=== PATIENT | female | born 1945 | race Caucasian/White ===

== ENCOUNTER 2020-02-04 02:29 | Inpatient (IN) ==
[2020-02-04] MEDS ORDERED: dilTIAZem HCl 5 MG/ML 5 ML VIAL IV ONE (02:51)
[2020-02-04 03:14] LABS: Basophils # (auto) 0.03 K/uL (0-0.2); Basophils % (auto) 0.3 %; Eosinophils % (auto) 1.1 %; Hematocrit (blood only) 39.5 % (37-47); Immature Granulocytes # (auto) 0.03 K/uL (0.00-0.02); Immature Granulocytes % (auto) 0.3 %; Lymphocytes # (auto) 2.08 K/uL (1.2-3.4); Lymphocytes % (auto) 22.6 %; Mean Corpuscular Hemoglobin 29.6 pg (25-34); Mean Corpuscular Hgb Conc 30.4 g/dL (32-36); Mean Corpuscular Volume 97.5 fL (80-100); Mean Platelet Volume 11.8 fL (7.4-10.4); Monocytes # (auto) 0.73 K/uL (0.11-0.59); Monocytes % (auto) 7.9 %; Neutrophils # (auto) 6.25 K/uL (1.4-6.5); Neutrophils % (auto) 67.8 %; Platelet Count 274 K/uL (130-400); Red Blood Count 4.05 M/uL (4.2-5.4); White Blood Count 9.22 K/uL (4.8-10.8)
[2020-02-04 03:26] LABS: Albumin Level 3.4 gm/dl (3.4-5.0); BUN Creatinine Ratio 30.3 (10-20); Calcium 9.2 mg/dl (8.5-10.1); Creatinine Clr Calc Pharmacy 58.7 ml/min; Est GFR (African American) 58.6; Est GFR (Non-African American) 50.5; Magnesium 1.9 mg/dl (1.8-2.4); Potassium 4.5 mmol/L (3.5-5.1)
[2020-02-04 03:45] LABS: Albumin Globulin Ratio 0.8 (0.9-2); Bilirubin,Total 0.6 mg/dl (0.2-1); Globulin 4.1 gm/dl (2.5-4.0); Thyroid Stimulating Hormone 1.89 uIu/ml (0.300-4.500); Total Protein 7.5 gm/dl (6.4-8.2); Troponin I 0.112 ng/ml (0-0.045)
--- NOTE | 2020-02-04 04:05 | Emergency Department Note ---
Impression & Plan Atrial fibrillation with rapid ventricular response, Elevated troponin I level, Abdominal pain ED Provider Note NAME: HOLLEY FLOYD AGE: 74 SEX: F ARRIVES VIA: Ambulance INFORMANT: [Patient][, EMS] ED PROVIDER(S): Elsy Leiva DO CHIEF COMPLAINT: Lower abdominal pain PLAN: Disposition: Admission to the [facility] service Condition: [Good] MEDICAL DECISION MAKING: This is a 74-year-old female patient who presents to the emergency department complaining of pelvic abdominal pain. On physical exam, the patient has significant tachycardia. EKG reveals A. fib with RVR. The patient has no cardiac history. The patient received a dose of IV Cardizem prehospital which did not control her rate. She received a second dose here of 20 mg which brought the rate down into the 80s and 90s but she remains in A. fib. Chest x- ray shows significant cardiomegaly with mild congestive heart failure changes. O2 saturations remained stable. The patient does have a positive troponin. [facility] and [facility] will [facility] for further management. Triage Nursing notes reviewed and agree them. [Additional history obtained from] EMS [Prior medical records reviewed] Vital Signs: reviewed and remarkable for hypertension and tachycardia Differential diagnosis: STEMI, dysrhythmia, CHF ER treatment provided: IV Cardizem Diagnostics interpreted by me: ECG: A. fib with RVR at a rate of 125. There is T wave inversions in leads I and aVL. There is no EKG for comparison n Cardiac Monitoring: Atrial fibrillation with rapid ventricular response Laboratory studies: [See below] Imaging studies: As interpreted by me Chest [id number] cardiomegaly with evidence of congestive heart failure HPI: 74/F arrives for evaluation of lower abdominal pain. This is a 74-year-old female patient who called EMS tonight for lower abdominal pain that started around 10 PM. Upon EMS arrival, they noted that her heart rate was approximately 150. They did a twelve-lead EKG which revealed atrial fibrillation with rapid ventricular response. They called for medical command and were instructed to give 20 mg of IV Cardizem. This brought her rate down into the 90s but she remained in A. fib. The patient was noted to be tachypneic and to have some peripheral edema in her legs. Patient states that she denies any chest pain or shortness of breath. Her last bowel movement was 2 days ago. She denies any cardiac history. She does describe a history of a stroke sometime ago which left her with weakness in her left arm ROS: See above HPI for pertinent positives & negatives. A total of [10] systems reviewed and were otherwise negative. PAST MEDICAL HISTORY:Kidney stones, stroke, hypertension, diabetes PAST SURGICAL HISTORY:None according to the patient SOCIAL HISTORY:She lives with her and denies any tobacco or alcohol use HOME MEDICATIONS:See list ALLERGIES:None VITALS:[See Below] PHYSICAL EXAMINATION: HEENT: Head - normocephalic and atraumatic Pupils are equal, round, and reactive to light. Extraocular eye muscles are intact, and sclera are anicteric. Patient has yellow mucus discharge from both eyes nose - moist nasal mucosa without discharge. Mouth - moist buccal mucosa. Oropharynx is nonerythematous and there is no tonsillar exudate or edema noted. Neck: Supple; no JVD, nuchal rigidity, cervical lymphadenopathy. Heart: Irregularly irregular rhythm with a tachycardic rate there is a normal S1 and S2 with no murmurs, clicks, or gallops appreciated. Lungs: Clear to auscultation bilaterally with no wheezes, rales, or rhonchi. Abdomen: Soft, completely nontender, nondistended, with good bowel sounds. There are no palpable pulsatile masses or hepatosplenomegaly. There is no gu arding, rigidity, or rebound noted. Extremities: 2+ pitting edema both lower extremities Skin: warm and dry with good turgor and no rashes. ED COURSE: Times/Reassessments: 0245: The patient was evaluated in room C9. Prehospital medical command had been given with orders to give 20 mg of IV Cardizem. A complete history and physical was performed. An order was placed for continuous cardiac monitoring. The patient was in atrial fibrillation with a rapid ventricular response with occasional PVCs. Laboratory studies were drawn as above. A portable chest x-ray was obtained. A twelve-lead EKG was obtained. The patient was given a second dose of 20 mg of IV Cardizem. 0320: The patient's heart rate has come down to 90. She remains in atrial fibrillation. I reviewed some of the laboratory studies with the patient. She remains hemodynamically stable. 0400: I reevaluated the patient at this time. Her heart rate remains in the 80s. She is in atrial fibrillation. She is hungry at this time and is eating a turkey sandwich. I discussed the case with Dr. Idalmis Llanes who will evaluate the patient for further care. I have personally spent greater than 30 minutes of critical care time in the direct management of this patient. This includes bedside care, interpretation of diagnostic studies, and testing, discussion with consultants, patient, and family members, and other required patient management activities. This 30 minutes is in excess of all separately billable procedures. Elsy Leiva DO Past Med/Surg History Social History Preferred Language: Upper Sorbian Feels Safe at Home: Yes Smoking Status: Never smoker Allergies Allergies Allergy/AdvReac Type Severity Reaction Status Date / Time No Known Allergies Allergy Unverified 02/04/20 03:40 Home Meds Home Medications Medication Instructions Recorded Confirmed acetaminophen [Tylenol] 325 mg PO Q6H PRN 02/04/20 02/04/20 alprazolam 0.25 mg PO BID PRN 02/04/20 02/04/20 amlodipine 5 mg PO DAILY 02/04/20 02/04/20 aspirin [Ecotrin Low Strength] 81 mg PO DAILY 02/04/20 02/04/20 carvedilol 25 mg PO BID 02/04/20 02/04/20 cyanocobalamin (vitamin B-12) 1,000 mcg SUBLINGUAL DAILY 02/04/20 02/04/20 docusate sodium [Colace] 100 mg PO BID 02/04/20 02/04/20 fluticasone propionate [Flonase 2 spray INTRANASAL DAILY 02/04/20 02/04/20 Allergy Relief] ibuprofen 800 mg PO Q8H PRN 02/04/20 02/04/20 lisinopril 2.5 mg PO DAILY 02/04/20 02/04/20 metformin 1,000 mg PO BID 02/04/20 02/04/20 polyethylene glycol 3350 [Miralax] 17 g PO DAILY PRN 02/04/20 02/04/20 tamsulosin 0.4 mg PO DAILY 02/04/20 02/04/20 temazepam 7.5 mg PO HS PRN 02/04/20 02/04/20 Results & Data (ED) Vital Signs Vital Signs - 24 hr 02/04/20 02:41 02/04/20 02:58 02/04/20 03:02 Temperature 36.9 C Temperature Source Oral Pulse Rate 121 H 84 91 H Pulse Rate from SpO2 Sensor 87 79 Respiratory Rate 32 H 24 24 Respiratory Effort / Characteristics Short of Breath Respiratory Depth Normal Blood Pressure 170/102 H 144/84 H 140/87 Blood Pressure Mean 124 99 102 Pulse Oximetry 93 94 95 Oxygen Delivery Method Room Air Nasal Cannula Nasal Cannula Oxygen Flow Rate 2 2 Sepsis Recent Fever Within 48 Hours No Sepsis New/Unexplained Change in Mental Status No Sepsis Action Taken by Nursing No Action Required Oxygen Flow Rate - Titration Pulse Oximetry Post Tiitration 02/04/20 03:07 02/04/20 03:14 02/04/20 03:16 Temperature Temperature Source Pulse Rate 94 H 82 Pulse Rate from SpO2 Sensor 101 H 84 Respiratory Rate 21 21 Respiratory Effort / Characteristics Respiratory Depth Blood Pressure 141/72 H 132/91 Blood Pressure Mean 99 112 Pulse Oximetry 93 93 97 Oxygen Delivery Method Room Air Nasal Cannula Nasal Cannula Oxygen Flow Rate 2 2 Sepsis Recent Fever Within 48 Hours Sepsis New/Unexplained Change in Mental Status Sepsis Action Taken by Nursing Oxygen Flow Rate - Titration 2 Pulse Oximetry Post Tiitration 95 02/04/20 03:30 02/04/20 03:46 Temperature Temperature Source Pulse Rate 99 H 93 H Pulse Rate from SpO2 Sensor 89 108 H Respiratory Rate 24 17 Respiratory Effort / Characteristics Respiratory Depth Blood Pressure 153/94 H 149/106 H Blood Pressure Mean 107 120 Pulse Oximetry 97 97 Oxygen Delivery Method Nasal Cannula Nasal Cannula Oxygen Flow Rate 2 2 Sepsis Recent Fever Within 48 Hours Sepsis New/Unexplained Change in Mental Status Sepsis Action Taken by Nursing Oxygen Flow Rate - Titration Pulse Oximetry Post Tiitration Laboratory Data Result diagrams: 02/04/20 02:15 02/04/20 02:15 Lab Results 02/04/20 02/04/20 Range/Units 02:15 02:15 WBC 9.22 (4.8-10.8) K/uL RBC 4.05 L (4.2-5.4) M/uL Hgb 12.0 (12.0-16.0) g/dL Hct 39.5 (37-47) % MCV 97.5 (80-100) fL MCH 29.6 (25-34) pg MCHC 30.4 L (32-36) g/dL RDW Std Deviation 52.0 H (36.4-46.3) fL RDW Coeff of Moises 15.0 H (11.5-14.5) % Plt Count 274 (130-400) K/uL MPV 11.8 H (7.4-10.4) fL Immature Gran % (Auto) 0.3 % Neut % (Auto) 67.8 % Lymph % (Auto) 22.6 % Moody % (Auto) 7.9 % Eos % (Auto) 1.1 % Baso % (Auto) 0.3 % Neut # (Auto) 6.25 (1.4-6.5) K/uL Lymph # (Auto) 2.08 (1.2-3.4) K/uL Moody # (Auto) 0.73 H (0.11-0.59) K/uL Eos # (Auto) 0.10 (0-0.5) K/uL Baso # (Auto) 0.03 (0-0.2) K/uL Immature Gran # (Auto) 0.03 H (0.00-0.02) K/uL Sodium 143 (136-145) mmol/L Potassium 4.5 (3.5-5.1) mmol/L Chloride 109 H (98-107) mmol/L Carbon Dioxide 26 (21-32) mmol/L Anion Gap 8.0 (3-11) BUN 33 H (7-18) mg/dl Creatinine 1.08 (0.6-1.2) mg/dl Est Cr Clr Drug Dosing 58.7 ml/min Est GFR ( Amer) 58.6 Est GFR (Non-Af Amer) 50.5 BUN/Creatinine Ratio 30.3 H (10-20) Glucose 209 H (70-99) mg/dl Calcium 9.2 (8.5-10.1) mg/dl Magnesium 1.9 (1.8-2.4) mg/dl Total Bilirubin 0.6 (0.2-1) mg/dl AST 15 (15-37) U/L ALT 34 (12-78) U/L Alkaline Phosphatase 86 (45-117) U/L Troponin I 0.112 H* (0-0.045) ng/ml Total Protein 7.5 (6.4-8.2) gm/dl Albumin 3.4 (3.4-5.0) gm/dl Globulin 4.1 H (2.5-4.0) gm/dl Albumin/Globulin Ratio 0.8 L (0.9-2) Lipase 111 (73-393) U/L TSH 1.890 (0.300-4.500) uIu/ml Administered Medications Discontinued Medications Diltiazem HCl (Cardizem) Confirm Administered Dose 25 mg IV .STK-MED ONE Stop: 02/04/20 02:52 Last Admin: 02/04/20 02:57 Dose: 20 mg Documented by: [id number] Cosigned by: [id number] Discharge Plan Visit Data Chief Complaint: Cardiac Assessment Stated Complaint: Abdominal pain/A-fib ED Provider: Elsy Leiva Discharge Problem: Atrial fibrillation with rapid ventricular response, Elevated troponin I level, Abdominal pain Forms Stand Alone Forms: [facility] [employer] Prescriptions Prescriptions: No Action polyethylene glycol 3350 [Miralax] 17 gram/dose Powder 17 g PO DAILY PRN (Reason: Constipation) RF: 0 metformin 1,000 mg Tablet 1,000 mg PO BID RF: 0 alprazolam 0.25 mg Tablet 0.25 mg PO BID PRN (Reason: Anxiety) RF: 0 docusate sodium [Colace] 100 mg Capsule 100 mg PO BID RF: 0 temazepam 7.5 mg Capsule 7.5 mg PO HS PRN (Reason: Sleep) RF: 0 cyanocobalamin (vitamin B-12) 1,000 mcg Tablet, Sublingual 1,000 mcg SUBLINGUAL DAILY RF: 0 aspirin [Ecotrin Low Strength] 81 mg Tablet,Delayed Release (Dr/Ec) 81 mg PO DAILY RF: 0 acetaminophen [Tylenol] 325 mg Tablet 325 mg PO Q6H PRN (Reason: Pain) RF: 0 tamsulosin 0.4 mg Capsule 0.4 mg PO DAILY RF: 0 fluticasone propionate [Flonase Allergy Relief] 50 mcg/actuation [place],Suspension 2 spray INTRANASAL DAILY RF: 0 amlodipine 5 mg Tablet 5 mg PO DAILY RF: 0 lisinopril 2.5 mg Tablet 2.5 mg PO DAILY RF: 0 carvedilol 25 mg Tablet 25 mg PO BID RF: 0 ibuprofen 800 mg Tablet 800 mg PO Q8H PRN (Reason: rt knee pain) RF: 0 Discharge Problem: Abdominal pain Qualifiers: Abdominal location: lower abdomen, unspecified Qualified Code(s): R10.30 - Lo wer abdominal pain, unspecified
--- NOTE | 2020-02-04 06:15 | History and Physical Report ---
DATE OF ADMISSION: 02/04/2020 CHIEF COMPLAINT: Came with abdominal pain and found to be in rapid AFib. HISTORY OF PRESENT ILLNESS: This is a 74-year-old female with past medical history significant for hyperlipidemia, hypertension, morbid obesity, primary insomnia, anxiety, history of stroke, history of kidney stones, presents with abdominal pain. The patient lives with her . She is from [place]. She says she was having lower abdominal pain at 10:00 p.m. last night and she could not get to sleep. She was tossing around and she called EMS and came to the hospital. Currently, her abdominal pain got resolved, but she was found to be in rapid AFib when she came in and her troponin were mildly elevated. The patient denies any chest pain. She says she has some shortness of breath on exertion. She has some occasional cough. She says she is wheelchair bound since last few months, before she was able to ambulate with walker, but because of back pain and leg pain, she is not able to stand on legs anymore. Denies any nausea, no headache, no blurred visions. Hard of hearing. No fever, no chills, no sore throat, no dysphagia. Currently, no abdominal pain. Normal bowel and bladder movements. ALLERGIES: PERCOCET. PAST MEDICAL HISTORY: As mentioned above. PAST SURGICAL HISTORY: No past surgical history on file. MEDICATIONS: Currently the patient is on Tylenol 325 mg p.o. q. 6 hours p.r.n., alprazolam 0.25 mg p.o. b.i.d. p.r.n., amlodipine 5 mg p.o. daily, aspirin 81 mg p.o. daily, Coreg 25 mg p.o. b.i.d., vitamin B12 1000 mcg sublingual daily, Colace 100 mg p.o. b.i.d., Flonase 2 sprays intranasal daily, ibuprofen 800 mg p.o. q. 8 hours p.r.n., lisinopril 2.5 mg p.o. daily, metformin 1000 mg p.o. b.i.d., MiraLax 17 grams p.o. daily p.r.n., Flomax 0.4 mg p.o. daily, temazepam 7.5 mg p.o. at bedtime p.r.n. FAMILY HISTORY: Significant for sister has stroke. SOCIAL HISTORY: No smoking. REVIEW OF SYMPTOMS: As per HPI. Rest of the review of symptoms negative. PHYSICAL EXAMINATION: GENERAL: The patient is morbidly obese, not in acute distress. VITAL SIGNS: Temperature 36.9, pulse currently 110, respiratory rate 22, blood pressure 125/94, oxygen 95% on 2 liters. HEENT: No pallor, no icterus. Pupils equal, round, reactive to light. NECK: No JVD, no neck masses. CARDIOVASCULAR: S1, S2 heard, regular rhythm. Tachycardia. RESPIRATORY SYSTEM: Normal AP diameter. No accessory muscle use. No wheezing, no crackles. ABDOMEN: Soft, bowel sounds present, nontender. No distention. CENTRAL NERVOUS SYSTEM: Alert and oriented. Obeys simple commands. Moves extremities. EXTREMITIES: No edema, no erythema seen. LABORATORY DATA: WBC 9.2, hemoglobin 12, hematocrit 39.5, platelets 274. Sodium 143, potassium 4.5, chloride 109, bicarbonate 26, BUN 33, creatinine 1.08, serum glucose 209, calcium 9.2, magnesium 1.9, total bilirubin 0.6, AST 15, ALT 34, alkaline phosphatase 86. Troponin I 0.11, lipase 111. TSH 1.89. IMAGING: Chest x-ray, cardiomegaly. EKG: Atrial fibrillation with RVR at rate of 125. ASSESSMENT AND PLAN: A 74-year-old female who presents with abdominal pain, which got resolved, now found to have rapid atrial fibrillation and mild elevation of troponin. 1. Rapid atrial fibrillation, new onset. Will continue home Coreg. We will place on IV Lopressor p.r.n., IV heparin, echocardiogram, serial cardiac enzymes, consult cardiology for further recommendations. Continue home aspirin. 2. Chronic systolic congestive heart failure: Her echo done in last month at [facility] showed EF of 45-50%. She is not on any diuretics. Continue lisinopril, Coreg. We will follow today's echo. Await cardiac input. 3. Mild elevation of troponin: Could be demand ischemia from atrial fibrillation. We will follow serial enzymes and echocardiogram. 4. History of diabetes: Hold metformin, placed on insulin sliding scale. Follow the blood sugars, follow HbA1c levels. 5. History of hypertension: Continue amlodipine, Coreg, and lisinopril. We will monitor the blood pressure. 6. History of kidney stones: On Flomax. 7. History of primary insomnia: On temazepam p.r.n. 8. History of stroke: On aspirin. We will follow fasting lipid profile. 9. Anxiety: On alprazolam p.r.n. 10. Morbid obesity: Needs counseling, nocturnal pulse ox study while she is in the hospital. May need sleep study as outpatient. 11. Deep venous thrombosis prophylaxis: IV heparin. DISPOSITION: Admit to tele floor. Expect to discharge home and follow with family doctor. Level 1 full code. Social Service to help with discharge planning. MTDD
[2020-02-04] MEDS ORDERED: ONDANSETRON INJ 2 MG/ML 2 ML VIAL IV PRN (06:18)
[2020-02-04] MEDS ORDERED: ALPRAZolam 0.25 MG TABLET PO PRN (06:18)
[2020-02-04] MEDS ORDERED: NITROGLYCERIN SL 0.4 MG/TAB TAB SL PRN (06:18)
[2020-02-04] MEDS ORDERED: POLYETHYLENE (MIRALAX) 17 GM PACK PO PRN (06:18)
[2020-02-04] MEDS ORDERED: Heparin IV Standard *NO* Bolus IV SCH (06:30)
--- NOTE | 2020-02-04 06:39 | XRay Report ---
XR chest 1V portable CLINICAL HISTORY: afib cardiac arrhythmia COMPARISON STUDY: No previous studies for comparison. FINDINGS: Moderate cardiac megaly. Prominent pulmonary vasculature. Diaphragms are smooth. IMPRESSION: Congestive heart failure ACT 112: Negative or not required by law. The above report was generated using voice recognition software. It may contain grammatical, syntax or spelling errors. Electronically signed by: Elijah Shaw M.D. 02/04/2020 6:38 AM
[2020-02-04] MEDS ORDERED: GLUCOSE 10 TABS/TUBE PO PRN (06:45)
[2020-02-04] MEDS ORDERED: DEXTROSE 50% 50 ML SYRINGE IV PRN (06:45)
[2020-02-04] MEDS ORDERED: CARBOHYDRATES FOR HYPOGLYCEMIA PO PRN (06:45)
[2020-02-04] MEDS ORDERED: GLUCAGON FOR INJ 1 MG VIAL IM PRN (06:45)
[2020-02-04] MEDS ORDERED: GLUCOSE 40% GEL 15 GM TUBE PO PRN (06:45)
[2020-02-04 07:09] LABS: INR 1.2 (0.9-1.1); Partial Thromboplastin Ratio 0.9; Partial Thromboplastin Time 25.1 Seconds (21.0-31.0); Prothrombin Time 12.4 Seconds (9.0-12.0)
[2020-02-04] MEDS: HEPARIN SODIUM/DEXTROSE 25,000 UNITS/500 ML BAG IV SCH (07:42)
[2020-02-04] MEDS: INSULIN ASPART 100 UNITS/ML 3 ML PEN SC SCH ×4 (07:53→20:56)
[2020-02-04] MEDS: DOCUSATE SODIUM 100 MG CAP PO SCH ×2 (07:54→20:55)
[2020-02-04] MEDS: ASPIRIN 81 MG ECTAB PO SCH (07:54)
[2020-02-04] MEDS: TAMSULOSIN HCL 0.4 MG CAP PO SCH (07:55)
[2020-02-04] MEDS: AMLODIPINE BESYLATE 5 MG TAB PO SCH (07:55)
[2020-02-04] MEDS: FLUTICASONE PROPIONATE NA SPR 16 GM BTL SCH (07:55)
[2020-02-04] MEDS: CYANOCOBALAMIN 500 MCG TABLET (VITAMIN B-12) PO SCH (07:56)
[2020-02-04] MEDS: METOPROLOL TARTRATE 1 MG/ML VIAL IV PRN (08:14)
[2020-02-04] MEDS ORDERED: carvediloL 25 MG TAB PO SCH (09:00)
--- NOTE | 2020-02-04 09:05 | Cardiology Consultation ---
Date of Consultation February 04, 2020 Assessment & Plan (1) Atrial fibrillation with rapid ventricular response: (2) Acute systolic (congestive) heart failure: (3) Elevated troponin I level: Discontinue carvedilol in favor of metoprolol to improve rate control. Consider addition of digoxin to improve heart rate control if necessary. Stroke risk discussed with patient at length. Continue IV heparin at this time with plans for transition to apixaban at discharge. Repeat ECG in a.m. Plan external direct-current cardioversion after 4 weeks of adequate anticoagulation. Continue rate control strategy for the time being, however, transesophageal guided direct current cardioversion may be considered during hospitalization if rates are difficult to control and patient fails to improve clinically. Recommend IV Lasix 20 mg twice daily. Continue lisinopril as previously ordered. Consider addition of Aldactone during hospitalization. Repeat basic metabolic panel in a.m. Further ischemic evaluation is warranted. Consider cardiac catheterization during hospitalization. History of Present Illness Reason for Consultation: Atrial fibrillation with rapid ventricular response Elevated troponin Requesting Physician: Dr. Wilkerson Attending Physician: Umair Wilkerson MD History of Present Illness 74-year-old female presented emergency department with abdominal pain. Discomfort began around 10 PM. ECG in the ER demonstrated atrial fibrillation with rapid ventricular response. She was treated with 20 mg of intravenous Cardizem. No history of atrial fibrillation. IV heparin initiated and patient was admitted to the progressive care unit. Chest x-ray reveals pulmonary vascular congestion. Patient denies chest discomfort, palpitations, or shortness of breath. Reports chronic dyspnea on exertion mild lower extremity edema. No orthopnea or paroxysmal nocturnal dyspnea. Currently unaware of her atrial fibrillation. Telemetry demonstrates heart rates ranging from 110 to 125 bpm. No lightheadedness, dizziness, syncope, or near syncope. Preliminary review of resting 2D transthoracic echocardiogram demonstrates severe cardiomyopathy with ejection fraction of 25 to 30%. No significant valvular pathology. Evidence of mild pulmonary hypertension and IVC dilation. Allergies Allergy/AdvReac Type Severity Reaction Status Date / Time No Known Allergies Allergy Unverified 02/04/20 03:40 Home Medications Home Medications Medication Instructions Recorded Confirmed Type acetaminophen [Tylenol] 325 mg PO Q6H PRN 02/04/20 02/04/20 History alprazolam 0.25 mg PO BID PRN 02/04/20 02/04/20 History amlodipine 5 mg PO DAILY 02/04/20 02/04/20 History aspirin [Ecotrin Low Strength] 81 mg PO DAILY 02/04/20 02/04/20 History carvedilol 25 mg PO BID 02/04/20 02/04/20 History cyanocobalamin (vitamin B-12) 1,000 mcg SUBLINGUAL DAILY 02/04/20 02/04/20 History docusate sodium [Colace] 100 mg PO BID 02/04/20 02/04/20 History fluticasone propionate [Flonase 2 spray INTRANASAL DAILY 02/04/20 02/04/20 History Allergy Relief] ibuprofen 800 mg PO Q8H PRN 02/04/20 02/04/20 History lisinopril 2.5 mg PO DAILY 02/04/20 02/04/20 History metformin 1,000 mg PO BID 02/04/20 02/04/20 History polyethylene glycol 3350 [Miralax] 17 g PO DAILY PRN 02/04/20 02/04/20 History tamsulosin 0.4 mg PO DAILY 02/04/20 02/04/20 History temazepam 7.5 mg PO HS PRN 02/04/20 02/04/20 History Patient History Social History Preferred Language: Yemeni Communication Ability: Effective Correctional Case Manager Required: No Beliefs That Will Affect Care: None Current Living Situation: Spouse Other Information That Helps Us Care for You: No Feels Safe at Home: Yes Safety Concerns: Feels Safe At This Time Smoking Status: Never smoker Hx Alcohol Use: No Hx Substance Use: No Review of Systems Review of Systems: All systems reviewed & are unremarkable except as noted in HPI & below Physical Exam Constitutional: well developed, well nourished and + morbidly obese Respiratory: normal respiratory effort; no respiratory distress, no labored breathing, no retractions and does not use accessory muscles Auscultation: + rales (Bilateral bases); no crackles, no rhonchi and no wheezes Cardiovascular: Rate/Rhythm: + tachycardic and + irregularly irregular Heart Sounds: normal S1 and normal S2; no murmur Vessels: radial pulses present; no JVD (Difficult to assess due to body habitus) and no carotid bruit Extremities: + edema (Mild bilateral pedal and ankle edema) Gastrointestinal (Abdomen): Inspection/Auscultation: abdomen normal to inspection and normal bowel sounds; abdomen not distended Percussion/Palpation: abdomen soft; abdomen nontender, no guarding and abdomen not rigid Skin: no rashes, warm and dry Neurologic: CN's II-XI intact bilaterally; no focal motor deficits Speech / Cognition: normal speech Motor/Sensory: no tremor Psychiatric: A+Ox3, euthymic affect Results & Data ([facility]) Vital Signs (Past 12 Hours) Vital Signs Temp Pulse Pulse Resp BP BP Pulse Ox 02/04/20 08:14 133 H 02/04/20 07:48 36.6 C 133 H 20 155/106 H 94 02/04/20 06:03 36.6 C 108 H 20 149/78 H 92 02/04/20 04:56 112 H 19 146/95 H 95 02/04/20 04:15 110 H 22 125/94 95 02/04/20 03:46 93 H 17 149/106 H 97 02/04/20 03:30 99 H 24 153/94 H 97 02/04/20 03:16 82 21 132/91 97 02/04/20 03:14 94 H 21 141/72 H 93 02/04/20 03:07 93 02/04/20 03:02 91 H 24 140/87 95 02/04/20 02:58 84 24 144/84 H 94 02/04/20 02:41 36.9 C 121 H 32 H 170/102 H 93
[2020-02-04] MEDS: FUROSEMIDE 20 MG in SYRINGE 0 ML IV SCH ×2 (12:29→20:55)
[2020-02-04] MEDS: METOPROLOL TARTRATE 25 MG TAB PO SCH ×3 (12:31→23:11)
[2020-02-04 14:24] LABS: BUN Creatinine Ratio 29.4 (10-20); Calcium 9.1 mg/dl (8.5-10.1); Creatinine Clr Calc Pharmacy 57.9 ml/min; Est GFR (African American) 58.6; Est GFR (Non-African American) 50.5; Magnesium 1.9 mg/dl (1.8-2.4); Potassium 4.2 mmol/L (3.5-5.1)
[2020-02-04 14:26] LABS: Partial Thromboplastin Ratio 2.6
[2020-02-04 14:32] LABS: Troponin I 0.106 ng/ml (0-0.045)
--- NOTE | 2020-02-04 14:32 | Hospitalist Progress Note ---
Date of Service February 04, 2020 Assessment & Plan (1) Atrial fibrillation with rapid ventricular response: -as per ED notes on 02/04/2020: 74-year-old female patient who presents to the emergency department complaining of pelvic abdominal pain. On physical exam, the patient has significant tachycardia. EKG reveals A. fib with RVR -as per admitting hospitalist: Her echo done in last month at [facility] showed EF of 45-50%. patient was also initiated on IV heparin drip -cardiology consult on 02/14/2020 recommended to carvedilol in favor of metoprolol to improve rate control. -continue IV heparin for now and possible plans plans for transition to apixaban at discharge. (2) Acute systolic (congestive) heart failure: -history as above -echocardiogram performed at [facility] on 02/04/2020 with Ejection fraction of 25 to 30% and severe global hypokinesis -beta manjeet as above -currently on Lasix 20 mg IV BID -continue home dose lisinopril 2.5 mg daily and aspirin 81 mg daily (3) Elevated troponin I level: -troponin levels around 0.1 (4) Abdominal pain: -unclear whether her abdominal pain was reflective of underlying atrial fibrillation with RVR -abdominal pain appears resolved -she does report of history of kidney stones months ago, on flomax -continue to observe (5) Hypertension: -continue amlodipine and lisinopril -beta blockers as above, IV Lasix (6) Morbidly obese: -morbid obesity with BMI of 39.8 -patient may benefit with sleep study as outpatient Type 2 diabetes mellitus 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 -HbA1c 6.9 Anxiety: History of primary insomnia -On temazepam p.r.n. -On alprazolam p.r.n. History of stroke in the past -On aspirin -currently on IV heparin for cardiac indications Admission and Anticipated Discharge Date Admission Date: February 04, 2020 Subjective Patient on Iv heparin drip, she reports she is feeling more comfortable compared to earlier this morning. her breathing is comfortable as per patient. no chest pain currently. no vomiting. no abdomen pain. Review of Systems Review of Systems: All systems reviewed & are unremarkable except as noted in Subjective Physical Exam Constitutional: + obese and cooperative Eyes: PERRL, conjunctivae normal, anicteric sclerae EOM intact bilaterally ENMT: external ear and nose normal, oropharynx normal Neck: normal visual inspection Respiratory: normal respiratory effort, lungs clear to auscultation Cardiovascular: Rate/Rhythm: + tachycardic and + irregularly irregular Gastrointestinal (Abdomen): normal bowel sounds, soft, nontender, no hep atosplenomegaly Musculoskeletal: Head/Neck/Chest: normocephalic and head atraumatic Neurologic: PERRL, EOMI, accommodation nl, no face palsy, no dysarthria CN's II-XI intact bilaterally Psychiatric: A+Ox3, euthymic affect Results & Data Results & Data ([facility]) Vital Signs (Past 12 Hours) Vital Signs Temp Pulse Pulse Resp BP BP Pulse Ox 02/04/20 11:52 36.6 C 111 H 22 147/83 H 97 02/04/20 08:14 133 H 02/04/20 07:48 36.6 C 133 H 20 155/106 H 94 02/04/20 06:03 36.6 C 108 H 20 149/78 H 92 02/04/20 04:56 112 H 19 146/95 H 95 02/04/20 04:15 110 H 22 125/94 95 02/04/20 03:46 93 H 17 149/106 H 97 02/04/20 03:30 99 H 24 153/94 H 97 02/04/20 03:16 82 21 132/91 97 02/04/20 03:14 94 H 21 141/72 H 93 02/04/20 03:07 93 02/04/20 03:02 91 H 24 140/87 95 02/04/20 02:58 84 24 144/84 H 94 02/04/20 02:41 36.9 C 121 H 32 H 170/102 H 93 (1) Abdominal pain Abdominal location: lower abdomen, unspecified Qualified Code(s): R10.30 - Lower abdominal pain, unspecified
[2020-02-04 14:33] LABS: Estimated Average Glucose 151 mg/dl; Hemoglobin A1C 6.9 % (4.5-5.6)
[2020-02-04] MEDS: ACETAMINOPHEN 325 MG TAB PO PRN (15:35)
[2020-02-04 20:59] LABS: Partial Thromboplastin Time 84.3 Seconds (21.0-31.0)
[2020-02-05] MEDS: ACETAMINOPHEN 325 MG TAB PO PRN ×3 (01:16→17:15)
[2020-02-05] MEDS: HEPARIN SODIUM/DEXTROSE 25,000 UNITS/500 ML BAG IV SCH ×2 (03:02→04:59)
[2020-02-05 03:37] LABS: Basophils # (auto) 0.02 K/uL (0-0.2); Basophils % (auto) 0.3 %; Eosinophils # (auto) 0.14 K/uL (0-0.5); Eosinophils % (auto) 1.9 %; Hematocrit (blood only) 34.4 % (37-47); Hemoglobin 11.4 g/dL (12.0-16.0); Immature Granulocytes # (auto) 0.02 K/uL (0.00-0.02); Immature Granulocytes % (auto) 0.3 %; Lymphocytes # (auto) 1.55 K/uL (1.2-3.4); Lymphocytes % (auto) 21.1 %; Mean Corpuscular Hemoglobin 31.2 pg (25-34); Mean Corpuscular Hgb Conc 33.1 g/dL (32-36); Mean Corpuscular Volume 94.2 fL (80-100); Monocytes # (auto) 0.66 K/uL (0.11-0.59); Neutrophils # (auto) 4.96 K/uL (1.4-6.5); Neutrophils % (auto) 67.4 %; Platelet Count 207 K/uL (130-400); RDW Standard Deviation 50.8 fL (36.4-46.3); Red Blood Count 3.65 M/uL (4.2-5.4); White Blood Count 7.35 K/uL (4.8-10.8)
[2020-02-05 03:54] LABS: BUN Creatinine Ratio 29.5 (10-20); Calcium 8.9 mg/dl (8.5-10.1); Creatinine Clr Calc Pharmacy 55.9 ml/min; Est GFR (Non-African American) 48.4; Magnesium 1.8 mg/dl (1.8-2.4); Phosphorus 4.1 mg/dl (2.5-4.9); Potassium 3.9 mmol/L (3.5-5.1)
[2020-02-05 03:58] LABS: Partial Thromboplastin Ratio 3.3
[2020-02-05 04:12] LABS: Partial Thromboplastin Time 92.5 Seconds (21.0-31.0)
[2020-02-05] MEDS: METOPROLOL TARTRATE 25 MG TAB PO SCH (05:36)
--- NOTE | 2020-02-05 07:11 | Electrocardiogram Report ---
Test Reason : Blood Pressure : / mmHG Vent. Rate : 125 BPM Atrial Rate : 144 BPM P-R Int : 000 ms QRS Dur : 106 ms QT Int : 318 ms P-R-T Axes : 000 026 177 degrees QTc Int : 458 ms Atrial fibrillation with rapid ventricular response Nonspecific T wave abnormality Abnormal ECG No previous ECGs available Confirmed by Kenneth Delcid ([id number]) on 02/05/2020 7:11:11 AM Referred By: REFERRED SELF Confirmed By:Kenneth Delcid
[2020-02-05] MEDS: INSULIN ASPART 100 UNITS/ML 3 ML PEN SC SCH ×4 (07:57→20:39)
[2020-02-05] MEDS: FLUTICASONE PROPIONATE NA SPR 16 GM BTL SCH (08:00)
[2020-02-05] MEDS: DOCUSATE SODIUM 100 MG CAP PO SCH ×2 (08:00→20:37)
[2020-02-05] MEDS: TAMSULOSIN HCL 0.4 MG CAP PO SCH (08:00)
[2020-02-05] MEDS: ASPIRIN 81 MG ECTAB PO SCH (08:00)
[2020-02-05] MEDS: FUROSEMIDE 20 MG in SYRINGE 0 ML IV SCH (08:01)
[2020-02-05] MEDS: AMLODIPINE BESYLATE 5 MG TAB PO SCH (08:01)
[2020-02-05] MEDS: CYANOCOBALAMIN 500 MCG TABLET (VITAMIN B-12) PO SCH (08:02)
[2020-02-05] MEDS: METOPROLOL TARTRATE 1 MG/ML VIAL IV PRN (10:21)
--- NOTE | 2020-02-05 10:59 | Cardiology Progress Note ---
Date of Service February 05, 2020 Assessment & Plan (1) Atrial fibrillation with rapid ventricular response: (2) Acute systolic (congestive) heart failure: (3) Dilated cardiomyopathy: (4) Elevated troponin I level: Plan upward titration of medical therapies. Patient will require additional diuresis and increased rate control Will increase furosemide to 40 mg 3 times daily. Discontinue metoprolol tartrate switch to metoprolol succinate 50 mg 3 times daily Increase lisinopril to 2.5 mg twice daily, consider reduction in amlodipine depending on blood pressure response, renal function Continue anticoagulation with IV heparin with plan to transition to oral regimen on discharge Plan external direct-current cardioversion after 4 weeks of adequate anticoagulation. Continue rate control strategy for the time being May warrant ischemic evaluation given diffuse LV dysfunction Subjective Patient was seen and examined, chart, medications, telemetry reviewed. Patient sitting out of bed in chair without acute complaints. Still moderately dyspneic. No significant diuresis overnight in atrial fibrillation remains with elevated ventricular response rate. Physical Exam Constitutional: + morbidly obese; no acute distress Eyes: PERRL, conjunctivae normal, anicteric sclerae ENMT: external ear and nose normal, oropharynx normal Neck: + thick neck Respiratory: Auscultation: + diminished lung sounds Cardiovascular: Rate/Rhythm: + tachycardic and + irregularly irregular Ex tremities: + edema (1-2+) Gastrointestinal (Abdomen): Soft obese Musculoskeletal: no cyanosis or clubbing, extremities motor strength 5/5 Results & Data Vital Signs (Past 12 Hours) Vital Signs Temp Pulse Pulse Pulse Resp BP Pulse Ox 02/05/20 10:21 133 H 02/05/20 07:43 36.4 C L 117 H 18 138/85 94 02/05/20 03:09 36.5 C 78 20 125/87 94 02/05/20 03:04 85 02/04/20 23:30 124 H 02/04/20 23:17 61 02/04/20 23:09 36.5 C 96 H 18 165/90 H 94 Pulse Ox 02/05/20 10:21 02/05/20 07:43 02/05/20 03:09 02/05/20 03:04 95 02/04/20 23:30 02/04/20 23:17 97 02/04/20 23:09 Laboratory Results Laboratory Results - last 24 hr 07/05/1602/04/20 02/04/20 11:24 13:50 13:50 WBC RBC Hgb Hct MCV MCH MCHC RDW Std Deviation RDW Coeff of Moises Plt Count MPV Immature Gran % (Auto) Neut % (Auto) Lymph % (Auto) Stephenson % (Auto) Eos % (Auto) Baso % (Auto) Neut # (Auto) Lymph # (Auto) Stephenson # (Auto) Eos # (Auto) Baso # (Auto) Immature Gran # (Auto) APTT PTT Ratio Sodium 140 Potassium 4.2 Chloride 108 H Carbon Dioxide 24 Anion Gap 8.0 BUN 32 H Creatinine 1.08 Est Cr Clr Drug Dosing 57.9 Est GFR ( Amer) 58.6 Est GFR (Non-Af Amer) 50.5 BUN/Creatinine Ratio 29.4 H Glucose 167 H POC Glucose 146 H Estimat Average Glucose 151 Hemoglobin A1c 6.9 H Calcium 9.1 Phosphorus Magnesium 1.9 Troponin I 0.106 H* 02/04/20 02/04/20 02/04/20 13:50 16:44 20:17 WBC RBC Hgb Hct MCV MCH MCHC RDW Std Deviation RDW Coeff of Moises Plt Count MPV Immature Gran % (Auto) Neut % (Auto) Lymph % (Auto) Stephenson % (Auto) Eos % (Auto) Baso % (Auto) Neut # (Auto) Lymph # (Auto) Stephenson # (Auto) Eos # (Auto) Baso # (Auto) Immature Gran # (Auto) APTT 72.0 H* 84.3 H* PTT Ratio 2.6 3.0 Sodium Potassium Chloride Carbon Dioxide Anion Gap BUN Creatinine Est Cr Clr Drug Dosing Est GFR ( Amer) Est GFR (Non-Af Amer) BUN/Creatinine Ratio Glucose POC Glucose 164 H Estimat Average Glucose Hemoglobin A1c Calcium Phosphorus Magnesium Troponin I 02/04/20 02/05/20 02/05/20 20:50 03:25 03:25 WBC 7.35 RBC 3.65 L Hgb 11.4 L Hct 34.4 L MCV 94.2 MCH 31.2 MCHC 33.1 RDW Std Deviation 50.8 H RDW Coeff of Moises 15.0 H Plt Count 207 MPV 11.0 H Immature Gran % (Auto) 0.3 Neut % (Auto) 67.4 Lymph % (Auto) 21.1 Stephenson % (Auto) 9.0 Eos % (Auto) 1.9 Baso % (Auto) 0.3 Neut # (Auto) 4.96 Lymph # (Auto) 1.55 Stephenson # (Auto) 0.66 H Eos # (Auto) 0.14 Baso # (Auto) 0.02 Immature Gran # (Auto) 0.02 APTT PTT Ratio Sodium 141 Potassium 3.9 Chloride 105 Carbon Dioxide 28 Anion Gap 8.0 BUN 33 H Creatinine 1.12 Est Cr Clr Drug Dosing 55.9 Est GFR ( Amer) 56.0 Est GFR (Non-Af Amer) 48.4 BUN/Creatinine Ratio 29.5 H Glucose 170 H POC Glucose 136 H Estimat Average Glucose Hemoglobin A1c Calcium 8.9 Phosphorus 4.1 Magnesium 1.8 Troponin I 02/05/20 02/05/20 03:25 07:27 WBC RBC Hgb Hct MCV MCH MCHC RDW Std Deviation RDW Coeff of Moises Plt Count MPV Immature Gran % (Auto) Neut % (Auto) Lymph % (Auto) Stephenson % (Auto) Eos % (Auto) Baso % (Auto) Neut # (Auto) Lymph # (Auto) Stephenson # (Auto) Eos # (Auto) Baso # (Auto) Immature Gran # (Auto) APTT 92.5 H* PTT Ratio 3.3 Sodium Potassium Chloride Carbon Dioxide Anion Gap BUN Creatinine Est Cr Clr Drug Dosing Est GFR ( Amer) Est GFR (Non-Af Amer) BUN/Creatinine Ratio Glucose POC Glucose 158 H Estimat Average Glucose Hemoglobin A1c Calcium Phosphorus Magnesium Troponin I ECG Additional Comments: 05-FEB-2020 06:38:38 [facility]-MEDICU ROUTINE RETRIEVAL Atrial fibrillation with rapid ventricular response with premature ventricular or aberrantly conducted complexes Low voltage QRS Abnormal ECG When compared with E CG of 04-FEB-2020 02:36, No significant change was found
[2020-02-05] MEDS ORDERED: BISMUTH SUBSALICYLATE SUSP PO STA (11:51)
--- NOTE | 2020-02-05 11:56 | Hospitalist Progress Note ---
Date of Service February 05, 2020 Assessment & Plan (1) Atrial fibrillation with rapid ventricular response: -as per ED notes on 02/04/2020: 74-year-old female patient who presents to the emergency department complaining of pelvic abdominal pain. On physical exam, the patient has significant tachycardia. EKG reveals A. fib with RVR -as per admitting hospitalist: Her echo done in last month at [facility] showed EF of 45-50%. patient was also initiated on IV heparin drip -cardiology consult on 02/04/2020 recommended to carvedilol in favor of metoprolol to improve rate control. -continue IV heparin for now and possible plans plans for transition to apixaban at discharge. (2) Acute systolic (congestive) heart failure: -history as above -echocardiogram performed at [facility] on 02/04/2020 with Ejection fraction of 25 to 30% and severe global hypokinesis -beta manjeet as above -on diuresis with Lasix -as per cardiology consult 02/05/2020 increase furosemide to 40 mg 3 times daily. Discontinue metoprolol tartrate switch to metoprolol succinate 50 mg 3 times daily Increase lisinopril to 2.5 mg twice daily, consider reduction in amlodipine depending on blood pressure response, renal function Continue anticoagulation with IV heparin with plan to transition to oral regimen on discharge (3) Elevated troponin I level: -troponin levels around 0.1 (4) Abdominal pain: -unclear whether her abdominal pain was reflective of underlying atrial fibrillation with RVR -she does report of history of kidney stones months ago, on flomax -increase bowel regimen -CT abdomen ordered for 02/05/20 (5) Hypertension: -continue amlodipine and lisinopril -beta blockers as above, IV Lasix (6) Morbidly obese: -morbid obesity with BMI of 39.8 -patient may benefit with sleep study as outpatient 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 -HbA1c 6.9 Anxiety: History of primary insomnia -On temazepam p.r.n. -On alprazolam p.r.n. History of stroke in the past -On aspirin -currently on IV heparin for cardiac indications Admission and Anticipated Discharge Date Admission Date: February 04, 2020 Subjective patient continues to have atrial fibrillation with RVR. on room air. no respiratory distress. no chest pain. her abdomen pain is left lower quadrant, no vomiting, she reports no bowel movements in 3 days. no dizziness. no lightheadedness Review of Systems Review of Systems: All systems reviewed & are unremarkable except as noted in Subjective Physical Exam Constitutional: + obese and cooperative Eyes: PERRL, conjunctivae normal, anicteric sclerae EOM intact bilaterally ENMT: external ear and nose normal, oropharynx normal Neck: normal visual inspection Respiratory: normal respiratory effort, lungs clear to auscultation Cardiovascular: Rate/Rhythm: + tachycardic and + irregularly irregular Gastrointestinal (Abdomen): normal bowel sounds, soft, nontender, no hepatosplenomegaly Musculoskeletal: Head/Neck/Chest: normocephalic and head atraumatic Neurologic: PERRL, EOMI, accommodation nl, no face palsy, no dysarthria CN's II-XI intact bilaterally Psychiatric: A+Ox3, euthymic affect Results & Data Results & Data ([facility]) Vital Signs (Past 12 Hours) Vital Signs Temp Pulse Pulse Pulse Resp BP Pulse Ox 02/05/20 10:21 133 H 02/05/20 07:43 36.4 C L 117 H 18 138/85 94 02/05/20 03:09 36.5 C 78 20 125/87 94 02/05/20 03:04 85 Pulse Ox 02/05/20 10:21 02/05/20 07:43 02/05/20 03:09 02/05/20 03:04 95 (1) Abdominal pain Abdominal location: lower abdomen, unspecified Qualified Code(s): R10.30 - L ower abdominal pain, unspecified
[2020-02-05 12:09] LABS: Partial Thromboplastin Ratio 2.3
[2020-02-05 12:16] LABS: Partial Thromboplastin Time 64.9 Seconds (21.0-31.0)
[2020-02-05] MEDS: POLYETHYLENE (MIRALAX) 17 GM PACK PO SCH ×2 (12:42→23:06)
--- NOTE | 2020-02-05 12:42 | Electrocardiogram Report ---
Test Reason : Blood Pressure : / mmHG Vent. Rate : 127 BPM Atrial Rate : 055 BPM P-R Int : 000 ms QRS Dur : 114 ms QT Int : 312 ms P-R-T Axes : 000 073 088 degrees QTc Int : 453 ms Atrial fibrillation with rapid ventricular response with premature ventricular or aberrantly conducte d complexes Low voltage QRS Nonspecific T wave abnormality Abnormal ECG When compared with ECG of 04-FEB-2020 02:36, No significant change was found Confirmed by Levi White ([id number]) on 02/05/2020 12:41:55 PM Referred By: REFERRED SELF Confirmed By:Levi White
[2020-02-05] MEDS: SENNA 8.6 MG TAB PO SCH (12:46)
[2020-02-05] MEDS: FUROSEMIDE 40 MG in SYRINGE 0 ML IV SCH ×2 (13:45→20:36)
[2020-02-05] MEDS: METOPROLOL SUCC 50MG EXT REL TAB PO SCH ×2 (13:45→20:37)
[2020-02-05] MEDS ORDERED: IOVERSOL 100ml IV PRN (14:34)
--- NOTE | 2020-02-05 14:46 | CT Scan Report ---
CT SCAN OF THE ABDOMEN AND PELVIS WITH IV CONTRAST CLINICAL HISTORY: Generalized abdominal pain. COMPARISON STUDY: No priors. TECHNIQUE: Following the IV administration of 94 cc of Optiray 320, CT scan of the abdomen and pelvi s is performed from the lung bases to the proximal femora. Images are reviewed in the axial, sagittal , and coronal planes. IV contrast was administered without complication. Oral contrast was utilized. A dose lowering technique was utilized adhering to the principles of ALARA. The examination is degrad ed by large body habitus, and by streak artifact from the body wall abutting the CT gantry. The [place] is also degraded by motion artifact. CT DOSE: 1647.47 mGy.cm FINDINGS: Lung bases: The heart is enlarged noting trace pericardial effusion. There are small right and trace left pleural effusions with dependent atelectasis. Liver: The contrast-enhanced liver is mildly enlarged measuring 18.3 cm in length. Hepatic attenuatio n is heterogeneous. There is no intrahepatic biliary ductal dilatation. The hepatic veins and portal veins are patent. Gallbladder: Unremarkable. Spleen: Normal in size and attenuation. Pancreas: Moderately atrophic and grossly unremarkable. Adrenal glands: Unremarkable. Kidneys: The contrast enhanced kidneys are atrophic and without hydronephrosis. The kidneys enhance s ymmetrically. Abdominal vasculature: The abdominal aorta is normal in course and caliber noting moderate atheroscle rotic calcification. Bowel: There is no bowel obstruction. Enteric contrast reaches the cecum mild fecal retention is note d in the colon. The appendix is normal as visualized. Peritoneum: There is no intraperitoneal free air or abdominal ascites. Lymphadenopathy: None. Pelvic viscera: The bladder is decompressed around a Martinez catheter and cannot be evaluated. The uter us is normal as imaged. There is a 5 cm simple appearing cystic lesion identified in the left ovary o n image #[id number]. Skeletal structures: The skeletal structures are osteopenic. Moderate lumbosacral spondylosis is obse rved. No lytic or blastic lesions are seen. IMPRESSION: 1. Streak and motion degraded examination. 2. No acute infectious or inflammatory findings are identified in the abdomen or pelvis. 3. Cardiomegaly and pleural effusions. 4. Hepatomegaly. 5. There is a 5 cm simple appearing cystic lesion identified in the left ovary. This is an abnormal f inding in this age group, and nonemergent/outpatient gynecology assessment and pelvic ultrasound are recommended for further assessment. 6. Additional findings as above. ACT 112: Negative or not required by law. Electronically signed by: Ki Edmond M.D. 02/05/2020 2:45 PM
[2020-02-06] MEDS: HEPARIN SODIUM/DEXTROSE 25,000 UNITS/500 ML BAG IV SCH ×2 (01:33→04:14)
[2020-02-06 07:33] LABS: Basophils # (auto) 0.02 K/uL (0-0.2); Basophils % (auto) 0.3 %; Eosinophils % (auto) 1.3 %; Hematocrit (blood only) 37.7 % (37-47); Hemoglobin 12.1 g/dL (12.0-16.0); Immature Granulocytes # (auto) 0.02 K/uL (0.00-0.02); Immature Granulocytes % (auto) 0.3 %; Lymphocytes # (auto) 1.51 K/uL (1.2-3.4); Lymphocytes % (auto) 19.3 %; Mean Corpuscular Hemoglobin 30.5 pg (25-34); Mean Corpuscular Hgb Conc 32.1 g/dL (32-36); Mean Platelet Volume 11.5 fL (7.4-10.4); Monocytes # (auto) 0.72 K/uL (0.11-0.59); Monocytes % (auto) 9.2 %; Neutrophils # (auto) 5.47 K/uL (1.4-6.5); Neutrophils % (auto) 69.6 %; Platelet Count 254 K/uL (130-400); RDW Standard Deviation 50.7 fL (36.4-46.3); Red Blood Count 3.97 M/uL (4.2-5.4); White Blood Count 7.84 K/uL (4.8-10.8)
[2020-02-06 07:53] LABS: Partial Thromboplastin Ratio 2.2
[2020-02-06 08:01] LABS: Partial Thromboplastin Time 62.3 Seconds (21.0-31.0)
[2020-02-06 08:08] LABS: Albumin Level 3.4 gm/dl (3.4-5.0); BUN Creatinine Ratio 24.9 (10-20); Calcium 9.4 mg/dl (8.5-10.1); Creatinine Clr Calc Pharmacy 60.6 ml/min; Est GFR (Non-African American) 53.5; Magnesium 1.9 mg/dl (1.8-2.4); Potassium 3.5 mmol/L (3.5-5.1)
[2020-02-06 08:18] LABS: Albumin Globulin Ratio 0.9 (0.9-2); Bilirubin,Total 0.7 mg/dl (0.2-1); Globulin 3.7 gm/dl (2.5-4.0); Phosphorus 4.9 mg/dl (2.5-4.9); Total Protein 7.1 gm/dl (6.4-8.2)
[2020-02-06] MEDS: METOPROLOL SUCC 50MG EXT REL TAB PO SCH ×3 (08:30→20:27)
[2020-02-06] MEDS: FLUTICASONE PROPIONATE NA SPR 16 GM BTL SCH (08:30)
[2020-02-06] MEDS: ASPIRIN 81 MG ECTAB PO SCH (08:30)
[2020-02-06] MEDS: FUROSEMIDE 40 MG in SYRINGE 0 ML IV SCH ×2 (08:31→14:06)
[2020-02-06] MEDS: CYANOCOBALAMIN 500 MCG TABLET (VITAMIN B-12) PO SCH (08:31)
[2020-02-06] MEDS: DOCUSATE SODIUM 100 MG CAP PO SCH ×2 (08:31→20:27)
[2020-02-06] MEDS: TAMSULOSIN HCL 0.4 MG CAP PO SCH (08:31)
[2020-02-06] MEDS: AMLODIPINE BESYLATE 5 MG TAB PO SCH (08:31)
[2020-02-06] MEDS: SENNA 8.6 MG TAB PO SCH (08:31)
[2020-02-06] MEDS: INSULIN ASPART 100 UNITS/ML 3 ML PEN SC SCH ×4 (08:33→20:25)
--- NOTE | 2020-02-06 09:27 | Hospitalist Progress Note ---
Date of Service February 06, 2020 Assessment & Plan (1) Atrial fibrillation with rapid ventricular response: -as per ED notes on 02/04/2020: 74-year-old female patient who presents to the emergency department complaining of pelvic abdominal pain. On physical exam, the patient has significant tachycardia. EKG reveals A. fib with RVR -as per admitting hospitalist: Her echo done in last month at [facility] showed EF of 45-50%. patient was also initiated on IV heparin drip -possible cardioversion procedure by cardiology service on 02/07/2020 (2) Acute systolic (congestive) heart failure: -history as above -echocardiogram performed at [facility] on 02/04/2020 with Ejection fraction of 25 to 30% and severe global hypokinesis -beta manjeet as above -on diuresis with Lasix -cardiology consult on 02/04/2020 recommended to carvedilol in favor of metoprolol to improve rate control. -as per cardiology consult 02/05/2020: increase furosemide to 40 mg 3 times daily, Discontinue metoprolol tartrate switch to metoprolol succinate 50 mg 3 times daily, Increase lisinopril to 2.5 mg twice daily, consider reduction in amlodipine (3) Elevated troponin I level: -troponin levels around 0.1 on this admission (4) Abdominal pain: Left ovarian cyst hepatomegaly constipation -unclear whether her abdominal pain was reflective of underlying atrial fib rillation with RVR -she does report of history of kidney stones months ago, on flomax -CT abdomen 02/05/20 There is a 5 cm simple appearing cystic lesion identified in the left ovary. This is an abnormal finding in this age group, and nonemergent/outpatient gynecology assessment and pelvic ultrasound are recommended for further assessment; No acute infectious or inflammatory findings are identified in the abdomen or pelvis. there is Cardiomegaly and pleural effusions. There is Hepatomegaly -during this time while patient is being acutely optimize for cardiac issues, there is no emergent role for further gynecological workup right now. -on bowel regimen for constipation, she has repeatedly declined enema -send hepatitis panel in regards to hepatomegaly (5) Hypertension: -continue amlodipine and lisinopril -beta blockers as above, IV Lasix (6) Morbidly obese: morbid obesity with BMI of 39.8 -patient may benefit with sleep study as outpatient Type 2 diabetes mellitus without usp current use of insulin -Hold metformin, placed on insulin sliding scale. -HbA1c 6.9 Anxiety: History of primary insomnia -On temazepam p.r.n. -On alprazolam p.r.n. History of stroke in the past -On aspirin -currently on IV heparin for cardiac indications Admission and Anticipated Discharge Date Admission Date: February 04, 2020 Subjective -possible cardioversion procedure by cardiology service on 02/07/2020 patient continues to be on heparin IV, continues to be in atrial fibrillation with RVR. not in distress. breathes comfortably. denies abdominal pain today. no vomiting. no dizziness. no lightheadedness. no headache Review of Systems Review of Systems: All systems reviewed & are unremarkable except as noted in Subjective Physical Exam Constitutional: + obese and cooperative Eyes: PERRL, conjunctivae normal, anicteric sclerae EOM intact bilaterally ENMT: external ear and nose normal, oropharynx normal Neck: normal visual inspection Respiratory: normal respiratory effort, lungs clear to auscultation Cardiovascular: Rate/Rhythm: + tachycardic and + irregularly irregular Gastrointestinal (Abdomen): normal bowel sounds, soft, nontender, no hepatosplenomegaly Musculoskeletal: Head/Neck/Chest: normocephalic and head atraumatic Neurologic: PERRL, EOMI, accommodation nl, no face palsy, no dysarthria CN's II-XI intact bilaterally Psychiatric: A+Ox3, euthymic affect Results & Data Results & Data ([facility]) Vital Signs (Past 12 Hours) Vital Signs Temp Pulse Pulse Resp BP BP Pulse Ox 02/06/20 08:28 36.4 C L 111 H 18 134/87 94 02/06/20 03:56 36.3 C L 115 H 20 136/89 92 02/05/20 23:51 118 H 02/05/20 23:21 36.5 C 96 H 20 162/83 H 92 (1) Abdominal pain Abdominal location: lower abdomen, unspecified Qualified Code(s): R10.30 - Lower abdominal pain, unspecified
[2020-02-06] MEDS: POLYETHYLENE (MIRALAX) 17 GM PACK PO SCH ×2 (12:33→23:28)
--- NOTE | 2020-02-06 13:07 | Electrocardiogram Report ---
Test Reason : Blood Pressure : / mmHG Vent. Rate : 140 BPM Atrial Rate : 170 BPM P-R Int : 000 ms QRS Dur : 110 ms QT Int : 320 ms P-R-T Axes : 000 070 135 degrees QTc Int : 488 ms Atrial fibrillation with rapid ventricular response Abnormal ECG When compared with ECG of 05-FEB-2020 06:38, pvc's are no longer present Confirmed by Levi White ([id number]) on 02/06/2020 1:07:01 PM Referred By: REFERRED SELF Confirmed By:Levi White
--- NOTE | 2020-02-06 13:20 | Cardiology Progress Note ---
Date of Service February 06, 2020 Assessment & Plan (1) Atrial fibrillation with rapid ventricular response: (2) Acute systolic (congestive) heart failure: (3) Dilated cardiomyopathy: (4) Elevated troponin I level: Plan: Upward titration of medical therapies. Increase Toprol-XL to 100 mg twice per day Hold IV furosemide after second dose today Supplement potassium Hold amlodipine. If blood pressure increases 1 dissipate increasing lisinopril, possibly add spironolactone We will keep n.p.o. after midnight for possible diagnostic coronary angiography given diffuse cardiomyopathy, elevated troponin Subjective Patient was seen and examined, chart, medications, telemetry reviewed. Patient sitting out of bed in chair without acute complaints. Less dyspneic Very brisk diuresis overnight and continuing. Physical Exam Constitutional: + morbidly obese; no acute distress Eyes: PERRL, conjunctivae normal, anicteric sclerae ENMT: external ear and nose normal, oropharynx normal Neck: + thick neck Respiratory: Auscultation: + diminished lung sounds Cardiovascular: Rate/Rhythm: + tachycardic and + irregularly irregular Extremities: + edema (1-2+) Musculoskeletal: no cyanosis or clubbing, extremities motor strength 5/5 Results & Data Vital Signs (Past 12 Hours) Vital Signs Temp Pulse Resp BP BP Pulse Ox 02/06/20 12:21 36.5 C 123 H 20 113/82 93 02/06/20 08:28 36.4 C L 111 H 18 134/87 94 02/06/20 03:56 36.3 C L 115 H 20 136/89 92 Laboratory Results Laboratory Results - last 24 hr 02/05/20 02/05/20 02/06/20 16:28 20:13 06:34 WBC RBC Hgb Hct MCV MCH MCHC RDW Std Deviation RDW Coeff of Moises Plt Count MPV Immature Gran % (Auto) Neut % (Auto) Lymph % (Auto) [place] % (Auto) Eos % (Auto) Baso % (Auto) Neut # (Auto) Lymph # (Auto) [place] # (Auto) Eos # (Auto) Baso # (Auto) Immature Gran # (Auto) APTT PTT Ratio Sodium 138 Potassium 3.5 Chloride 98 Carbon Dioxide 32 Anion Gap 7.0 BUN 26 H Creatinine 1.03 Est Cr Clr Drug Dosing 60.6 Est GFR ( Amer) 62.0 Est GFR (Non-Af Amer) 53.5 BUN/Creatinine Ratio 24.9 H Glucose 144 H POC Glucose 138 H 146 H Calcium 9.4 Phosphorus 4.9 Magnesium 1.9 Total Bilirubin 0.7 AST 10 L ALT 31 Alkaline Phosphatase 84 Total Protein 7.1 Albumin 3.4 Globulin 3.7 Albumin/Globulin Ratio 0.9 02/06/20 02/06/20 02/06/20 06:34 06:34 07:16 WBC 7.84 RBC 3.97 L Hgb 12.1 Hct 37.7 MCV 95.0 MCH 30.5 MCHC 32.1 RDW Std Deviation 50.7 H RDW Coeff of Moises 15.0 H Plt Count 254 MPV 11.5 H Immature Gran % (Auto) 0.3 Neut % (Auto) 69.6 Lymph % (Auto) 19.3 [place] % (Auto) 9.2 Eos % (Auto) 1.3 Baso % (Auto) 0.3 Neut # (Auto) 5.47 Lymph # (Auto) 1.51 [place] # (Auto) 0.72 H Eos # (Auto) 0.10 Baso # (Auto) 0.02 Immature Gran # (Auto) 0.02 APTT 62.3 H* PTT Ratio 2.2 Sodium Potassium Chloride Carbon Dioxide Anion Gap BUN Creatinine Est Cr Clr Drug Dosing Est GFR ( Amer) Est GFR (Non-Af Amer) BUN/Creatinine Ratio Glucose POC Glucose 146 H Calcium Phosphorus Magnesium Total Bilirubin AST ALT Alkaline Phosphatase Total Protein Albumin Globulin Albumin/Globulin Ratio 02/06/20 11:23 WBC RBC Hgb Hct MCV MCH MCHC RDW Std Deviation RDW Coeff of Moises Plt Count MPV Immature Gran % (Auto) Neut % (Auto) Lymph % (Auto) [place] % (Auto) Eos % (Auto) Baso % (Auto) Neut # (Auto) Lymph # (Auto) [place] # (Auto) Eos # (Auto) Baso # (Auto) Immature Gran # (Auto) APTT PTT Ratio Sodium Potassium Chloride Carbon Dioxide Anion Gap BUN Creatinine Est Cr Clr Drug Dosing Est GFR ( Amer) Est GFR (Non-Af Amer) BUN/Creatinine Ratio Glucose POC Glucose 136 H Calcium Phosphorus Magnesium Total Bilirubin AST ALT Alkaline Phosphatase Total Protein Albumin Globulin Albumin/Globulin Ratio
[2020-02-06] MEDS ORDERED: POTASSIUM CHLORIDE 20 MEQ TABCR PO STA (13:31)
[2020-02-06] MEDS: ACETAMINOPHEN 325 MG TAB PO PRN ×2 (14:05→23:28)
[2020-02-06] MEDS: METOPROLOL TARTRATE 1 MG/ML VIAL IV PRN (17:03)
[2020-02-06] MEDS: TEMAZEPAM 7.5 MG CAPSULE PO PRN (20:25)
[2020-02-07] MEDS: HEPARIN SODIUM/DEXTROSE 25,000 UNITS/500 ML BAG IV SCH ×3 (01:23→18:29)
[2020-02-07 07:19] LABS: Basophils # (auto) 0.01 K/uL (0-0.2); Basophils % (auto) 0.1 %; Eosinophils # (auto) 0.14 K/uL (0-0.5); Eosinophils % (auto) 1.9 %; Hematocrit (blood only) 36.1 % (37-47); Hemoglobin 11.8 g/dL (12.0-16.0); Immature Granulocytes # (auto) 0.01 K/uL (0.00-0.02); Immature Granulocytes % (auto) 0.1 %; Lymphocytes # (auto) 1.78 K/uL (1.2-3.4); Lymphocytes % (auto) 23.8 %; Mean Corpuscular Hemoglobin 30.8 pg (25-34); Mean Corpuscular Hgb Conc 32.7 g/dL (32-36); Mean Corpuscular Volume 94.3 fL (80-100); Mean Platelet Volume 11.1 fL (7.4-10.4); Monocytes # (auto) 0.78 K/uL (0.11-0.59); Monocytes % (auto) 10.4 %; Neutrophils # (auto) 4.75 K/uL (1.4-6.5); Neutrophils % (auto) 63.7 %; Platelet Count 233 K/uL (130-400); RDW Coefficient of Variation 15.4 % (11.5-14.5); RDW Standard Deviation 51.4 fL (36.4-46.3); Red Blood Count 3.83 M/uL (4.2-5.4); White Blood Count 7.47 K/uL (4.8-10.8)
[2020-02-07] MEDS: TAMSULOSIN HCL 0.4 MG CAP PO SCH (07:27)
[2020-02-07] MEDS: CYANOCOBALAMIN 500 MCG TABLET (VITAMIN B-12) PO SCH (07:28)
[2020-02-07] MEDS: SENNA 8.6 MG TAB PO SCH (07:28)
[2020-02-07] MEDS: METOPROLOL SUCC 50MG EXT REL TAB PO SCH ×2 (07:28→20:34)
[2020-02-07] MEDS: FLUTICASONE PROPIONATE NA SPR 16 GM BTL SCH (07:29)
[2020-02-07] MEDS: ASPIRIN 81 MG ECTAB PO SCH (07:34)
[2020-02-07] MEDS: DOCUSATE SODIUM 100 MG CAP PO SCH ×2 (07:34→20:34)
[2020-02-07 07:40] LABS: Partial Thromboplastin Ratio 2.4
[2020-02-07] MEDS: INSULIN ASPART 100 UNITS/ML 3 ML PEN SC SCH ×4 (07:41→21:36)
[2020-02-07 07:43] LABS: Partial Thromboplastin Time 67.5 Seconds (21.0-31.0)
[2020-02-07 07:53] LABS: Albumin Level 3.1 gm/dl (3.4-5.0); Calcium 8.9 mg/dl (8.5-10.1); Creatinine Clr Calc Pharmacy 47.8 ml/min; Est GFR (African American) 47.2; Est GFR (Non-African American) 40.8; Magnesium 1.9 mg/dl (1.8-2.4); Potassium 4.3 mmol/L (3.5-5.1)
[2020-02-07 07:54] LABS: Albumin Globulin Ratio 0.8 (0.9-2); Bilirubin,Total 0.9 mg/dl (0.2-1); Globulin 3.8 gm/dl (2.5-4.0); Phosphorus 4.3 mg/dl (2.5-4.9); Total Protein 6.9 gm/dl (6.4-8.2)
--- NOTE | 2020-02-07 08:48 | Hospitalist Progress Note ---
Date of Service February 07, 2020 Assessment & Plan (1) Atrial fibrillation with rapid ventricular response: -as per ED notes on 02/04/2020: 74-year-old female patient who presents to the emergency department complaining of pelvic abdominal pain. On physical exam, the patient has significant tachycardia. EKG reveals A. fib with RVR -as per admitting hospitalist: Her echo done in last month at [facility] showed EF of 45-50%. patient was also initiated on IV heparin drip, currently on IV heparin drip -possible cardioversion procedure by cardiology service on 02/07/2020 (2) Acute systolic (congestive) heart failure: -history as above -echocardiogram performed at [facility] on 02/04/2020 with Ejection fraction of 25 to 30% and severe global hypokinesis -cardiology consult on 02/04/2020 recommended to carvedilol in favor of metoprolol to improve rate control. -as per cardiology consult 02/05/2020 have modified Lasix IV and metoprolol and lisinopril increase furosemide to 40 mg 3 times daily, and held the amlodipine -as of 02/07/2020: Lasix held at this time by cardiology, awaiting possible cardioversion procedure (3) Elevated troponin I level: -troponin levels around 0.1 on this admission (4) Abdominal pain: Left ovarian cyst hepatomegaly constipation -unclear whether her abdominal pain was reflective of underlying atrial fibri llation with RVR -she does report of history of kidney stones months ago, on flomax -CT abdomen 02/05/20 There is a 5 cm simple appearing cystic lesion identified in the left ovary. This is an abnormal finding in this age group, and nonemergent/outpatient gynecology assessment and pelvic ultrasound are recommended for further assessment; No acute infectious or inflammatory findings are identified in the abdomen or pelvis. there is Cardiomegaly and pleural effusions. There is Hepatomegaly -during this time while patient is being acutely optimize for cardiac issues, there is no emergent role for further gynecological workup right now. 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 -HbA1c 6.9 Anxiety: History of primary insomnia -On temazepam p.r.n. -On alprazolam p.r.n. History of stroke in the past -On aspirin -currently on IV heparin for cardiac indications Admission and Anticipated Discharge Date Admission Date: February 04, 2020 Subjective Patient seen and examined this AM. on IV heparin drip. no chest pain and not feeling palpitations. continues to have atrial fibrillation with RVR. she is comfortable. no abdomen pain today. no nausea. today patient NPO and awaiting for cardiology to determine of cardioversion should be done today Review of Systems Review of Systems: All systems reviewed & are unremarkable except as noted in Subjective Physical Exam Constitutional: + obese and cooperative Eyes: PERRL, conjunctivae normal, anicteric sclerae EOM intact bilaterally ENMT: external ear and nose normal, oropharynx normal Neck: normal visual inspection Respiratory: normal respiratory effort, lungs clear to auscultation Cardiovascular: Rate/Rhythm: + tachycardic and + irregularly irregular Gastrointestinal (Abdomen): normal bowel sounds, soft, nontender, no hepatosplenomegaly Musculoskeletal: Head/Neck/Chest: normocephalic and head atraumatic Neurologic: PERRL, EOMI, accommodation nl, no face palsy, no dysarthria CN's II-XI intact bilaterally Psychiatric: A+Ox3, euthymic affect Results & Data Results & Data ([facility]) Vital Signs (Past 12 Hours) Vital Signs Temp Pulse Pulse Resp BP BP Pulse Ox 02/07/20 07:54 36.5 C 99 H 18 124/63 96 02/07/20 03:12 36.3 C L 98 H 16 117/64 92 02/06/20 23:24 107 H 02/06/20 23:05 36.5 C 99 H 20 101/66 94 (1) Abdominal pain Abdominal location: lower abdomen, unspecified Qualified Code(s): R10.30 - Lower abdominal pain, unspecified
[2020-02-07 09:11] LABS: Hepatitis B Surface Antigen Neg (Neg)
[2020-02-07 09:40] LABS: Hepatitis C IgG 13Yrs+Old_Rflx Neg (Neg)
--- NOTE | 2020-02-07 11:16 | Cardiology Progress Note ---
Date of Service February 07, 2020 Assessment & Plan (1) Atrial fibrillation with rapid ventricular response: (2) Acute systolic (congestive) heart failure: (3) Dilated cardiomyopathy: (4) Elevated troponin I level: Plan: Patient clinically improved heart rate improving. Blood pressure contr olled with patient responding to medical therapies Plan coronary angiography today given diffuse cardiomyopathy Procedure and risks explained in detail to the patient informed consent obtained Subjective Patient was seen and examined, chart, medications, telemetry reviewed. Patient sitting out of bed in chair without acute complaints. Less dyspneic, clinically improved. Weight down 5 kg from admission Heart rates come under better control Physical Exam Constitutional: + morbidly obese; no acute distress Eyes: PERRL, conjunctivae normal, anicteric sclerae ENMT: external ear and nose normal, oropharynx normal Neck: + thick neck Respiratory: Auscultation: + diminished lung sounds Cardiovascular: Rate/Rhythm: + irregularly irregular Heart Sounds: normal S1 and normal S2; no murmur Vessels: no JVD Extremities: + edema (1+) Gastrointestinal (Abdomen): Percussion/Palpation: abdomen soft; abdomen nontender Large panniculus Musculoskeletal: no cyanosis or clubbing, extremities motor strength 5/5 Results & Data Vital Signs (Past 12 Hours) Vital Signs Temp Pulse Pulse Resp BP Pulse Ox 02/07/20 10:00 108 H 02/07/20 07:54 36.5 C 99 H 18 124/63 96 02/07/20 03:12 36.3 C L 98 H 16 117/64 92 02/06/20 23:24 107 H Laboratory Results Laboratory Results - last 24 hr 02/06/20 02/06/20 02/06/20 11:23 16:33 19:55 WBC RBC Hgb Hct MCV MCH MCHC RDW Std Deviation RDW Coeff of Moises Plt Count MPV Immature Gran % (Auto) Neut % (Auto) Lymph % (Auto) [place] % (Auto) Eos % (Auto) Baso % (Auto) Neut # (Auto) Lymph # (Auto) [place] # (Auto) Eos # (Auto) Baso # (Auto) Immature Gran # (Auto) APTT PTT Ratio Sodium Potassium Chloride Carbon Dioxide Anion Gap BUN Creatinine Est Cr Clr Drug Dosing Est GFR ( Amer) Est GFR (Non-Af Amer) BUN/Creatinine Ratio Glucose POC Glucose 136 H 141 H 192 H Calcium Phosphorus Magnesium Total Bilirubin AST ALT Alkaline Phosphatase Total Protein Albumin Globulin Albumin/Globulin Ratio Hepatitis A IgM Ab Hep Bs Antigen Hep B Core IgM Ab Hepatitis C Antibody Blood Type Antibody Screen 02/07/20 02/07/20 02/07/20 07:03 07:03 07:03 WBC RBC Hgb Hct MCV MCH MCHC RDW Std Deviation RDW Coeff of Moises Plt Count MPV Immature Gran % (Auto) Neut % (Auto) Lymph % (Auto) [place] % (Auto) Eos % (Auto) Baso % (Auto) Neut # (Auto) Lymph # (Auto) [place] # (Auto) Eos # (Auto) Baso # (Auto) Immature Gran # (Auto) APTT PTT Ratio Sodium Potassium Chloride Carbon Dioxide Anion Gap BUN Creatinine Est Cr Clr Drug Dosing Est GFR ( Amer) Est GFR (Non-Af Amer) BUN/Creatinine Ratio Glucose POC Glucose Calcium Phosphorus Magnesium Total Bilirubin AST ALT Alkaline Phosphatase Total Protein Albumin Globulin Albumin/Globulin Ratio Hepatitis A IgM Ab Pending Hep Bs Antigen Neg Hep B Core IgM Ab Pending Hepatitis C Antibody Neg Blood Type A Positive Antibody Screen NEGATIVE 02/07/20 02/07/20 02/07/20 07:03 07:03 07:03 WBC 7.47 RBC 3.83 L Hgb 11.8 L Hct 36.1 L MCV 94.3 MCH 30.8 MCHC 32.7 RDW Std Deviation 51.4 H RDW Coeff of Moises 15.4 H Plt Count 233 MPV 11.1 H Immature Gran % (Auto) 0.1 Neut % (Auto) 63.7 Lymph % (Auto) 23.8 [place] % (Auto) 10.4 Eos % (Auto) 1.9 Baso % (Auto) 0.1 Neut # (Auto) 4.75 Lymph # (Auto) 1.78 [place] # (Auto) 0.78 H Eos # (Auto) 0.14 Baso # (Auto) 0.01 Immature Gran # (Auto) 0.01 APTT 67.5 H* PTT Ratio 2.4 Sodium 140 Potassium 4.3 D Chloride 100 Carbon Dioxide 33 H Anion Gap 7.0 BUN 30 H Creatinine 1.29 H Est Cr Clr Drug Dosing 47.8 Est GFR ( Amer) 47.2 Est GFR (Non-Af Amer) 40.8 BUN/Creatinine Ratio 23.0 H Glucose 152 H POC Glucose Calcium 8.9 Phosphorus 4.3 Magnesium 1.9 Total Bilirubin 0.9 AST 8 L ALT 27 Alkaline Phosphatase 78 Total Protein 6.9 Albumin 3.1 L Globulin 3.8 Albumin/Globulin Ratio 0.8 L Hepatitis A IgM Ab Hep Bs Antigen Hep B Core IgM Ab Hepatitis C Antibody Blood Type Antibody Screen 02/07/20 02/07/20 07:08 11:05 WBC RBC Hgb Hct MCV MCH MCHC RDW Std Deviation RDW Coeff of Moises Plt Count MPV Immature Gran % (Auto) Neut % (Auto) Lymph % (Auto) [place] % (Auto) Eos % (Auto) Baso % (Auto) Neut # (Auto) Lymph # (Auto) [place] # (Auto) Eos # (Auto) Baso # (Auto) Immature Gran # (Auto) APTT PTT Ratio Sodium Potassium Chloride Carbon Dioxide Anion Gap BUN Creatinine Est Cr Clr Drug Dosing Est GFR ( Amer) Est GFR (Non-Af Amer) BUN/Creatinine Ratio Glucose POC Glucose 167 H 164 H Calcium Phosphorus Magnesium Total Bilirubin AST ALT Alkaline Phosphatase Total Protein Albumin Globulin Albumin/Globulin Ratio Hepatitis A IgM Ab Hep Bs Antigen Hep B Core IgM Ab Hepatitis C Antibody Blood Type Antibody Screen
[2020-02-07] MEDS: POLYETHYLENE (MIRALAX) 17 GM PACK PO SCH (12:02)
--- NOTE | 2020-02-07 13:21 | Pre Anesthesia Assessment ---
Date of Service February 07, 2020 Pre Sedation Assessment Vital Signs Temp Pulse Pulse Resp BP BP BP 02/07/20 13:14 121 H 18 148/79 H 02/07/20 10:00 108 H 02/07/20 07:54 36.5 C 99 H 18 124/63 02/07/20 03:12 36.3 C L 98 H 16 117/64 02/06/20 23:24 107 H 02/06/20 23:05 36.5 C 99 H 20 101/66 02/06/20 19:06 36.7 C 110 H 18 109/79 02/06/20 18:00 121 H 101/63 02/06/20 17:03 135 H 110/69 02/06/20 17:02 135 H 110/69 02/06/20 15:32 36.7 C 104 H 18 114/77 Pulse Ox 02/07/20 13:14 94 02/07/20 10:00 02/07/20 07:54 96 02/07/20 03:12 92 02/06/20 23:24 02/06/20 23:05 94 02/06/20 19:06 95 02/06/20 18:00 02/06/20 17:03 02/06/20 17:02 02/06/20 15:32 95 Cardiovascular + irregularly irregular Respiratory normal respiratory effort, lungs clear to auscultation Pre-Sedation Airway Assessment Smoking Status: Never smoker Short, Thick Neck: No Thyromental Distance: > or= 3.5 Finger Breadths Oral Cavity: + Dentures Mallampati Class: III ASA: ASA3 NPO Status Date of Last Intake of Fluids: 02/06/20 Date of Last Intake of Solid Food: 02/06/20 Procedure Planning Contraindications for Sedation: none Current Medications Reviewed: Yes Notes The planned sedation has been discussed with the patient. Informed Consent was obtained. I have identified the patient, determined the appropriateness of sedation and have assessed the patient immediately prior to the procedure. All medicine(s) and interventions are by my order.
[2020-02-07] MEDS ORDERED: HEPARIN (PORCINE) 1000 UNIT/ML 10 ML (CATH LAB USE ONLY) ONE (13:33)
[2020-02-07] MEDS ORDERED: NiCARDipine HCL INJ 2.5 MG/ML 10 ML AMP ONE (13:33)
[2020-02-07] MEDS ORDERED: fentaNYL citrate 100 MCG/2 ML VIAL ONE (13:33)
[2020-02-07] MEDS ORDERED: NITROGLYCERIN/D5W 100MCG/ML 20ML SYR ONE (13:34)
[2020-02-07] MEDS ORDERED: MIDAZOLAM HCL 1 MG/ML 2ML VIAL ONE (13:34)
--- NOTE | 2020-02-07 14:33 | Cardiac Catheterization ---
Cardiac Cath Procedure Brief Procedure Date February 07, 2020 Pre-Procedure Diagnosis Pre-Procedure Diagnosis: CHF and Cardiomyopathy AUC Score AUC Score: 8 Post-Procedure Diagnosis Post-Procedure Diagnosis: Normal Coronary Arteries Procedure(s) Performed Procedure(s) Performed: Coronary Angiography and Left Heart Cath Project Drilling Engineer Tye Oh MD Estimated Blood Loss Estimated Blood Loss: <15cc Medication(s) Medication(s): Fentanyl (25 mcg IV), Heparin (2000 units IV), Lidocaine 1% (Local infiltration access site), Nicardipine (250 mcg intra-arterial after arterial sheath insertion) and Versed (1 mg IV) Preliminary Findings Normal right dominant coronary anatomy without obstruction Left main: Long of modest caliber, bifurcating without disease Left anterior descending: Type II vessel with tortuous anatomy giving rise to a large septal branch and 2 diagonal branches in its midportion. There is no disease in the left and descending Left circumflex: Moderately large vessel giving rise to a trivial high marginal branch and a large bifurcating obtuse marginal there is no disease in left circumflex Right coronary artery: Moderate caliber but very large in distribution giving rise to a conus branch and 2 large right ventricular branches in its proximal and mid third. It then courses to give rise to a small posterior descending artery and a large long terminal posterior ventricular branch reaching well to the apex. There is no disease in the right coronary artery LV angiography: Not performed, left ventricle dilated on fluoroscopy LVEDP 23 Recommendations Recommendations: Medical Therapy and/or Counseling Specimens Specimens: None Fluids (cc crystalloids) Fluids (cc crystalloids): 82 Anesthesia Start: 1348, stop 1417 Procedural Complication(s) None Disposition PCU
--- NOTE | 2020-02-07 14:39 | Cardiac Catheterization ---
Cardiac Cath Procedure Full Procedure Date February 07, 2020 Pre-Procedure Diagnosis Pre-Procedure Diagnosis: CHF and Cardiomyopathy AUC Score AUC Score: 8 Post-Procedure Diagnosis Post-Procedure Diagnosis: Normal Coronary Arteries Procedure(s) Performed Procedure(s) Performed: Coronary Angiography and Left Heart Cath Car Deliverer Tye Oh MD Estimated Blood Loss Estimated Blood Loss: <15cc Medication(s) Medication(s): Fentanyl (25 mcg IV), Heparin (2000 units IV), Lidocaine 1% (Local infiltration access site), Nicardipine (250 mcg intra-arterial after arterial sheath insertion) and Versed (1 mg IV) Summary of Findings Normal right dominant coronary anatomy without obstruction Left main: Long of modest caliber, bifurcating without disease Left anterior descending: Type II vessel with tortuous anatomy giving rise to a large septal branch and 2 diagonal branches in its midportion. There is no disease in the left and descending Left circumflex: Moderately large vessel giving rise to a trivial high marginal branch and a large bifurcating obtuse marginal there is no disease in left circumflex Right coronary artery: Moderate caliber but very large in distribution giving rise to a conus branch and 2 large right ventricular branches in its proximal and mid third. It then courses to give rise to a small posterior descending a rtery and a large long terminal posterior ventricular branch reaching well to the apex. There is no disease in the right coronary artery LV angiography: Not performed, left ventricle dilated on fluoroscopy LVEDP 23 Hemodynamics Rest Ao:: 139/82/102 Final Ao: 131/79/97 LV: 128/17/23 Recommendations Recommendations: Medical Therapy and/or Counseling Specimens Specimens: None Radiation Exposure (mGy) 761 Contrast (mls) 32 Fluids (cc crystalloids) Fluids (cc crystalloids): 82 Anesthesia Start: 1348, stop 1417 Procedural Complication(s) No complications. Right radial access gained use of ultrasonic guidance Disposition PCU I attest to the content of the Intraoperative Record and any orders documented therein. Any exceptions are noted below. 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 Cardiac Status Clinical evaluation leading to the procedure 74-year-old presented with atrial fibrillation with rapid response and dilated cardiomyopathy, decompensated congestive heart failure, elevated troponin CAD Presenation: No Sxs, No angina Anginal Classification: No Symptoms Heart Failure: NYHA Class: CCS IV Cardiogenic Shock within 24 Hours: No Cardiac Arrest within 24 Hours: No Imaging Studies Past 6 Months: Yes Stress Studies Past 6 Months: No Standard Exercise Test: No Stress Echocardiogram: No Stress Testing w/SPECT MPI: No Cardiac CTA: No Coronary Anatomy Dominant: Right Left Main (% Stenosis): Normal LAD (% Stenosis): Normal D2 (% Stenosis): Normal Circumflex (% Stenosis): Normal OM1 (% Stenosis): Normal OM2 (% Stenosis): Normal RCA (% Stenosis): Normal R PDA (% Stenosis): Normal R PL1 (% Stenosis): Normal Left Ventricular Angiography EF (%): N/A Diagnostic Physicians Name: Tye Oh MD Status: Urgent Closure Device Percutaneous Entry Location: Radial Closure Device: Radial Band Recommendations: Medical Therapy and/or Counseling
[2020-02-07] MEDS ORDERED: ACETAMINOPHEN 325 MG TAB PO PRN (14:41)
[2020-02-07] MEDS ORDERED: SODIUM CHLORIDE 0.9% 1000ML 1,000 ML IV SCH (14:45)
[2020-02-07] MEDS ORDERED: Nursing to Pharmacy Communication SCH (15:30)
[2020-02-07] MEDS ORDERED: DIGOXIN 0.25 MG TAB PO ONE (17:03)
--- NOTE | 2020-02-07 17:05 | Cardiology Progress Note ---
Date of Service February 07, 2020 Subjective Patient doing well post cardiac catheterization. Tolerated procedure well study demonstrated normal coronaries though with evidence of increased left ventricular end-diastolic pressures. Minimal contrast used less than 35 cc Plan IV heparin resumed with anticipation switch to Eliquis in a.m. No IV diuretics to see Continue current dosing of metoprolol Add digoxin single dose Likely increase DONNY inhibitor in a.m. depending on renal function Results & Data Vital Signs (Past 12 Hours) Vital Signs Temp Pulse Pulse Resp BP Pulse Ox 02/07/20 16:00 106 H 02/07/20 15:54 73 145/97 H 94 02/07/20 15:24 81 18 120/74 94 02/07/20 15:05 36.4 C L 96 H 20 131/91 93 02/07/20 14:45 88 18 122/89 94 02/07/20 14:30 94 H 18 109/75 94 02/07/20 13:14 121 H 18 148/79 H 94 02/07/20 10:00 108 H 02/07/20 07:54 36.5 C 99 H 18 124/63 96
[2020-02-07] MEDS: TEMAZEPAM 7.5 MG CAPSULE PO PRN (22:01)
[2020-02-08 00:04] LABS: Partial Thromboplastin Ratio 1.7
[2020-02-08 00:05] LABS: Partial Thromboplastin Time 48.7 Seconds (21.0-31.0)
[2020-02-08 06:10] LABS: Basophils # (auto) 0.02 K/uL (0-0.2); Basophils % (auto) 0.3 %; Eosinophils # (auto) 0.15 K/uL (0-0.5); Eosinophils % (auto) 2.4 %; Hematocrit (blood only) 35.6 % (37-47); Hemoglobin 11.7 g/dL (12.0-16.0); Lymphocytes # (auto) 1.36 K/uL (1.2-3.4); Lymphocytes % (auto) 21.4 %; Mean Corpuscular Hemoglobin 31.3 pg (25-34); Mean Corpuscular Hgb Conc 32.9 g/dL (32-36); Mean Corpuscular Volume 95.2 fL (80-100); Mean Platelet Volume 10.7 fL (7.4-10.4); Monocytes # (auto) 0.74 K/uL (0.11-0.59); Monocytes % (auto) 11.7 %; Neutrophils # (auto) 4.08 K/uL (1.4-6.5); Neutrophils % (auto) 64.2 %; Platelet Count 222 K/uL (130-400); RDW Coefficient of Variation 15.2 % (11.5-14.5); RDW Standard Deviation 51.6 fL (36.4-46.3); Red Blood Count 3.74 M/uL (4.2-5.4); White Blood Count 6.35 K/uL (4.8-10.8)
[2020-02-08 06:42] LABS: Albumin Level 2.9 gm/dl (3.4-5.0); BUN Creatinine Ratio 24.5 (10-20); Calcium 8.8 mg/dl (8.5-10.1); Creatinine Clr Calc Pharmacy 57.8 ml/min; Est GFR (African American) 59.2; Est GFR (Non-African American) 51.1; Magnesium 2.1 mg/dl (1.8-2.4); Potassium 4.2 mmol/L (3.5-5.1)
[2020-02-08 06:45] LABS: Albumin Globulin Ratio 0.8 (0.9-2); Bilirubin,Total 0.8 mg/dl (0.2-1); Globulin 3.7 gm/dl (2.5-4.0); Total Protein 6.6 gm/dl (6.4-8.2)
[2020-02-08] MEDS ORDERED: MAGNESIUM HYDROXIDE SUSP 30 ML UDC PO ONE (06:59)
[2020-02-08 07:40] LABS: Partial Thromboplastin Ratio 2.1
[2020-02-08 07:52] LABS: Partial Thromboplastin Time 57.2 Seconds (21.0-31.0)
[2020-02-08] MEDS: INSULIN ASPART 100 UNITS/ML 3 ML PEN SC SCH ×4 (07:54→22:12)
[2020-02-08] MEDS: METOPROLOL SUCC 50MG EXT REL TAB PO SCH ×2 (08:38→22:02)
[2020-02-08] MEDS: DOCUSATE SODIUM 100 MG CAP PO SCH ×2 (08:38→22:07)
[2020-02-08] MEDS: TAMSULOSIN HCL 0.4 MG CAP PO SCH (08:39)
[2020-02-08] MEDS: ASPIRIN 81 MG ECTAB PO SCH (08:39)
[2020-02-08] MEDS: SENNA 8.6 MG TAB PO SCH (08:39)
[2020-02-08] MEDS: FLUTICASONE PROPIONATE NA SPR 16 GM BTL SCH (08:40)
[2020-02-08] MEDS: CYANOCOBALAMIN 500 MCG TABLET (VITAMIN B-12) PO SCH (08:40)
[2020-02-08] MEDS: POLYETHYLENE (MIRALAX) 17 GM PACK PO SCH ×2 (12:06)
--- NOTE | 2020-02-08 12:55 | Hospitalist Progress Note ---
Date of Service February 08, 2020 Assessment & Plan (1) Atrial fibrillation with rapid ventricular response: -as per ED notes on 02/04/2020: 74-year-old female patient who presents to the emergency department complaining of pelvic abdominal pain. On physical exam, the patient has significant tachycardia. EKG reveals A. fib with RVR -as per admitting hospitalist: Her echo done in last month at [facility] showed EF of 45-50%; patient was also initiated on IV heparin drip on admission -after adjusting cardiac medications on this admission, she also got dose of digoxin on 02/07/2020, patient as of 02/08/2020 is better rate controlled while currently on metoprolol 100 mg BID. as per cardiology Dr. Oh, that further plans for management of atrial fibrillation is rate control and then to transition from IV heparin (2) Acute systolic (congestive) heart failure: Dilated cardiomyopathy -history as above -echocardiogram performed at [facility] on 02/04/2020 with Ejection fraction of 25 to 30% and severe global hypokinesis -patient had cardiac catheterization on 02/07/2020 and no evidence of acute coronary syndrome (3) Elevated troponin I level: -troponin levels around 0.1 on this admission likely reflective of RVR on admission (4) Abdominal pain: Left ovarian cyst hepatomegaly constipation -unclear whether her abdominal pain was reflective of underlying atrial fibrillation with RVR -she does report of history of kidney stones months ago, on flomax -CT abdomen 02/05/20 There is a 5 cm simple appearing cystic lesion identified in the left ovary. This is an abnormal finding in this age group, and nonemergent/outpatient gynecology assessment and pelvic ultrasound are recommended for further assessment; No acute infectious or inflammatory findings are identified in the abdomen or pelvis. there is Cardiomegaly and pleural effusions. There is Hepatomegaly -during this time while patient is being acutely optimize for cardiac issues, there is no emergent role for further gynecological workup right now. -on bowel regimen for constipation -send hepatitis panel on 02/07/2020 in regards to hepatomegaly, Hepatitis C negative, follow remaining lab panel -02/08/2020: to remove the tong and await trial of void (5) Hypertension: -continue lisinopril -beta blockers -amlodipine held by cardiology service (6) Morbidly obese: morbid obesity with BMI of 39.8 -patient may benefit with sleep study as outpatient -02/08/2020: Patient reports that she will never want physical rehabilitation placement or nursing facility after hospital stay but nursing reports she is 2 assist, will get PT/OT evaluations Type 2 diabetes mellitus without terminal worker current use of insulin -Hold metformin, placed on insulin sliding scale. -HbA1c 6.9 Anxiety: History of primary insomnia -On temazepam p.r.n. -On alprazolam p.r.n. History of stroke in the past -On aspirin -currently on IV heparin for cardiac indications Admission and Anticipated Discharge Date Admission Date: February 04, 2020 Subjective Patient on IV heparin. continues to be in atrial fibrillation but heart rates are controlled and under 100 bpm. she allows to have tong removed as she had cardiac catheterization on 02/07/2020. Patient reports that she will never want physical rehabilitation placement or nursing facility after hospital stay but nursing reports she is 2 assist, will get PT/OT evaluations Review of Systems Review of Systems: All systems reviewed & are unremarkable except as noted in Subjective Physical Exam Constitutional: + obese and cooperative Eyes: PERRL, conjunctivae normal, anicteric sclerae EOM intact bilaterally ENMT: external ear and nose normal, oropharynx normal Neck: normal visual inspection Respiratory: normal respiratory effort, lungs clear to auscultation Cardiovascular: Rate/Rhythm: regular rate and + irregularly irregular Gastrointestinal (Abdomen): normal bowel sounds, soft, nontender, no hepatosplenomegaly Musculoskeletal: Head/Neck/Chest: normocephalic and head atraumatic Neurologic: PERRL, EOMI, accommodation nl, no face palsy, no dysarthria CN's II-XI intact bilaterally Psychiatric: A+Ox3, euthymic affect Genitourinary: tong Results & Data Results & Data ([facility]) Vital Signs (Past 12 Hours) Vital Signs Temp Pulse Pulse Resp BP Pulse Ox 02/08/20 12:13 36.7 C 98 H 16 116/59 L 95 02/08/20 07:49 36.9 C 104 H 18 128/63 96 02/08/20 07:00 76 02/08/20 03:38 36.2 C L 109 H 20 124/82 97 (1) Abdominal pain Abdominal location: lower abdomen, unspecified Qualified Code(s): R10.30 - Lower abdominal pain, unspecified
[2020-02-08] MEDS ORDERED: ACETAMINOPHEN 325 MG TAB PO PRN (13:04)
--- NOTE | 2020-02-08 14:21 | Cardiology Progress Note ---
Date of Service February 08, 2020 Assessment & Plan (1) Atrial fibrillation with rapid ventricular response: (2) Acute systolic (congestive) heart failure: CHF instructions ordered We will resume oral furosemide in a.m. Consider addition of spironolactone post discharge (3) Dilated cardiomyopathy: Nonischemic, normal coronary angiography 02/07/2020 (4) Elevated troponin I level: Plan: Patient clinically responding to therapies. We will add low-dose digoxin 0.125 mg 3 days/week, continue Toprol-XL 100 mg twice per day. Amlodipine discontinued Continue increased dose lisinopril with room to titrate higher if blood pressure increases Patient with chads vas 2 score of at least 6 and prior history of stroke and warrants long-term anticoagulation. We will discontinue IV heparin begin apixaban this evening Subjective Patient seen and examined, chart, medications, telemetry reviewed Clinically improved lying flat comfortably. No worsening edema or shortness of breath heart rates better controlled. No fevers chills or. No bleeding issues Physical Exam Constitutional: + morbidly obese; no acute distress Eyes: PERRL, conjunctivae normal, anicteric sclerae ENMT: Mallampati Class: III Neck: + thick neck Respiratory: normal respiratory effort, lungs clear to auscultation Auscultation: + diminished lung sounds Cardiovascular: Rate/Rhythm: + irregularly irregular Heart Sounds: normal S1 and normal S2; no murmur Vessels: no JVD Extremities: + edema (1+) Gastrointestinal (Abdomen): Percussion/Palpation: abdomen soft; abdomen nontender Musculoskeletal: no cyanosis or clubbing, extremities motor strength 5/5 Results & Data Vital Signs (Past 12 Hours) Vital Signs Temp Pulse Pulse Resp BP Pulse Ox 02/08/20 12:13 36.7 C 98 H 16 116/59 L 95 02/08/20 07:49 36.9 C 104 H 18 128/63 96 02/08/20 07:00 76 02/08/20 03:38 36.2 C L 109 H 20 124/82 97 Laboratory Results Laboratory Results - last 24 hr 02/07/20 02/07/20 02/07/20 15:35 16:07 20:20 WBC RBC Hgb Hct MCV MCH MCHC RDW Std Deviation RDW Coeff of Moises Plt Count MPV Immature Gran % (Auto) Neut % (Auto) Lymph % (Auto) Garza % (Auto) Eos % (Auto) Baso % (Auto) Neut # (Auto) Lymph # (Auto) Garza # (Auto) Eos # (Auto) Baso # (Auto) Immature Gran # (Auto) APTT PTT Ratio Sodium Potassium Chloride Carbon Dioxide Anion Gap BUN Creatinine Est Cr Clr Drug Dosing Est GFR ( Amer) Est GFR (Non-Af Amer) BUN/Creatinine Ratio Glucose POC Glucose 138 H 126 H 146 H Calcium Magnesium Total Bilirubin AST ALT Alkaline Phosphatase Total Protein Albumin Globulin Albumin/Globulin Ratio 02/07/20 02/08/20 02/08/20 23:29 05:57 05:57 WBC 6.35 RBC 3.74 L Hgb 11.7 L Hct 35.6 L MCV 95.2 MCH 31.3 MCHC 32.9 RDW Std Deviation 51.6 H RDW Coeff of Moises 15.2 H Plt Count 222 MPV 10.7 H Immature Gran % (Auto) 0.0 Neut % (Auto) 64.2 Lymph % (Auto) 21.4 Garza % (Auto) 11.7 Eos % (Auto) 2.4 Baso % (Auto) 0.3 Neut # (Auto) 4.08 Lymph # (Auto) 1.36 Garza # (Auto) 0.74 H Eos # (Auto) 0.15 Baso # (Auto) 0.02 Immature Gran # (Auto) 0.00 APTT 48.7 H* PTT Ratio 1.7 Sodium 142 Potassium 4.2 Chloride 106 Carbon Dioxide 30 Anion Gap 6.0 BUN 26 H Creatinine 1.07 Est Cr Clr Drug Dosing 57.8 Est GFR ( Amer) 59.2 Est GFR (Non-Af Amer) 51.1 BUN/Creatinine Ratio 24.5 H Glucose 144 H POC Glucose Calcium 8.8 Magnesium 2.1 Total Bilirubin 0.8 AST 8 L ALT 24 Alkaline Phosphatase 75 Total Protein 6.6 Albumin 2.9 L Globulin 3.7 Albumin/Globulin Ratio 0.8 L 02/08/20 02/08/20 02/08/20 07:10 07:25 11:19 WBC RBC Hgb Hct MCV MCH MCHC RDW Std Deviation RDW Coeff of Moises Plt Count MPV Immature Gran % (Auto) Neut % (Auto) Lymph % (Auto) Garza % (Auto) Eos % (Auto) Baso % (Auto) Neut # (Auto) Lymph # (Auto) Garza # (Auto) Eos # (Auto) Baso # (Auto) Immature Gran # (Auto) APTT 57.2 H* PTT Ratio 2.1 Sodium Potassium Chloride Carbon Dioxide Anion Gap BUN Creatinine Est Cr Clr Drug Dosing Est GFR ( Amer) Est GFR (Non-Af Amer) BUN/Creatinine Ratio Glucose POC Glucose 190 H 168 H Calcium Magnesium Total Bilirubin AST ALT Alkaline Phosphatase Total Protein Albumin Globulin Albumin/Globulin Ratio
[2020-02-08 15:15] LABS: Hepatitis A Antibody IgM NON-REACTIVE (NON-REACTIVE); Hepatitis B Core Antibody IgM NON-REACTIVE (NON-REACTIVE)
[2020-02-08] MEDS: APIXABAN 5 MG TABLET PO SCH (16:54)
[2020-02-08] MEDS: HEPARIN SODIUM/DEXTROSE 25,000 UNITS/500 ML BAG IV SCH (17:01)
[2020-02-09] MEDS: POLYETHYLENE (MIRALAX) 17 GM PACK PO SCH ×2 (00:34→13:26)
[2020-02-09 07:19] LABS: Basophils # (auto) 0.01 K/uL (0-0.2); Basophils % (auto) 0.1 %; Eosinophils # (auto) 0.18 K/uL (0-0.5); Eosinophils % (auto) 2.5 %; Hematocrit (blood only) 35.8 % (37-47); Hemoglobin 11.2 g/dL (12.0-16.0); Immature Granulocytes # (auto) 0.01 K/uL (0.00-0.02); Immature Granulocytes % (auto) 0.1 %; Lymphocytes # (auto) 1.37 K/uL (1.2-3.4); Lymphocytes % (auto) 19.3 %; Mean Corpuscular Hemoglobin 29.9 pg (25-34); Mean Corpuscular Hgb Conc 31.3 g/dL (32-36); Mean Corpuscular Volume 95.5 fL (80-100); Mean Platelet Volume 10.8 fL (7.4-10.4); Monocytes # (auto) 0.66 K/uL (0.11-0.59); Monocytes % (auto) 9.3 %; Neutrophils # (auto) 4.87 K/uL (1.4-6.5); Neutrophils % (auto) 68.7 %; Platelet Count 245 K/uL (130-400); RDW Coefficient of Variation 15.3 % (11.5-14.5); RDW Standard Deviation 52.8 fL (36.4-46.3); Red Blood Count 3.75 M/uL (4.2-5.4)
[2020-02-09] MEDS: INSULIN ASPART 100 UNITS/ML 3 ML PEN SC SCH ×2 (07:50→11:55)
[2020-02-09 07:53] LABS: Albumin Level 2.9 gm/dl (3.4-5.0); BUN Creatinine Ratio 25.7 (10-20); Calcium 8.8 mg/dl (8.5-10.1); Est GFR (African American) 55.4; Est GFR (Non-African American) 47.8; Potassium 4.5 mmol/L (3.5-5.1)
[2020-02-09 07:56] LABS: Albumin Globulin Ratio 0.8 (0.9-2); Bilirubin,Total 0.5 mg/dl (0.2-1); Globulin 3.5 gm/dl (2.5-4.0); Total Protein 6.4 gm/dl (6.4-8.2)
[2020-02-09] MEDS: TAMSULOSIN HCL 0.4 MG CAP PO SCH (08:30)
[2020-02-09] MEDS: FLUTICASONE PROPIONATE NA SPR 16 GM BTL SCH (08:30)
[2020-02-09] MEDS: APIXABAN 5 MG TABLET PO SCH ×2 (08:31→16:21)
[2020-02-09] MEDS: CYANOCOBALAMIN 500 MCG TABLET (VITAMIN B-12) PO SCH (08:31)
[2020-02-09] MEDS: METOPROLOL SUCC 50MG EXT REL TAB PO SCH (08:32)
[2020-02-09] MEDS: SENNA 8.6 MG TAB PO SCH (08:32)
[2020-02-09] MEDS: ASPIRIN 81 MG ECTAB PO SCH (08:32)
[2020-02-09] MEDS: DOCUSATE SODIUM 100 MG CAP PO SCH (08:34)
[2020-02-09] MEDS ORDERED: FUROSEMIDE 20 MG TAB PO SCH ×2 (09:00→17:45)
--- NOTE | 2020-02-09 09:52 | Cardiology Progress Note ---
Date of Service February 09, 2020 Assessment & Plan (1) Atrial fibrillation with rapid ventricular response: Rates acceptably controlled. [id number] Score at least 6 points. Benefits of long-term anticoagulation appear greater than the right Continue Eliquis 5 mg twice a day. See below. (2) Acute systolic (congestive) heart failure: Compensated volume status. EF 25-30%. Narrow QRS duration. CHF instructions reviewed (3) Dilated cardiomyopathy: Nonischemic Suspect tachycardia induced. Normal coronary angiography on 02/07/2020 (4) Elevated troponin I level: RECOMMENDATIONS/PLAN Continue Toprol XL 100 mg twice a day and digoxin 0.125 mg on , , and Fridays for rate control Continue Eliquis anticoagulation 5 mg twice a day Consider referral for direct current cardioversion AFTER 4-6 weeks of proper anticoagulation There is room to increase lisinopril if needed for addition blood pressure control as an outpatient. Consider the addition of spironolactone post discharge Amlodipine discontinued. Avoid non-dihydropyridine calcium channel blockers given reduced EF. Outpatient Cardiology follow-up on 02/25/2020 at 3:00 PM, Joy mercer (lives in [place]) Supervising Physician Co-Signing Physician Notes Patient seen and examined, chart, medications, telemetry reviewed. Assessment and plan as well outlined above. Patient has responded to medical therapies well with good diuresis. Patient has diffuse nonischemic cardiomyopathy possibly tachycardia/arrhythmia induced. We will treat with medically with possible consideration for synchronized electrical cardioversion in 4 to 6 weeks Outpatient appointments arranged Subjective Patient seen and examined. Chart medications, telemetry reviewed Telemetry: Atrial fibrillation ranging from 80's to 160, primarily in the 90's, rare ventricular ectopics Clinically improved lying flat comfortably. No chest pain, palpitations, worsening shortness of breath, or increased. No orthopnea or PND. No fevers or chills. No bleeding issues Review of Systems Review of Systems: All systems reviewed & are unremarkable except as noted in HPI & below Physical Exam Physical Exam: General: A&Ox3. NAD. Elevated BMI HEENT: Normocephalic. Atraumatic. PER. Conjunctiva pink, sclera clear. Neck: No carotid bruits. No JVD. Heart: Irregularly irregular in the 90's. No murmur. No rub. No gallop. Lungs: Clear to auscultation. Abdomen: +BS. Soft. Nontender. No masses or organomegaly. Extremities: Lymphedematous changes. No overt edema. No clubbing. No cyanosis. Limited neurological examination is without focal deficits. Pulses: Right radial dressing with no new/acute ecchymosis or significant hematoma. Results & Data Vital Signs (Past 12 Hours) Vital Signs Temp Pulse Pulse Resp BP Pulse Ox 02/09/20 08:23 36.6 C 120 H 20 144/82 H 95 02/09/20 03:45 36.3 C L 113 H 18 134/80 93 02/09/20 00:14 36.3 C L 110 H 18 135/91 96 02/09/20 00:00 99 H Laboratory Results Laboratory Results - last 24 hr 02/07/20 02/08/20 02/08/20 07:03 11:19 16:04 WBC RBC Hgb Hct MCV MCH MCHC RDW Std Deviation RDW Coeff of Moises Plt Count MPV Immature Gran % (Auto) Neut % (Auto) Lymph % (Auto) Schleicher % (Auto) Eos % (Auto) Baso % (Auto) Neut # (Auto) Lymph # (Auto) Schleicher # (Auto) Eos # (Auto) Baso # (Auto) Immature Gran # (Auto) Sodium Potassium Chloride Carbon Dioxide Anion Gap BUN Creatinine Est Cr Clr Drug Dosing Est GFR ( Amer) Est GFR (Non-Af Amer) BUN/Creatinine Ratio Glucose POC Glucose 168 H 171 H Calcium Total Bilirubin AST ALT Alkaline Phosphatase Total Protein Albumin Globulin Albumin/Globulin Ratio Hepatitis A IgM Ab NON-REACTIVE Hep B Core IgM Ab NON-REACTIVE 02/08/20 02/08/20 02/09/20 21:10 22:09 06:52 WBC 7.10 RBC 3.75 L Hgb 11.2 L Hct 35.8 L MCV 95.5 MCH 29.9 MCHC 31.3 L RDW Std Deviation 52.8 H RDW Coeff of Moises 15.3 H Plt Count 245 MPV 10.8 H Immature Gran % (Auto) 0.1 Neut % (Auto) 68.7 Lymph % (Auto) 19.3 Schleicher % (Auto) 9.3 Eos % (Auto) 2.5 Baso % (Auto) 0.1 Neut # (Auto) 4.87 Lymph # (Auto) 1.37 Schleicher # (Auto) 0.66 H Eos # (Auto) 0.18 Baso # (Auto) 0.01 Immature Gran # (Auto) 0.01 Sodium Potassium Chloride Carbon Dioxide Anion Gap BUN Creatinine Est Cr Clr Drug Dosing Est GFR ( Amer) Est GFR (Non-Af Amer) BUN/Creatinine Ratio Glucose POC Glucose 157 H 235 H Calcium Total Bilirubin AST ALT Alkaline Phosphatase Total Protein Albumin Globulin Albumin/Globulin Ratio Hepatitis A IgM Ab Hep B Core IgM Ab 02/09/20 06:52 WBC RBC Hgb Hct MCV MCH MCHC RDW Std Deviation RDW Coeff of Moises Plt Count MPV Immature Gran % (Auto) Neut % (Auto) Lymph % (Auto) Schleicher % (Auto) Eos % (Auto) Baso % (Auto) Neut # (Auto) Lymph # (Auto) Schleicher # (Auto) Eos # (Auto) Baso # (Auto) Immature Gran # (Auto) Sodium 139 Potassium 4.5 Chloride 105 Carbon Dioxide 32 Anion Gap 2.0 L BUN 29 H Creatinine 1.13 Est Cr Clr Drug Dosing 55.0 Est GFR ( Amer) 55.4 Est GFR (Non-Af Amer) 47.8 BUN/Creatinine Ratio 25.7 H Glucose 119 H POC Glucose Calcium 8.8 Total Bilirubin 0.5 AST 12 L ALT 24 Alkaline Phosphatase 76 Total Protein 6.4 Albumin 2.9 L Globulin 3.5 Albumin/Globulin Ratio 0.8 L Hepatitis A IgM Ab Hep B Core IgM Ab
[2020-02-09] MEDS ORDERED: APIXABAN 5 MG TABLET PO SCH (17:30)
[2020-02-09] MEDS ORDERED: METOPROLOL SUCC 50MG EXT REL TAB PO SCH (17:45)
--- NOTE | 2020-02-09 20:19 | Hospitalist Progress Note ---
Date of Service Delayed entry Date of service noted below February 09, 2020 Assessment & Plan (1) Atrial fibrillation with rapid ventricular response: Per previous hospitalist Umair Wilkerson's notes: -as per ED notes on 02/04/2020: 74-year-old female patient who presents to the emergency department complaining of pelvic abdominal pain. On physical exam, the patient has significant tachycardia. EKG reveals A. fib with RVR -as per admitting hospitalist: Her echo done in last month at [facility] showed EF of 45-50%; patient was also initiated on IV heparin drip on admission -after adjusting cardiac medications on this admission, she also got dose of digoxin on 02/07/2020, patient as of 02/08/2020 is better rate controlled while currently on metoprolol 100 mg BID. as per cardiology Dr. Oh, that further plans for management of atrial fibrillation is rate control and then to transition from IV heparin [employer] discharge recommendations: Continue Toprol XL 100 mg twice a day and digoxin 0.125 mg on s, s, and Fridays for rate control Continue Eliquis anticoagulation 5 mg twice a day Consider referral for direct current cardioversion AFTER 4-6 weeks of proper anticoagulation There is room to increase lisinopril if needed for addition blood pressure control as an outpatient. Consider the addition of spironolactone post discharge Amlodipine discontinued. Avoid non-dihydropyridine calcium channel blockers given reduced EF. Outpatient Cardiology follow-up on 02/25/2020 at 3:00 PM, Joy mercer (lives in [place]) Discharge to home home health services (2) Acute systolic (congestive) heart failure: Dr. Umair Wilkerson's notes, previous hospitalist: Dilated cardiomyopathy -history as above -echocardiogram performed at [facility] on 02/04/2020 with Ejection fraction of 25 to 30% and severe global hypokinesis -patient had cardiac catheterization on 02/07/2020 and no evidence of acute coronary syndrome Euvolemic (3) Elevated troponin I level: -troponin levels around 0.1 on this admission likely reflective of RVR on admission (4) Abdominal pain: Previous hospitalist notes Dr. Umair Wilkerson: Left ovarian cyst hepatomegaly constipation -unclear whether her abdominal pain was reflective of underlying atrial fibrillation with RVR -she does report of history of kidney stones months ago, on flomax -CT abdomen 02/05/20 There is a 5 cm simple appearing cystic lesion identified in the left ovary. This is an abnormal finding in this age group, and nonemerg ent/outpatient gynecology assessment and pelvic ultrasound are recommended for further assessment; No acute infectious or inflammatory findings are identified in the abdomen or pelvis. there is Cardiomegaly and pleural effusions. There is Hepatomegaly -during this time while patient is being acutely optimize for cardiac issues, there is no emergent role for further gynecological workup right now. -on bowel regimen for constipation -send hepatitis panel on 02/07/2020 in regards to hepatomegaly, Hepatitis C negative, follow remaining lab panel -- No abdominal pain on discharge day --Close outpatient follow-up, further work-up and management as an outpatient (5) Hypertension: management of medications per #1 (6) Morbidly obese: morbid obesity with BMI of 39.8 -patient may benefit with sleep study as outpatient -02/08/2020: Patient reports that she will never want physical rehabilitation placement or nursing facility after hospital stay but nursing reports she is 2 assist Patient prefers to be discharged to home with home with services Type 2 diabetes mellitus without [facility] current use of insulin - placed on insulin sliding scale. -HbA1c 6.9 Anxiety: History of primary insomnia -On temazepam p.r.n. -On alprazolam p.r.n. History of stroke in the past -On aspirin -currently on IV heparin for cardiac indications Disposition Discharge to home Follow-up with primary care physician in 1 week Follow-up with follow up clerk as noted above Home health services arranged Admission and Anticipated Discharge Date Admission Date: February 04, 2020 Subjective Follow-up for atrial fibrillation Other problems noted below Seen resting in bed, comfortable, not in distress, in good spirits States she feels much better overall She denies chest pain palpitations, dizziness, nausea vomiting, shortness of breath No other symptoms States that she is ready and would like to be discharged Review of Systems Review of Systems: All systems reviewed & are unremarkable except as noted in HPI & below Physical Exam Physical Exam: General- oriented x 3, not in distress, speaks in sentences with no effort or accessory muscle use Eyes- anicteric Neck- no JVD Lungs- clear breath sounds bilaterally, no rales/wheezes Heart- normal rate, irregular rhythm; no murmurs Abdomen- normal bowel sounds, nondistended, soft, nontender Extremities- no pretibial edema, no calf tenderness Neuro- alert, oriented x 3; no gross focal neurologic deficits Skin- warm & dry Results & Data Results & Data ([facility]) Vital Signs (Past 12 Hours) Vital Signs Temp Pulse Pulse Resp BP BP Pulse Ox 02/09/20 17:21 36.6 C 94 H 20 113/66 96 02/09/20 16:26 105 H 02/09/20 15:13 36.6 C 94 H 20 135/91 96 02/09/20 12:11 36.4 C L 88 20 113/66 98 02/09/20 08:23 36.6 C 120 H 20 144/82 H 95 Laboratory Results All noted and reviewed (1) Abdominal pain Abdominal location: lower abdomen, unspecified Qualified Code(s): R10.30 - Lower abdominal pain, unspecified
--- NOTE | 2020-02-10 21:09 | Discharge Summary ---
Date of Service February 10, 2020 Admission HPI Per Admitting Provider CHIEF COMPLAINT: Came with abdominal pain and found to be in rapid AFib. HISTORY OF PRESENT ILLNESS: This is a 74-year-old female with past medical history significant for hyperlipidemia, hypertension, morbid obesity, primary insomnia, anxiety, history of stroke, history of kidney stones, presents with abdominal pain. The patient lives with her . She is from [facility]. She says she was having lower abdominal pain at 10:00 p.m. last night and she could not get to sleep. She was tossing around and she called EMS and came to the hospital. Currently, her abdominal pain got resolved, but she was found to be in rapid AFib when she came in and her troponin were mildly elevated. The patient denies any chest pain. She says she has some shortness of breath on exertion. She has some occasional cough. She says she is wheelchair bound since last few months, before she was able to ambulate with walker, but because of back pain and leg pain, she is not able to stand on legs anymore. Denies any nausea, no headache, no blurred visions. Hard of hearing. No fever, no chills, no sore throat, no dysphagia. Currently, no abdominal pain. Normal bowel and bladder movements. Admission Exam Per Admitting Provider GENERAL: The patient is morbidly obese, not in acute distress. VITAL SIGNS: Temperature 36.9, pulse currently 110, respiratory rate 22, blood pressure 125/94, oxygen 95% on 2 liters. HEENT: No pallor, no icterus. Pupils equal, round, reactive to light. NECK: No JVD, no neck masses. CARDIOVASCULAR: S1, S2 heard, regular rhythm. Tachycardia. RESPIRATORY SYSTEM: Normal AP diameter. No accessory muscle use. No wheezing, no crackles. ABDOMEN: Soft, bowel sounds present, nontender. No distention. CENTRAL NERVOUS SYSTEM: Alert and oriented. Obeys simple commands. Moves extremities. Principal Diagnosis Atrial fibrillation with rapid ventricular response Acute systolic (congestive) heart failure Discharge Exam General- oriented x 3, not in distress, speaks in sentences with no effort or accessory muscle use Eyes- anicteric Neck- no JVD Lungs- clear breath sounds bilaterally, no rales/wheezes Heart- normal rate, irregular rhythm; no murmurs Abdomen- normal bowel sounds, nondistended, soft, nontender Extremities- no pretibial edema, no calf tenderness Neuro- alert, oriented x 3; no gross focal neurologic deficits Skin- warm & dry Discharge Data Allergies Allergy/AdvReac Type Severity Reaction Status Date / Time No Known Allergies Allergy Unverified 02/04/20 03:40 Consultations 02/04/20 03:59 ED Decision to Admit Stat 02/04/20 06:18 Consult Case Management - Discharge Planning Routine 02/04/20 08:00 Consult Cardiology Routine Procedures Performed Operation Date: 02/07/20 09:00 Actual Procedures p Cath, Left with Cors and Vent - Tye Oh MD s Cineradiography w/Routine Exam - Tye Oh MD s Ultrasound Vascular Access - Tye Oh MD Ordered Studies 02/05/20 11:52 CT SCAN OF THE ABDOMEN AND PELVIS WITH IV CONTRAST CLINICAL HISTORY: Generalized abdominal pain. COMPARISON STUDY: No priors. TECHNIQUE: Following the IV administration of 94 cc of Optiray 320, CT scan of the abdomen and pelvis is performed from the lung bases to the proximal femora. Images are reviewed in the axial, sagittal, and coronal planes. IV contrast was administered without complication. Oral contrast was utilized. A dose lowering technique was utilized adhering to the principles of ALARA. The examination is degraded by large body habitus, and by streak artifact from the body wall abutting the CT gantry. The Examination is also degraded by motion artifact. CT DOSE: 1647.47 mGy.cm FINDINGS: Lung bases: The heart is enlarged noting trace pericardial effusion. There are small right and trace left pleural effusions with dependent atelectasis. Liver: The contrast-enhanced liver is mildly enlarged measuring 18.3 cm in length. Hepatic attenuation is heterogeneous. There is no intrahepatic biliary ductal dilatation. The hepatic veins and portal veins are patent. Gallbladder: Unremarkable. Spleen: Normal in size and attenuation. Pancreas: Moderately atrophic and grossly unremarkable. Adrenal glands: Unremarkable. Kidneys: The contrast enhanced kidneys are atrophic and without hydronephrosis. The kidneys enhance symmetrically. Abdominal vasculature: The abdominal aorta is normal in course and caliber noting moderate atherosclerotic calcification. Bowel: There is no bowel obstruction. Enteric contrast reaches the cecum mild fecal retention is noted in the colon. The appendix is normal as visualized. Peritoneum: There is no intraperitoneal free air or abdominal ascites. Lymphadenopathy: None. Pelvic viscera: The bladder is decompressed around a Martinez catheter and cannot be evaluated. The uterus is normal as imaged. There is a 5 cm simple appearing cystic lesion identified in the left ovary on image #[id number]. Skeletal structures: The skeletal structures are osteopenic. Moderate lumbosacral spondylosis is observed. No lytic or blastic lesions are seen. IMPRESSION: 1. Streak and motion degraded examination. 2. No acute infectious or inflammatory findings are identified in the abdomen or pelvis. 3. Cardiomegaly and pleural effusions. 4. Hepatomegaly. 5. There is a 5 cm simple appearing cystic lesion identified in the left ovary. This is an abnormal finding in this age group, and nonemergent/outpatient gynecology assessment and pelvic ultrasound are recommended for further assessment. 6. Additional findings as above. 02/07/20 07:14 Cath Imgs for PACS use only Routine Pre-Procedure Diagnosis Pre-Procedure Diagnosis: CHF and Cardiomyopathy AUC Score AUC Score: 8 Post-Procedure Diagnosis Post-Procedure Diagnosis: Normal Coronary Arteries Hospital Course (1) Atrial fibrillation with rapid ventricular response: Per previous hospitalist Umair Wilkerson's notes: -as per ED notes on 02/04/2020: 74-year-old female patient who presents to the emergency department complaining of pelvic abdominal pain. On physical exam, the patient has significant tachycardia. EKG reveals A. fib with RVR -as per admitting hospitalist: Her echo done in last month at [facility] showed EF of 45-50%; patient was also initiated on IV heparin drip on admission -after adjusting cardiac medications on this admission, she also got dose of digoxin on 02/07/2020, patient as of 02/08/2020 is better rate controlled while currently on metoprolol 100 mg BID. Industrial Engineering Manager discharge recommendations: Continue Toprol XL 100 mg twice a day and digoxin 0.125 mg on Friday's, Friday's, and Fridays for rate control Continue Eliquis anticoagulation 5 mg twice a day Consider referral for direct current cardioversion AFTER 4-6 weeks of proper anticoagulation There is room to increase lisinopril if needed for addition blood pressure control as an outpatient. Consider the addition of spironolactone post discharge Amlodipine discontinued. Avoid non-dihydropyridine calcium channel blockers given reduced EF. Outpatient Cardiology follow-up on 02/25/2020 at 3:00 PM, Joy mercer (lives in [place]) Discharge to home with home health services (2) Acute systolic (congestive) heart failure: Nonischemic Cardiomyopathy Dr. Umair Wilkerson's notes, previous hospitalist: -echocardiogram performed at [facility] on 02/04/2020 with Ejection fraction of 25 to 30% and severe global hypokinesis -patient had cardiac catheterization on 02/07/2020 and no evidence of acute coronary syndrome - Euvolemic consider addition of Spironolactone post discharge (3) Elevated troponin I level: -troponin levels around 0.1 on this admission likely reflective of RVR on admission (4) Abdominal pain: Previous hospitalist notes Dr. Umair Wilkerson: Left ovarian cyst Hepatomegaly Constipation -unclear whether her abdominal pain was reflective of underlying atrial fibrillation with RVR -she does report of history of kidney stones months ago, on flomax - CT abdomen 02/05/20 There is a 5 cm simple appearing cystic lesion identified in the left ovary. This is an abnormal finding in this age group, and nonemergent/outpatient gynecology assessment and pelvic ultrasound are recommended for further assessment; No acute infectious or inflammatory findings are identified in the abdomen or pelvis. there is Cardiomegaly and pleural effusions. There is Hepatomegaly (Full CT report in the Ordered Studies section above) - placed on bowel regimen for constipation - hepatitis panel negative -- No abdominal pain on discharge day -- Close outpatient follow-up, further work-up and management as an outpatient (5) Hypertension: management of medications per #1 (6) Morbidly obese: Morbid obesity with BMI of 39.8 -patient may benefit with sleep study as outpatient -further management as outpatient Type 2 diabetes mellitus without intermission coordinator current use of insulin - placed on insulin sliding scale. -HbA1c 6.9 Anxiety History of primary insomnia - stable -On temazepam p.r.n. -On alprazolam p.r.n. History of stroke - ASA discontinued as patient now on Eliquis Disposition Discharge to home Follow-up with primary care physician in 1 week Follow-up with spiral winder as noted above Home health services arranged Total Time Total Time Spent Total Time Spent (In Minutes): 50 minutes Discharge Plan Discharge Items Patient Disposition: Home - Home Health Services Reason For Visit: ABDOMINAL PAIN Discharge Diagnosis: Atrial fibrillation with rapid ventricular response Acute systolic (congestive) heart failure; Dilated Cardiomyopathy Elevated troponin levels Hypertension Abdominal pain Left ovarian cyst Activity: As commented below Activity Comment: Resume activity gradually as tolerated, No heavy exertion Lifting: Wait until after follow-up appointment Exercise/Sports: Wait until after follow-up appointment Driving/Machine Use: No driving Non-emergency contact: Primary Care Provider and Industrial Engineering Manager Call non-emergency contact if: you have any medication questions, your symptoms worsen, your pain is not controlled, your pain is worsening, your pain is unusual for you, your pain is concerning for you and you have a fever Follow-up/Referrals: Elijah Barker [Physician Eyewear Manufacturing Supervisor] - 02/25/20 3:00 pm Diet: Heart Healthy, Low Fat and Low Sodium (2gm) Addtl Attending Provider Instructions: PLEASE REVIEW YOUR NEW MEDICATION LIST AND FOLLOW INSTRUCTIONS CAREFULLY. YOUR NEW MEDICATIONS INCLUDE: Metoprolol XL and Digoxin- to regular your irregular heart beat Eliquis- blood thinner, to lower your stroke risk increase Lisinopril to twice a day Lasix- water pill to prevent leg swelling, fluid in the lungs STOP AMLODIPINE, CARVEDILOL AND ASPIRIN. RESUME TAKING YOUR METFORMIN TOMORROW. DO NOT TAKE MEDICATIONS UNDER THE CLASS OF NSAIDS: IBUPROFEN, NAPROXEN, ETC. CALL YOUR PRIMARY CARE PHYSICIAN OR RETURN TO THE ER IMMEDIATELY IF WITH RECURRENCE/WORSENING OF SYMPTOMS, CHEST PAIN, PALPITATIONS, SHORTNESS OF BREATH, WEAKNESS, SIGNS OF BLEEDING. PROCEED TO THE ER IMMEDIATELY IF YOU SUSTAIN ANY HEAD TRAUMA. FOLLOW UP APPOINTMENTS: 02/17/2020 11:20 AM Provider Marianne Moreno MD Department Internal Medicine [facility] 02/25/2020 3:00 PM Provider Elijah Barker PA-C Department Cardiology, [facility] 03/15/2020 10:20 AM Provider Marianne Moreno MD Department Internal Medicine [facility] 04/18/2020 10:30 AM Provider CONSTANTIN KIRK Department Radiology [facility] Call your Primary Care doctor if any of the following symptoms or problems start or get worse: Shortness of breath or difficulty breathing Wake up at night short of breath Chest pain Cough Swelling of your hands, feet, or legs More fatigued or tired with your normal activity Palpitations - sudden fast heart beats WEIGHT Weigh yourself every morning after using the bathroom. Use the same scale. Wear the same amount of clothing. Write your weight down on a chart. Call your Primary Care doctor if you gain more than 2-3 pounds in 1-2 days. MEDICATIONS Use this discharge instruction sheet for medication instructions. Take your medications at the time your doctor ordered. Do not skip a dose of your medicines. If you miss a dose of medicine, take it as soon as possible, but DO NOT DOUBLE A DOSE. Read your medicine information when you get home. Know all of the side effects of your medicine. If in doubt, ask your pharmacist Call your Primary Care doctor's office if you have any side effects. Be sure all of your doctors know what medicine and herbs you take (including cold, flu, and herbal medicine). Take the following with you to your follow-up doctor appointments: Weight Chart Medication List List of questions Do not drink excessive alcohol, beer or wine. Who to Call and When: Call 911 or go to the Emergency Room if: If at any time you feel your situation is an emergency You have tightness or pain in your chest that does not go away with rest or Nitroglycerin You are very short of breath even with rest. Addtl Landscaping Manager Provider Instructions: Left ovarian cyst -CT abdomen: There is a 5 cm simple appearing cystic lesion identified in the left ovary. This is an abnormal finding in this age group, and nonemergent/outpatient gynecology assessment and pelvic ultrasound are recommended for further assessment. Pending Studies at Discharge: Yes Studies:: PELVIC ULTRASOUND C/O PRIMARY CARE PHYSICIAN Stand-Alone Forms: My [employer], Smoking Cessation Medications and DC Order Prescriptions: New Eliquis 5 mg Tablet 5 mg PO BID17 Qty: 60 RF: 2 metoprolol succinate 100 mg tablet extended release 24 hr 100 mg PO BID Qty: 60 RF: 2 furosemide 20 mg Tablet 20 mg PO QAM Qty: 30 RF: 2 Continued polyethylene glycol 3350 [Miralax] 17 gram/dose Powder 17 g PO DAILY PRN (Reason: Constipation) RF: 0 metformin 1,000 mg Tablet 1,000 mg PO BID RF: 0 alprazolam 0.25 mg Tablet 0.25 mg PO BID PRN (Reason: Anxiety) RF: 0 docusate sodium [Colace] 100 mg Capsule 100 mg PO BID RF: 0 temazepam 7.5 mg Capsule 7.5 mg PO HS PRN (Reason: Sleep) RF: 0 cyanocobalamin (vitamin B-12) 1,000 mcg Tablet, Sublingual 1,000 mcg SUBLINGUAL DAILY RF: 0 acetaminophen [Tylenol] 325 mg Tablet 325 mg PO Q6H PRN (Reason: Pain) RF: 0 tamsulosin 0.4 mg Capsule 0.4 mg PO DAILY RF: 0 fluticasone propionate [Flonase Allergy Relief] 50 mcg/actuation [place],Suspension 2 spray INTRANASAL DAILY RF: 0 Changed lisinopril 2.5 mg Tablet 2.5 mg PO BID Qty: 0 RF: 0 Discontinued aspirin [Ecotrin Low Strength] 81 mg Tablet,Delayed Release (Dr/Ec) 81 mg PO DAILY RF: 0 amlodipine 5 mg Tablet 5 mg PO DAILY RF: 0 carvedilol 25 mg Tablet 25 mg PO BID RF: 0 ibuprofen 800 mg Tablet 800 mg PO Q8H PRN (Reason: rt knee pain) RF: 0 Discharge Orders: Discharge Order (Routine); Ordered 02/09/20 Ordered By: Ashu Son/Other Patient Handouts: Discharge Instructions for Atrial Fibrillation, Apixaban oral tablets Admission Data Admit Date/Time: 02/04/20 04:49 Attending Provider: Ashu Joseph Admit Provider: Mauro Sanderson Primary Care Provider: PCP,NO Other Providers: Ney Tamez ; Ryan Ramesh ; Tye Oh ; Delfin Chappell ; Barron Eaton ; Elijah Barker ; Sugey Trejo ; Merna Lopes ; Wally Oquendo ; [id number],CAPPT ; Umair Wilkerson Other Interventions: Discharge Summary Assessment (RN) Last Done: 02/09/20 17:21 DC Date/Time DO NOT enter until pt leaves facility: 02/09/20 18:17
== END 2020-02-09 18:17 | disposition home health service (06) | DRG 286 ==
LOC: ED 02:29 → SUATTDRO 04:49 → 2S 04:49

== ENCOUNTER 2020-03-26 15:05 | Inpatient (IN) ==
--- NOTE | 2020-03-26 15:23 | Emergency Department Note ---
Impression & Plan Atrial fibrillation with rapid ventricular response, Elevated troponin I level, Abdominal pain ED Provider Note NAME: HOLLEY FLOYD AGE: 74 SEX: F : 1945 ARRIVES VIA: Ambulance INFORMANT: Patient ED PROVIDER(S): Kory Cabezas DO CHIEF COMPLAINT: Weakness, lightheaded, abdominal pain HPI: Patient is a 74-year-old female with extensive past medical history that presents the ER for multiple complaints. She notes she feels weak and lightheaded. She admits that symptoms started around 1 PM today. She notes she feels sick to her stomach and is having lower abdominal pain 5 out of 10. Denies any vomiting or diarrhea. She admits to dysuria but no frequency. Denies any chest pain or shortness of breath. Admits to feeling her heart race. She was brought in by EMS. She was given 10 IV Cardizem for heart rate in the 130s. No other exacerbating remitting factors. ROS: See above HPI for pertinent positives & negatives. A total of 10 systems reviewed and were otherwise negative. PAST MEDICAL HISTORY:See Below PAST SURGICAL HISTORY:See Below FAMILY HISTORY:See Below SOCIAL HISTORY:See Below HOME MEDICATIONS:See Below ALLERGIES:See Below VITALS:See Below PHYSICAL EXAMINATION: GENERAL: Sitting up in bed, alert, chronically ill-appearing, obese EYE EXAM: normal conjunctiva. PERRL and EOM's grossly intact. OROPHARYNX: no exudate, no erythema, lips, buccal mucosa, and tongue normal and mucous membranes are moist NECK: supple, no nuchal rigidity, no adenopathy, non-tender LUNGS: Clear to auscultation. Normal chest wall mechanics HEART: Tachycardic and irregular regular, S1 normal and S2 normal ABDOMEN: abdomen soft, non-tender, normo-active bowel sounds, no masses, no rebound or guarding. SKIN: no rashes and no bruising UPPER EXTREMITIES: upper extremities are grossly normal. LOWER EXTREMITIES: No pitting edema. NEURO EXAM: Normal sensorium, cranial nerves II-XII grossly intact, normal speech, no gross weakness of arms, no gross weakness of legs. MEDICAL DECISION MAKING: Patient is a 74-year-old female who presents the ER for lower abdominal pain. She is brought in by EMS. She was found to be in A. fib with RVR. Heart rate was in the 130s. IV was established blood work was obtained. Prior to arrival I gave medical command for 10 units of Cardizem IV. Heart rate trended down to the low 100s. IV was established blood work was obtained. Labs show no significant leukocytosis or anemia. BMP was unremarkable. LFTs and bilirubin were unremarkable. Troponin was positive but less than her typical baseline elevation. Lipase was unremarkable. UA was negative. Digoxin was low at 0.2. She was placed on a Cardizem drip after Cardizem bolus. She was monitored closely while in the ER. She was complaining of belly pain and CT abdomen pelvis was performed showed no acute pathology. She is already anticoagulated. She was recently cardioverted within the past week out of A. fib into a sinus rhythm. Discussed with the patient at bedside and this appears to be consistent with her previous admission of belly pain where she was found to be in A. fib with RVR. Discussed with the hospitalist the patient and she will be admitted for further work-up. Triage Nursing notes reviewed. Prior medical records reviewed Vital Signs: reviewed and remarkable for tachycardic Differential diagnosis: Differential diagnoses includes but is not limited to acute coronary syndrome, myocardial infarction, pericarditis, pulmonary embolus, aortic dissection, pneumonia, pneumothorax, musculoskeletal, shingles, esophageal. ER treatment provided: See below Diagnostics interpreted by me: ECG: If A. fib RVR rate 106 ST depressions in the high lateral, inferior, anterior and lateral ST segment elevation in aVR Normal QTC No significant change from previous performed about 5 days ago Cardiac Monitoring: An order was placed for continuous cardiac monitoring. The monitor shows a rate of 110 with Afib rhythm. Laboratory studies: As stated above and show below. Imaging studies: CT abdomen pelvis shows no acute pathology. 4 cm ovarian lesion Portable AP upright 1 view of the chest shows no focal infiltrate Consultation(s): Discussed with Trang bowser for admission ED COURSE: Procedures: none Critical Care: I have personally spent 32 minutes of critical care time in the direct management of this patient. This includes bedside care, interpretation of diagnostic studies, and testing, discussion with consultants, patient, and family members, and other required patient management activities. This 32 minutes is in excess of all separately billable procedures. Past Med/Surg History Social History Smoking Status: Never smoker Hx Alcohol Use: No Hx Substance Use: No Preferred Language: Occitan Communication Ability: Effective Project Admin Required: No Beliefs That Will Affect Care: None Current Living Situation: Spouse Feels Safe at Home: Yes Allergies Allergies Allergy/AdvReac Type Severity Reaction Status Date / Time No Known Allergies Allergy Verified 03/22/20 08:31 Home Meds Home Medications Medication Instructions Recorded Confirmed metformin 1,000 mg PO BID 02/04/20 03/26/20 polyethylene glycol 3350 [Miralax] 17 g PO DAILY PRN 02/04/20 03/26/20 tamsulosin 0.4 mg PO DAILY 02/04/20 03/26/20 temazepam 7.5 mg PO HS PRN 02/04/20 03/26/20 atorvastatin 20 mg PO DAILY 03/22/20 03/26/20 Previous Rx's Medication Instructions Recorded Eliquis 5 mg PO BID17 #60 tab 02/09/20 furosemide 20 mg PO QAM #30 tab 02/09/20 lisinopril 2.5 mg PO BID #0 tab 02/09/20 metoprolol succinate 100 mg PO BID #60 tab 02/09/20 Results & Data (ED) Vital Signs Vital Signs - 24 hr 03/26/20 15:17 03/26/20 15:24 03/26/20 17:16 Temperature 36.7 C Temperature Source Oral Pulse Rate 101 H 109 H Pulse Rate from SpO2 Sensor 105 H Respiratory Rate 20 19 Blood Pressure 134/75 155/106 H Blood Pressure Mean 94 114 Pulse Oximetry 96 96 94 Oxygen Delivery Method Room Air Room Air Sepsis Recent Fever Within 48 Hours No Sepsis New/Unexplained Change in Mental Status No Sepsis Action Taken by Nursing No Action Required 03/26/20 17:51 03/26/20 18:15 03/26/20 18:30 Temperature Temperature Source Pulse Rate 116 H 98 H 102 H Pulse Rate from SpO2 Sensor 98 H 98 H Respiratory Rate 19 33 H 18 Blood Pressure 164/95 H 157/107 H 148/94 H Blood Pressure Mean 103 127 101 Pulse Oximetry 95 97 95 Oxygen Delivery Method Sepsis Recent Fever Within 48 Hours Sepsis New/Unexplained Change in Mental Status Sepsis Action Taken by Nursing 03/26/20 18:45 03/26/20 19:00 03/26/20 19:16 Temperature Temperature Source Pulse Rate 96 H 90 89 Pulse Rate from SpO2 Sensor 87 90 98 H Respiratory Rate 24 18 24 Blood Pressure 136/97 159/95 H 149/94 H Blood Pressure Mean 115 116 105 Pulse Oximetry 96 97 95 Oxygen Delivery Method Sepsis Recent Fever Within 48 Hours Sepsis New/Unexplained Change in Mental Status Sepsis Action Taken by Nursing 03/26/20 19:30 03/26/20 19:45 Temperature Temperature Source Pulse Rate 112 H 108 H Pulse Rate from SpO2 Sensor Respiratory Rate 15 20 Blood Pressure 138/105 H 141/110 H Blood Pressure Mean 115 118 Pulse Oximetry 95 95 Oxygen Delivery Method Sepsis Recent Fever Within 48 Hours Sepsis New/Unexplained Change in Mental Status Sepsis Action Taken by Nursing Laboratory Data Result diagrams: 03/26/20 15:26 03/26/20 16:25 Lab Results 03/26/20 03/26/20 03/26/20 Range/Units 15:26 15:26 15:26 WBC 6.73 (4.8-10.8) K/uL RBC 4.24 (4.2-5.4) M/uL Hgb 13.0 (12.0-16.0) g/dL Hct 40.6 (37-47) % MCV 95.8 (80-100) fL MCH 30.7 (25-34) pg MCHC 32.0 (32-36) g/dL RDW Std Deviation 51.6 H (36.4-46.3) fL RDW Coeff of Moises 14.8 H (11.5-14.5) % Plt Count 273 (130-400) K/uL MPV 11.5 H (7.4-10.4) fL Immature Gran % (Auto) 0.3 % Neut % (Auto) 63.3 % Lymph % (Auto) 24.2 % Eddy % (Auto) 9.4 % Eos % (Auto) 2.5 % Baso % (Auto) 0.3 % Neut # (Auto) 4.26 (1.4-6.5) K/uL Lymph # (Auto) 1.63 (1.2-3.4) K/uL Eddy # (Auto) 0.63 H (0.11-0.59) K/uL Eos # (Auto) 0.17 (0-0.5) K/uL Baso # (Auto) 0.02 (0-0.2) K/uL Immature Gran # (Auto) 0.02 (0.00-0.02) K/uL Sodium 142 (136-145) mmol/L Potassium (3.5-5.1) mmol/L Chloride 105 (98-107) mmol/L Carbon Dioxide 28 (21-32) mmol/L Anion Gap 8.0 (3-11) BUN 20 H (7-18) mg/dl Creatinine 1.25 H (0.6-1.2) mg/dl Est Cr Clr Drug Dosing 49.8 ml/min Est GFR ( Amer) 49.1 Est GFR (Non-Af Amer) 42.3 BUN/Creatinine Ratio 16.2 (10-20) Glucose 121 H (70-99) mg/dl Calcium 8.5 (8.5-10.1) mg/dl Total Bilirubin 0.5 (0.2-1) mg/dl AST (15-37) U/L ALT 17 (12-78) U/L Alkaline Phosphatase 58 (45-117) U/L Troponin I 0.053 H* (0-0.045) ng/ml Total Protein 6.6 (6.4-8.2) gm/dl Albumin 2.9 L (3.4-5.0) gm/dl Globulin 3.7 (2.5-4.0) gm/dl Albumin/Globulin Ratio 0.8 L (0.9-2) Lipase 122 (73-393) U/L Urine Color Urine Appearance (Clear) Urine pH (4.5-7.5) Ur Specific [place] (1.000-1.030) Urine Protein (Negative) Urine Glucose (UA) (Negative) Urine Ketones (Negative) Urine Blood (Negative) Urine Nitrite (Negative) Urine Bilirubin (Negative) Urine Urobilinogen (Negative) Ur Leukocyte Esterase (Negative) Digoxin 0.2 L (0.8-2.0) ng/ml 03/26/20 03/26/20 Range/Units 15:45 16:25 WBC (4.8-10.8) K/uL RBC (4.2-5.4) M/uL Hgb (12.0-16.0) g/dL Hct (37-47) % MCV (80-100) fL MCH (25-34) pg MCHC (32-36) g/dL RDW Std Deviation (36.4-46.3) fL RDW Coeff of Moises (11.5-14.5) % Plt Count (130-400) K/uL MPV (7.4-10.4) fL Immature Gran % (Auto) % Neut % (Auto) % Lymph % (Auto) % Eddy % (Auto) % Eos % (Auto) % Baso % (Auto) % Neut # (Auto) (1.4-6.5) K/uL Lymph # (Auto) (1.2-3.4) K/uL Eddy # (Auto) (0.11-0.59) K/uL Eos # (Auto) (0-0.5) K/uL Baso # (Auto) (0-0.2) K/uL Immature Gran # (Auto) (0.00-0.02) K/uL Sodium (136-145) mmol/L Potassium 3.9 (3.5-5.1) mmol/L Chloride (98-107) mmol/L Carbon Dioxide (21-32) mmol/L Anion Gap (3-11) BUN (7-18) mg/dl Creatinine (0.6-1.2) mg/dl Est Cr Clr Drug Dosing ml/min Est GFR ( Amer) Est GFR (Non-Af Amer) BUN/Creatinine Ratio (10-20) Glucose (70-99) mg/dl Calcium (8.5-10.1) mg/dl Total Bilirubin (0.2-1) mg/dl AST 12 L (15-37) U/L ALT (12-78) U/L Alkaline Phosphatase (45-117) U/L Troponin I (0-0.045) ng/ml Total Protein (6.4-8.2) gm/dl Albumin (3.4-5.0) gm/dl Globulin (2.5-4.0) gm/dl Albumin/Globulin Ratio (0.9-2) Lipase (73-393) U/L Urine Color Yellow Urine Appearance Clear (Clear) Urine pH 5.0 (4.5-7.5) Ur Specific [place] 1.013 (1.000-1.030) Urine Protein Negative (Negative) Urine Glucose (UA) Negative (Negative) Urine Ketones Negative (Negative) Urine Blood Negative (Negative) Urine Nitrite Negative (Negative) Urine Bilirubin Negative (Negative) Urine Urobilinogen Negative (Negative) Ur Leukocyte Esterase Negative (Negative) Digoxin (0.8-2.0) ng/ml Administered Medications Diltiazem HCl 125 mg/ Dextrose 125 mls @ 5 mls/hr IV .Q24H [facility]; Protocol Stop: 04/25/20 17:44 Last Admin: 03/26/20 17:51 Dose: 5 mg/hr, 5 mls/hr Documented by: [id number] Cosigned by: [id number] Discontinued Medications Ioversol (Ioversol 100ml) 92 ml IV ONCE ONE Stop: 03/26/20 16:51 Last Admin: 03/26/20 16:50 Dose: 92 ml Documented by: [id number] Miscellaneous (Stat Iv Infusion Titration Per Protocol) 1 ea N/A NOW STA Stop: 03/26/20 17:38 Last Admin: 03/26/20 18:00 Dose: Not Given Documented by: [id number] Discharge Plan Visit Data Chief Complaint: Cardiac Assessment ED Provider: Kory Cabezas Discharge Problem: Atrial fibrillation with rapid ventricular response, Elevated troponin I level, Abdominal pain Forms Stand Alone Forms: My [facility] [place] Prescriptions Prescriptions: No Action polyethylene glycol 3350 [Miralax] 17 gram/dose Powder 17 g PO DAILY PRN (Reason: Constipation) RF: 0 metformin 1,000 mg Tablet 1,000 mg PO BID RF: 0 temazepam 7.5 mg Capsule 7.5 mg PO HS PRN (Reason: Sleep) RF: 0 tamsulosin 0.4 mg Capsule 0.4 mg PO DAILY RF: 0 Eliquis 5 mg Tablet 5 mg PO BID17 Qty: 60 RF: 2 metoprolol succinate 100 mg tablet extended release 24 hr 100 mg PO BID Qty: 60 RF: 2 furosemide 20 mg Tablet 20 mg PO QAM Qty: 30 RF: 2 lisinopril 2.5 mg Tablet 2.5 mg PO BID Qty: 0 RF: 0 atorvastatin 20 mg tablet 20 mg PO DAILY RF: 0 digoxin 125 mcg (0.125 mg) tablet 125 mcg PO UD RF: 0 Discharge Problem: Abdominal pain Qualifiers: Abdominal location: unspecified location Qualified Code(s): R10.9 - Unspecified abdominal pain
--- NOTE | 2020-03-26 15:39 | XRay Report ---
XR chest 1V portable CLINICAL HISTORY: Atypical chest pain COMPARISON STUDY: 02/04/2020 FINDINGS: The heart is enlarged. There is no failure. There is no focal pulmonary consolidation. Ther e are no pleural effusions. There is a linear band of subsegmental atelectasis/scarring within the le ft midlung zone. There is conventional radiographic evidence of chronic rotator cuff tear/degeneratio n on the right.[ IMPRESSION: No active disease in the chest. ACT 112: Negative or not required by law. Electronically signed by: Ashwin Turner M.D. 03/26/2020 3:38 PM
[2020-03-26 15:41] LABS: Basophils # (auto) 0.02 K/uL (0-0.2); Basophils % (auto) 0.3 %; Eosinophils # (auto) 0.17 K/uL (0-0.5); Eosinophils % (auto) 2.5 %; Hematocrit (blood only) 40.6 % (37-47); Immature Granulocytes # (auto) 0.02 K/uL (0.00-0.02); Immature Granulocytes % (auto) 0.3 %; Lymphocytes # (auto) 1.63 K/uL (1.2-3.4); Lymphocytes % (auto) 24.2 %; Mean Corpuscular Hemoglobin 30.7 pg (25-34); Mean Corpuscular Volume 95.8 fL (80-100); Mean Platelet Volume 11.5 fL (7.4-10.4); Monocytes # (auto) 0.63 K/uL (0.11-0.59); Monocytes % (auto) 9.4 %; Neutrophils # (auto) 4.26 K/uL (1.4-6.5); Neutrophils % (auto) 63.3 %; Platelet Count 273 K/uL (130-400); RDW Coefficient of Variation 14.8 % (11.5-14.5); RDW Standard Deviation 51.6 fL (36.4-46.3); Red Blood Count 4.24 M/uL (4.2-5.4); White Blood Count 6.73 K/uL (4.8-10.8)
[2020-03-26 15:55] LABS: Appearance Urine Clear (Clear); Bilirubin Urine Negative (Negative); Blood Urine Negative (Negative); Color Urine Yellow; Glucose Urine UA Negative (Negative); Ketones Urine Negative (Negative); Leukocyte Esterase Urine Negative (Negative); Nitrite Urine Negative (Negative); Protein Urine Negative (Negative); Specific Gravity Urine 1.013 (1.000-1.030); Urobilinogen Urine Negative (Negative)
[2020-03-26 16:05] LABS: Albumin Globulin Ratio 0.8 (0.9-2); Albumin Level 2.9 gm/dl (3.4-5.0); BUN Creatinine Ratio 16.2 (10-20); Bilirubin,Total 0.5 mg/dl (0.2-1); Calcium 8.5 mg/dl (8.5-10.1); Creatinine Clr Calc Pharmacy 49.8 ml/min; Est GFR (African American) 49.1; Est GFR (Non-African American) 42.3; Globulin 3.7 gm/dl (2.5-4.0); Total Protein 6.6 gm/dl (6.4-8.2)
[2020-03-26 16:08] LABS: Troponin I 0.053 ng/ml (0-0.045)
[2020-03-26 16:43] LABS: Potassium 3.9 mmol/L (3.5-5.1)
[2020-03-26] MEDS ORDERED: IOVERSOL 100ml IV ONE (16:50)
--- NOTE | 2020-03-26 17:04 | CT Scan Report ---
CT abd pelvis IV con only CLINICAL HISTORY: Right lower quadrant abdominal pain COMPARISON STUDY: 02/05/2020 TECHNIQUE: The patient was scanned in a dynamic helical fashion during intravenous and ministration o f 93 cc of Optiray 320. A dose lowering technique was utilized adhering to the principles of ALARA. CT DOSE: 1646.42 mGy.cm FINDINGS: Lower chest: The heart is mildly enlarged. There is respiratory motion artifact. There is mild basila r atelectasis. There are no significant pleural effusions. Liver: The contrast-enhanced liver is normal in size, contour, and attenuation. There is no intrahepa tic biliary ductal dilatation. The hepatic veins and portal veins are patent. Gallbladder: Unremarkable. Spleen: Normal in size and attenuation. Pancreas: Unremarkable. Adrenal glands: Unremarkable. Kidneys: Both kidneys are lobulated. There are no solid renal masses. There is no hydronephrosis. Bowel: There are no transition zones to indicate bowel obstruction. There is fecal retention. There i s no evidence of acute appendicitis. There is no evidence of acute diverticulitis. Peritoneum: There is no intraperitoneal free air or abdominal ascites. Vasculature: The abdominal aorta is normal in course and caliber. Adenopathy: None. Pelvic viscera: There is a stable 46 mm left ovarian cystic lesion. Skeletal structures: No destructive osseous lesions are seen. IMPRESSION: 1. No acute intra-abdominal or pelvic findings. 2. Stable 46 mm left ovarian cystic lesion 3. No evidence of bowel obstruction. No evidence of free air 4. No evidence of acute appendicitis. No evidence of acute diverticulitis. ACT 112: Negative or not required by law. Electronically signed by: Ashwin Turner M.D. 03/26/2020 5:03 PM
[2020-03-26] MEDS ORDERED: STAT IV Infusion **Titration per Protocol STA (17:37)
[2020-03-26] MEDS ORDERED: dilTIAZem HCL 125 MG in DEXTROSE 5% 100 ML IV SCH (17:45)
--- NOTE | 2020-03-26 19:32 | History & Physical Report ---
Date of Service March 26, 2020 Assessment & Plan (1) Atrial fibrillation with rapid ventricular response: 74-year-old female with history of atrial fibrillation status post cardioversion 03/22/2020 with conversion to sinus rhythm, On Eliquis, nonischemic cardiomyopathy ejection fraction 20 to 30%, CVA, diabetes, hypertension, stenting with abdominal discomfort and palpitations at 1 PM today. Atrial fibrillation in RVR, recurrent Status post electrocardioversion 03/22/2020 with successful conversion to sinus rhythm Continue diltiazem drip Continue metoprolol XL 100 mg twice daily, digoxin 125 mcg Wednesdays, Eliquis 5 mg twice a day N.p.o. post midnight Edger Technician consulted Nonischemic cardiomyopathy ejection fraction 25 to 30% Euvolemic Continue lisinopril, metoprolol History of CVA Continue Eliquis next Diabetes type 2 Hold metformin insulin sliding scale Hypertension Continue lisinopril, metoprolol, carvedilol DVT prophylaxis Already on Eliquis CODE STATUS Full code per patient next Disposition Lives with in an apartment unit History of Present Illness 74-year-old female with history of atrial fibrillation status post cardioversion 03/22/2020 with conversion to sinus rhythm, On Eliquis, nonischemic cardiomyopathy ejection fraction 20 to 30%, CVA, diabetes, hypertension, stenting with abdominal discomfort and palpitations at 1 PM today. Patient underwent cardioversion last 03/22/[address] Tamez with successful conversion to sinus rhythm. She reports that she has been feeling well since that procedure until around 1:30 PM today while watching TV, patient felt very warm, flushed, lightheaded and had abdominal discomfort. Symptoms persisted prompting patient's to call the EMS. Patient was found to be in A. fib in RVR, heart rate up to 180s, diltiazem 10 mg IV given. At the ER, patient was started on diltiazem drip, heart rate improved to low 100s. On exam, the patient was seen resting in bed, comfortable, oriented x3, not in distress. States that she feels better overall. Denies active chest pain, palpitations, dizziness, nausea, abdominal pain. No other symptoms Primary Care Provider: Marianne Moreno MD Allergies Allergy/AdvReac Type Severity Reaction Status Date / Time No Known Allergies Allergy Verified 03/22/20 08:31 Home Medications Home Medications Medication Instructions Recorded Confirmed Type metformin 1,000 mg PO BID 02/04/20 03/26/20 History polyethylene glycol 3350 [Miralax] 17 g PO DAILY PRN 02/04/20 03/26/20 History tamsulosin 0.4 mg PO DAILY 02/04/20 03/26/20 History temazepam 7.5 mg PO HS PRN 02/04/20 03/26/20 History Eliquis 5 mg PO BID17 #60 tab 02/09/20 03/26/20 Rx furosemide 20 mg PO QAM #30 tab 02/09/20 03/26/20 Rx lisinopril 2.5 mg PO BID #0 tab 02/09/20 03/26/20 Rx metoprolol succinate 100 mg PO BID #60 tab 02/09/20 03/26/20 Rx atorvastatin 20 mg PO DAILY 03/22/20 03/26/20 History Past Med/Surg History Social History Smoking Status: Never smoker Hx Alcohol Use: No Hx Substance Use: No Preferred Language: Malay Communication Ability: Effective Wafer Polisher Required: No Beliefs That Will Affect Care: None Current Living Situation: Spouse Feels Safe at Home: Yes Review of Systems Review of Systems: All systems reviewed & are unremarkable except as noted in HPI & below Physical Exam Physical Exam: General- oriented x 3, not in distress, speaks in sentences with no effort or accessory muscle use Head- atraumatic Eyes- PERRL, EOMI, anicteric ENT- oropharynx clear Neck- supple, no JVD, no adenopathy, no thyromegaly; carotids +2/2, no bruits appreciated Lungs- clear to auscultation bilaterally, no rales/wheezes Heart-heart rate 108, irregularly irregular rhythm; no murmur, no gallop, no rub appreciated Abdomen- normal bowel sounds, nondistended, soft, nontender, no masses or hepatosplenomegaly Extremities- no pretibial edema, no calf tenderness; peripheral pulses intact Neuro- alert, oriented x 3; CN 2-12 grossly intact; motor 5/5 bilaterally;sensation 100% on all extremities; no other gross focal neurologic deficits Skin- warm & dry Results & Data Results & Data ([facility]) Vital Signs (Past 12 Hours) Vital Signs Temp Pulse Resp BP Pulse Ox 03/26/20 18:30 102 H 18 148/94 H 95 03/26/20 18:15 98 H 33 H 157/107 H 97 03/26/20 17:51 116 H 19 164/95 H 95 03/26/20 17:16 109 H 19 155/106 H 94 03/26/20 15:24 96 03/26/20 15:17 36.7 C 101 H 20 134/75 96 Laboratory Results Laboratory Results - last 24 hr 03/26/20 03/26/20 03/26/20 15:26 15:26 15:26 WBC 6.73 RBC 4.24 Hgb 13.0 Hct 40.6 MCV 95.8 MCH 30.7 MCHC 32.0 RDW Std Deviation 51.6 H RDW Coeff of Moises 14.8 H Plt Count 273 MPV 11.5 H Immature Gran % (Auto) 0.3 Neut % (Auto) 63.3 Lymph % (Auto) 24.2 [place] % (Auto) 9.4 Eos % (Auto) 2.5 Baso % (Auto) 0.3 Neut # (Auto) 4.26 Lymph # (Auto) 1.63 [place] # (Auto) 0.63 H Eos # (Auto) 0.17 Baso # (Auto) 0.02 Immature Gran # (Auto) 0.02 Sodium 142 Potassium Chloride 105 Carbon Dioxide 28 Anion Gap 8.0 BUN 20 H Creatinine 1.25 H Est Cr Clr Drug Dosing 49.8 Est GFR ( Amer) 49.1 Est GFR (Non-Af Amer) 42.3 BUN/Creatinine Ratio 16.2 Glucose 121 H Calcium 8.5 Total Bilirubin 0.5 AST ALT 17 Alkaline Phosphatase 58 Troponin I 0.053 H* Total Protein 6.6 Albumin 2.9 L Globulin 3.7 Albumin/Globulin Ratio 0.8 L Lipase 122 Urine Color Urine Appearance Urine pH Ur Specific [place] Urine Protein Urine Glucose (UA) Urine Ketones Urine Blood Urine Nitrite Urine Bilirubin Urine Urobilinogen Ur Leukocyte Esterase Digoxin 0.2 L 03/26/20 03/26/20 15:45 16:25 WBC RBC Hgb Hct MCV MCH MCHC RDW Std Deviation RDW Coeff of Moises Plt Count MPV Immature Gran % (Auto) Neut % (Auto) Lymph % (Auto) [place] % (Auto) Eos % (Auto) Baso % (Auto) Neut # (Auto) Lymph # (Auto) [place] # (Auto) Eos # (Auto) Baso # (Auto) Immature Gran # (Auto) Sodium Potassium 3.9 Chloride Carbon Dioxide Anion Gap BUN Creatinine Est Cr Clr Drug Dosing Est GFR ( Amer) Est GFR (Non-Af Amer) BUN/Creatinine Ratio Glucose Calcium Total Bilirubin AST 12 L ALT Alkaline Phosphatase Troponin I Total Protein Albumin Globulin Albumin/Globulin Ratio Lipase Urine Color Yellow Urine Appearance Clear Urine pH 5.0 Ur Specific [place] 1.013 Urine Protein Negative Urine Glucose (UA) Negative Urine Ketones Negative Urine Blood Negative Urine Nitrite Negative Urine Bilirubin Negative Urine Urobilinogen Negative Ur Leukocyte Esterase Negative Digoxin Code Status & VTE Plan VTE Prophylaxis Plan VTE Prophylaxis will be ordered: Yes
[2020-03-26] MEDS ORDERED: CARBOHYDRATES FOR HYPOGLYCEMIA PO PRN (20:55)
[2020-03-26] MEDS ORDERED: DIGOXIN 0.125 MG TAB PO SCH (20:55)
[2020-03-26] MEDS ORDERED: TEMAZEPAM 7.5 MG CAPSULE PO PRN (20:55)
[2020-03-26] MEDS ORDERED: GLUCOSE 40% GEL 15 GM TUBE PO PRN (20:55)
[2020-03-26] MEDS ORDERED: DEXTROSE 50% 50 ML SYRINGE IV PRN (20:55)
[2020-03-26] MEDS ORDERED: GLUCAGON FOR INJ 1 MG VIAL SQ PRN (20:55)
[2020-03-26] MEDS ORDERED: GLUCOSE 10 TABS/TUBE PO PRN (20:55)
[2020-03-26] MEDS: METOPROLOL SUCC 50MG EXT REL TAB PO SCH (22:09)
[2020-03-26] MEDS: INSULIN ASPART 100 UNITS/ML 3 ML PEN SC SCH (22:12)
[2020-03-26] MEDS: ACETAMINOPHEN 325 MG TAB PO PRN (23:06)
[2020-03-27 07:06] LABS: Basophils # (auto) 0.02 K/uL (0-0.2); Basophils % (auto) 0.4 %; Eosinophils # (auto) 0.19 K/uL (0-0.5); Eosinophils % (auto) 3.8 %; Hematocrit (blood only) 38.3 % (37-47); Hemoglobin 12.6 g/dL (12.0-16.0); Immature Granulocytes # (auto) 0.02 K/uL (0.00-0.02); Immature Granulocytes % (auto) 0.4 %; Lymphocytes % (auto) 25.9 %; Mean Corpuscular Hemoglobin 30.7 pg (25-34); Mean Corpuscular Hgb Conc 32.9 g/dL (32-36); Mean Corpuscular Volume 93.2 fL (80-100); Mean Platelet Volume 11.3 fL (7.4-10.4); Monocytes # (auto) 0.53 K/uL (0.11-0.59); Monocytes % (auto) 10.6 %; Neutrophils # (auto) 2.96 K/uL (1.4-6.5); Neutrophils % (auto) 58.9 %; Platelet Count 223 K/uL (130-400); RDW Coefficient of Variation 14.5 % (11.5-14.5); RDW Standard Deviation 49.3 fL (36.4-46.3); Red Blood Count 4.11 M/uL (4.2-5.4); White Blood Count 5.02 K/uL (4.8-10.8)
[2020-03-27 07:53] LABS: BUN Creatinine Ratio 19.3 (10-20); Calcium 7.8 mg/dl (8.5-10.1); Creatinine Clr Calc Pharmacy 68.4 ml/min; Est GFR (Non-African American) 63.8; Magnesium 1.1 mg/dl (1.8-2.4); Potassium 3.9 mmol/L (3.5-5.1)
[2020-03-27] MEDS: TAMSULOSIN HCL 0.4 MG CAP PO SCH (08:28)
[2020-03-27] MEDS: ATORVASTATIN 20 MG TAB PO SCH (08:28)
[2020-03-27] MEDS: METOPROLOL SUCC 50MG EXT REL TAB PO SCH ×2 (08:28→20:27)
[2020-03-27] MEDS: FUROSEMIDE 20 MG TAB PO SCH (08:28)
[2020-03-27] MEDS: APIXABAN 5 MG TABLET PO SCH ×2 (08:29→17:24)
[2020-03-27] MEDS: INSULIN ASPART 100 UNITS/ML 3 ML PEN SC SCH ×4 (08:29→20:25)
--- NOTE | 2020-03-27 08:58 | Cardiology Consultation ---
Date of Consultation March 27, 2020 Assessment & Plan (1) Atrial fibrillation with rapid ventricular response: (2) Acute systolic (congestive) heart failure: (3) Elevated troponin I level: (4) Morbidly obese: (5) Dilated cardiomyopathy: (6) Abdominal pain: The patient has chronically elevated cardiac troponins, so I do not believe she has had acute coronary syndrome. The patient had a cardioversion last week and has reverted back to atrial fibrillation. At this point the decision is whether or not to start antiarrhythmic medications and then repeat the cardioversion. I tried a shared decision making process with the patient but frankly she was more interested in when she was going to be able to eat then participating with the decision process. She is completely asymptomatic in regard to her atrial arrhythmias. I do not believe the abdominal discomfort was connected. At this point I think it is best that we continue with anticoagulation and rate control. She is on metoprolol and currently on a low dose of diltiazem intravenously. She has a history of a dilated cardiomyopathy with reduced systolic function. I do not believe diltiazem would be a good alternative for her. I am going to start amiodarone just for rate control and discontinue the diltiazem. History of Present Illness Attending Physician: Jaylin Fraga, History of Present Illness This patient has a history of atrial fibrillation with RVR that has been asymptomatic in the past however, she did undergo a cardioversion last week which put her into sinus rhythm. The patient on the day of admission had some abdominal discomfort. That abdominal discomfort is what brought her to the hospital. She was then noted to be in atrial fibrillation with RVR and admitted to the hospital. She has no complaints today. No shortness of breath or chest pain. She is in a rate controlled atrial fibrillation at this point. PAST MEDICAL HISTORY: 1. Asymptomatic atrial fibrillation with rapid ventricular response with a chads Vasc score of 6 2. Nonischemic cardiomyopathy EF 25 to 30% 3. Normal coronary arteries by cardiac catheterization January 2020 4. Morbid obesity 5. Ambulatory dysfunction in a wheelchair 6. History of CVA 7. Type 2 diabetes 8. Anxiety 9. Questionable dementia Allergies Allergy/AdvReac Type Severity Reaction Status Date / Time No Known Allergies Allergy Verified 03/22/20 08:31 Home Medications Home Medications Medication Instructions Recorded Confirmed Type metformin 1,000 mg PO BID 02/04/20 03/26/20 History polyethylene glycol 3350 [Miralax] 17 g PO DAILY PRN 02/04/20 03/26/20 History tamsulosin 0.4 mg PO DAILY 02/04/20 03/26/20 History temazepam 7.5 mg PO HS PRN 02/04/20 03/26/20 History Eliquis 5 mg PO BID17 #60 tab 02/09/20 03/26/20 Rx furosemide 20 mg PO QAM #30 tab 02/09/20 03/26/20 Rx lisinopril 2.5 mg PO BID #0 tab 02/09/20 03/26/20 Rx metoprolol succinate 100 mg PO BID #60 tab 02/09/20 03/26/20 Rx atorvastatin 20 mg PO DAILY 03/22/20 03/26/20 History digoxin 125 mcg PO UD 03/26/20 03/26/20 History Patient History Social History Smoking Status: Never smoker Second Hand Exposure: No; Do You Dip or Chew Tobacco: No; Tobacco Cessation Education Requested by Patient: No Hx Alcohol Use: No Hx Substance Use: No Preferred Language: Mauritian Communication Ability: Effective 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 Physical Exam Physical Exam: General: no acute distress and stated age Head: normocephalic, no masses, lesions, tenderness or abnormalities Eyes: conjunctiva are pink and non-injected, sclera clear Neck: supple, no adenopathy, no bruits, normal jugular venous pulse, no hepatojugular reflux Chest: normal shape and normal respiratory effort Lungs: clear to auscultation and percussion Cardiac Exam: - irregular rate & rhythm, no murmurs gallops or rubs - normal S1, normal S2 Pulses: 2(+) throughout Abdomen: abdomen soft, non-tender, no abnormal masses and no hepatosplenomegaly Musculoskeletal: no gait disturbance, no joint inflammation, no deforming arthritis Extremities: no edema and no cyanosis Neuro: grossly normal exam Results & Data ([facility]) Vital Signs (Past 12 Hours) Vital Signs Temp Pulse Resp BP BP Pulse Ox 03/27/20 07:58 36.6 C 87 18 136/83 94 03/27/20 03:45 36.7 C 83 18 128/81 94 03/27/20 00:08 36.5 C 87 20 124/73 95 Laboratory Results Laboratory Results - last 24 hr 03/26/20 03/26/20 03/26/20 15:26 15:26 15:26 WBC 6.73 RBC 4.24 Hgb 13.0 Hct 40.6 MCV 95.8 MCH 30.7 MCHC 32.0 RDW Std Deviation 51.6 H RDW Coeff of Moises 14.8 H Plt Count 273 MPV 11.5 H Immature Gran % (Auto) 0.3 Neut % (Auto) 63.3 Lymph % (Auto) 24.2 Boundary % (Auto) 9.4 Eos % (Auto) 2.5 Baso % (Auto) 0.3 Neut # (Auto) 4.26 Lymph # (Auto) 1.63 Boundary # (Auto) 0.63 H Eos # (Auto) 0.17 Baso # (Auto) 0.02 Immature Gran # (Auto) 0.02 Sodium 142 Potassium Chloride 105 Carbon Dioxide 28 Anion Gap 8.0 BUN 20 H Creatinine 1.25 H Est Cr Clr Drug Dosing 49.8 Est GFR ( Amer) 49.1 Est GFR (Non-Af Amer) 42.3 BUN/Creatinine Ratio 16.2 Glucose 121 H POC Glucose Calcium 8.5 Magnesium Total Bilirubin 0.5 AST ALT 17 Alkaline Phosphatase 58 Troponin I 0.053 H* Total Protein 6.6 Albumin 2.9 L Globulin 3.7 Albumin/Globulin Ratio 0.8 L Lipase 122 Urine Color Urine Appearance Urine pH Ur Specific [place] Urine Protein Urine Glucose (UA) Urine Ketones Urine Blood Urine Nitrite Urine Bilirubin Urine Urobilinogen Ur Leukocyte Esterase Digoxin 0.2 L 03/26/20 03/26/20 03/26/20 15:45 16:25 20:44 WBC RBC Hgb Hct MCV MCH MCHC RDW Std Deviation RDW Coeff of Moises Plt Count MPV Immature Gran % (Auto) Neut % (Auto) Lymph % (Auto) Boundary % (Auto) Eos % (Auto) Baso % (Auto) Neut # (Auto) Lymph # (Auto) Boundary # (Auto) Eos # (Auto) Baso # (Auto) Immature Gran # (Auto) Sodium Potassium 3.9 Chloride Carbon Dioxide Anion Gap BUN Creatinine Est Cr Clr Drug Dosing Est GFR ( Amer) Est GFR (Non-Af Amer) BUN/Creatinine Ratio Glucose POC Glucose 159 H Calcium Magnesium Total Bilirubin AST 12 L ALT Alkaline Phosphatase Troponin I Total Protein Albumin Globulin Albumin/Globulin Ratio Lipase Urine Color Yellow Urine Appearance Clear Urine pH 5.0 Ur Specific [place] 1.013 Urine Protein Negative Urine Glucose (UA) Negative Urine Ketones Negative Urine Blood Negative Urine Nitrite Negative Urine Bilirubin Negative Urine Urobilinogen Negative Ur Leukocyte Esterase Negative Digoxin 03/27/20 03/27/20 03/27/20 06:38 06:38 07:08 WBC 5.02 RBC 4.11 L Hgb 12.6 Hct 38.3 MCV 93.2 MCH 30.7 MCHC 32.9 RDW Std Deviation 49.3 H RDW Coeff of Moises 14.5 Plt Count 223 MPV 11.3 H Immature Gran % (Auto) 0.4 Neut % (Auto) 58.9 Lymph % (Auto) 25.9 Boundary % (Auto) 10.6 Eos % (Auto) 3.8 Baso % (Auto) 0.4 Neut # (Auto) 2.96 Lymph # (Auto) 1.30 Boundary # (Auto) 0.53 Eos # (Auto) 0.19 Baso # (Auto) 0.02 Immature Gran # (Auto) 0.02 Sodium 140 Potassium 3.9 Chloride 105 Carbon Dioxide 28 Anion Gap 7.0 BUN 17 Creatinine 0.89 D Est Cr Clr Drug Dosing 68.4 Est GFR ( Amer) 74.0 Est GFR (Non-Af Amer) 63.8 BUN/Creatinine Ratio 19.3 Glucose 118 H POC Glucose 135 H Calcium 7.8 L Magnesium 1.1 L Total Bilirubin AST ALT Alkaline Phosphatase Troponin I Total Protein Albumin Globulin Albumin/Globulin Ratio Lipase Urine Color Urine Appearance Urine pH Ur Specific [place] Urine Protein Urine Glucose (UA) Urine Ketones Urine Blood Urine Nitrite Urine Bilirubin Urine Urobilinogen Ur Leukocyte Esterase Digoxin Medications Administered Current Inpatient Medications Acetaminophen (Acetaminophen 325 Mg Tab) 650 mg PO Q4H PRN PRN Reason: Pain or Fever Stop: 04/25/20 20:54 Last Admin: 03/26/20 23:06 Dose: 650 mg Documented by: Apixaban (Apixaban 5 Mg Tablet) 5 mg PO BID17 [facility] Stop: 04/26/20 08:59 Last Admin: 03/27/20 08:29 Dose: 5 mg Documented by: Atorvastatin Calcium (Atorvastatin 20 Mg Tab) 20 mg PO DAILY [facility] Stop: 04/26/20 08:59 Last Admin: 03/27/20 08:28 Dose: 20 mg Documented by: Dextrose (Dextrose 50% 50 Ml Syringe) 25 - 50 ml IV UD PRN; Protocol PRN Reason: Hypoglycemia Protocol Stop: 04/25/20 20:54 Digoxin (Digoxin 0.125 Mg Tab) 0.125 mg PO UD [facility] Stop: 04/25/20 20:54 Furosemide (Furosemide 20 Mg Tab) 20 mg PO QAM [facility] Stop: 04/26/20 08:59 Last Admin: 03/27/20 08:28 Dose: 20 mg Documented by: Glucagon (Glucagon For Inj 1 Mg Vial) 1 mg SQ UD PRN; Protocol PRN Reason: Hypoglycemia Protocol Stop: 04/25/20 20:54 Glucose (Glucose 10 Tabs/Tube) 4 - 8 tabs PO UD PRN; Protocol PRN Reason: Hypoglycemia Protocol Stop: 04/25/20 20:54 Glucose (Glucose 40% Gel 15 Gm Tube) 15 - 30 gm PO UD PRN; Protocol PRN Reason: Hypoglycemia Protocol Stop: 04/25/20 20:54 Diltiazem HCl 125 mg/ Dextrose 125 mls @ 5 mls/hr IV .Q24H [facility]; Protocol Stop: 04/25/20 17:44 Last Admin: 03/26/20 17:51 Dose: 5 mg/hr, 5 mls/hr Documented by: Insulin Aspart (Insulin Aspart 100 Units/Ml 3 Ml Pen) 0 units SC ACHS [facility] Stop: 04/25/20 20:59 Last Admin: 03/27/20 08:29 Dose: Not Given Documented by: Lisinopril (Lisinopril 2.5 Mg Tab) 2.5 mg PO BID [facility] Stop: 04/25/20 20:59 Last Admin: 03/27/20 08:29 Dose: 2.5 mg Documented by: Metoprolol Succinate (Metoprolol Succ 50mg Ext Rel Tab) 100 mg PO BID [facility] Stop: 04/25/20 20:59 Last Admin: 03/27/20 08:28 Dose: 100 mg Documented by: Miscellaneous (Carbohydrates For Hypoglycemia ) 15 - 30 gm PO UD PRN PRN Reason: Hypoglycemia Protocol Stop: 04/25/20 20:54 Tamsulosin HCl (Tamsulosin Hcl 0.4 Mg Cap) 0.4 mg PO DAILY [facility] Stop: 04/26/20 08:59 Last Admin: 03/27/20 08:28 Dose: 0.4 mg Documented by: Temazepam (Temazepam 7.5 Mg Capsule) 7.5 mg PO HS PRN PRN Reason: Sleep Stop: 04/25/20 20:54 Last Admin: 03/26/20 23:56 Dose: 7.5 mg Documented by: (1) Abdominal pain Abdominal location: unspecified location Qualified Code(s): R10.9 - Unspecified abdominal pain
--- NOTE | 2020-03-27 12:14 | Hospitalist Progress Note ---
Date of Service March 27, 2020 Assessment & Plan (1) Atrial fibrillation with rapid ventricular response: Failed DCCV last week. Remains in afib overnight. Per Cardiology wll begin amiodarone at this time. Cont to monitor on telemetry. Cont Eliquis and Toprol XL 100mg BID. Currently HR is in the 60s. Has a h/o CVA in the past. (2) Dilated cardiomyopathy: EF 25%. Cont Toprol and lisinopril per home regimen. cont Lasix 20mg QD (3) Hypertension: At goal, cont home regimen. (4) Morbidly obese: Encourage to lose weight. Patient is unable to walk and uses a wheelchair to get around. She will need to focus on changing her diet. (5) Abdominal pain: resolved, no UTI (6) Elevated troponin I level: chronically elevated. Pt denies chest pain and per Cardiology, she is not experiencing ACS. (7) Hypomagnesemia: replaced and repeat in am. (8) Rash: nonspecific back and chest rash of uncertain etiology. she does report a change in recent detergent. She is getting benadryl to help with the itching. Will cont to monitor now. (9) DMII (diabetes mellitus, type 2): ISS while hospitalized. At goal. A1C also at goal last month. (10) DVT prophylaxis: Eliquis Full Code Dispo-to home when medically stable. Jaylin Fraga DO [facility] Hospitalist Admission and Anticipated Discharge Date Admission Date: March 26, 2020 Subjective Pt feels well today Reports not realizing that she went into afib yesterday started amiodarone per Cards today Had some dysuria but urine studies were clear and she has no further symptoms today. Denies CP, palpitations, SOB. She is tolerating PO Denies fevers or chills. Review of Systems Review of Systems: All systems reviewed & are unremarkable except as noted in Subjective Physical Exam Physical Exam: CONSTITUTIONAL: Obese, vitals as above, generally well-appea ring EYES: pupils are round and equal bilaterally, normal conjunctivae, no scleral icterus ENT: MMM RESPIRATORY: clear to auscultation bilaterally, no crackles, rales or wheezes, normal respiratory effort CARDIOVASCULAR: irregular rate and rhythm, S1 and 2 heard without murmurs, gallops or rubs, no JVD, no peripheral edema GASTROINTESTINAL: soft, nontender, nondistended. MUSCULOSKELETAL: general physical weak, cannot sit up in bed on her own. head is normocephalic and atraumatic SKIN: warm and dry, +erythematous rashes that are pruritic with scratch singleton both on anterior central chest area and all across her lower back. NEUROLOGIC: No facial palsy, no dysarthria. CN 2-12 grossly intact, no sensory deficit, normal cognition, normal speech, no tremor. No gross focal deficits. PSYCHIATRIC: alert cooperative and oriented to person, place and time. Results & Data Results & Data ([facility]) Vital Signs (Past 12 Hours) Vital Signs Temp Pulse Pulse Resp BP BP Pulse Ox 03/27/20 11:19 36.4 C L 86 20 105/72 96 03/27/20 10:53 78 03/27/20 07:58 36.6 C 87 18 136/83 94 03/27/20 03:45 36.7 C 83 18 128/81 94 Laboratory Results Short CBC 03/26/20 03/27/20 Range/Units 15:26 06:38 WBC 6.73 5.02 (4.8-10.8) K/uL Hgb 13.0 12.6 (12.0-16.0) g/dL Hct 40.6 38.3 (37-47) % Plt Count 273 223 (130-400) K/uL BMP 03/26/20 03/26/20 03/27/20 15:26 16:25 06:38 Sodium 142 140 Potassium 3.9 3.9 Chloride 105 105 Carbon Dioxide 28 28 BUN 20 H 17 Creatinine 1.25 H 0.89 D Glucose 121 H 118 H Calcium 8.5 7.8 L Cardiac Enzymes 03/26/20 Range/Units 15:26 Troponin I 0.053 H* (0-0.045) ng/ml Liver Function 03/26/20 03/26/20 Range/Units 15:26 16:25 Total Bilirubin 0.5 (0.2-1) mg/dl AST 12 L (15-37) U/L ALT 17 (12-78) U/L Alkaline Phosphatase 58 (45-117) U/L Albumin 2.9 L (3.4-5.0) gm/dl Urine 03/26/20 Range/Units 15:45 Urine Color Yellow Urine Appearance Clear (Clear) Urine pH 5.0 (4.5-7.5) Ur Specific [place] 1.013 (1.000-1.030) Urine Protein Negative (Negative) Urine Glucose (UA) Negative (Negative) Medications Administered Current Inpatient Medications Acetaminophen (Acetaminophen 325 Mg Tab) 650 mg PO Q4H PRN PRN Reason: Pain or Fever Stop: 04/25/20 20:54 Last Admin: 03/26/20 23:06 Dose: 650 mg Documented by: Amiodarone HCl (Amiodarone 200 Mg Tab) 200 mg PO TIDM [facility] Stop: 04/26/20 11:59 Apixaban (Apixaban 5 Mg Tablet) 5 mg PO BID17 [facility] Stop: 04/26/20 08:59 Last Admin: 03/27/20 08:29 Dose: 5 mg Documented by: Atorvastatin Calcium (Atorvastatin 20 Mg Tab) 20 mg PO DAILY [facility] Stop: 04/26/20 08:59 Last Admin: 03/27/20 08:28 Dose: 20 mg Documented by: Dextrose (Dextrose 50% 50 Ml Syringe) 25 - 50 ml IV UD PRN; Protocol PRN Reason: Hypoglycemia Protocol Stop: 04/25/20 20:54 Furosemide (Furosemide 20 Mg Tab) 20 mg PO QAM [facility] Stop: 04/26/20 08:59 Last Admin: 03/27/20 08:28 Dose: 20 mg Documented by: Glucagon (Glucagon For Inj 1 Mg Vial) 1 mg SQ UD PRN; Protocol PRN Reason: Hypoglycemia Protocol Stop: 04/25/20 20:54 Glucose (Glucose 10 Tabs/Tube) 4 - 8 tabs PO UD PRN; Protocol PRN Reason: Hypoglycemia Protocol Stop: 04/25/20 20:54 Glucose (Glucose 40% Gel 15 Gm Tube) 15 - 30 gm PO UD PRN; Protocol PRN Reason: Hypoglycemia Protocol Stop: 04/25/20 20:54 Magnesium Sulfate/Dextrose (Magnesium Sulfate / D5w) 1 gm in 100 mls @ 50 mls/hr IV Q2H [facility] Stop: 03/27/20 14:11 Insulin Aspart (Insulin Aspart 100 Units/Ml 3 Ml Pen) 0 units SC ACHS [facility] Stop: 04/25/20 20:59 Last Admin: 03/27/20 08:29 Dose: Not Given Documented by: Lisinopril (Lisinopril 2.5 Mg Tab) 2.5 mg PO BID [facility] Stop: 04/25/20 20:59 Last Admin: 03/27/20 08:29 Dose: 2.5 mg Documented by: Metoprolol Succinate (Metoprolol Succ 50mg Ext Rel Tab) 100 mg PO BID [facility] Stop: 04/25/20 20:59 Last Admin: 03/27/20 08:28 Dose: 100 mg Documented by: Miscellaneous (Carbohydrates For Hypoglycemia ) 15 - 30 gm PO UD PRN PRN Reason: Hypoglycemia Protocol Stop: 04/25/20 20:54 Tamsulosin HCl (Tamsulosin Hcl 0.4 Mg Cap) 0.4 mg PO DAILY [facility] Stop: 04/26/20 08:59 Last Admin: 03/27/20 08:28 Dose: 0.4 mg Documented by: Temazepam (Temazepam 7.5 Mg Capsule) 7.5 mg PO HS PRN PRN Reason: Sleep Stop: 04/25/20 20:54 Last Admin: 03/26/20 23:56 Dose: 7.5 mg Documented by: (1) Abdominal pain Abdominal location: unspecified location Qualified Code(s): R10.9 - Unspecified abdominal pain
[2020-03-27] MEDS: MAGNESIUM SULFATE / D5W 1 GM/100 ML BAG IV SCH ×4 (13:12→18:18)
[2020-03-27] MEDS: AMIODARONE 200 MG TAB PO SCH ×2 (13:12→17:24)
[2020-03-27] MEDS ORDERED: dilTIAZem HCL 30 MG TAB PO SCH (14:00)
[2020-03-27] MEDS: ACETAMINOPHEN 325 MG TAB PO PRN (20:31)
--- NOTE | 2020-03-28 06:27 | Electrocardiogram Report ---
Test Reason : Blood Pressure : / mmHG Vent. Rate : 106 BPM Atrial Rate : 105 BPM P-R Int : 000 ms QRS Dur : 098 ms QT Int : 334 ms P-R-T Axes : 000 036 192 degrees QTc Int : 443 ms Atrial fibrillation with rapid ventricular response Abnormal ECG When compared with ECG of 22-MAR-2020 09:34, Atrial fibrillation has replaced Possible wandering atrial pacemaker Confirmed by Kenneth Delcid ([id number]) on 03/28/2020 6:26:34 AM Referred By: Confirmed By:Kenneth Delcid
[2020-03-28 07:00] LABS: Hematocrit (blood only) 39.5 % (37-47); Hemoglobin 12.8 g/dL (12.0-16.0); Mean Corpuscular Hgb Conc 32.4 g/dL (32-36); Mean Corpuscular Volume 92.7 fL (80-100); Mean Platelet Volume 11.4 fL (7.4-10.4); Platelet Count 234 K/uL (130-400); RDW Coefficient of Variation 14.6 % (11.5-14.5); Red Blood Count 4.26 M/uL (4.2-5.4); White Blood Count 4.66 K/uL (4.8-10.8)
[2020-03-28 07:34] LABS: BUN Creatinine Ratio 19.1 (10-20); Calcium 8.6 mg/dl (8.5-10.1); Creatinine Clr Calc Pharmacy 52.2 ml/min; Est GFR (African American) 53.2; Est GFR (Non-African American) 45.9; Magnesium 2.4 mg/dl (1.8-2.4); Potassium 3.8 mmol/L (3.5-5.1)
[2020-03-28] MEDS: ATORVASTATIN 20 MG TAB PO SCH (07:50)
[2020-03-28] MEDS: APIXABAN 5 MG TABLET PO SCH ×2 (07:50→17:17)
[2020-03-28] MEDS: METOPROLOL SUCC 50MG EXT REL TAB PO SCH ×2 (07:50→20:20)
[2020-03-28] MEDS: AMIODARONE 200 MG TAB PO SCH ×3 (07:51→17:16)
[2020-03-28] MEDS: FUROSEMIDE 20 MG TAB PO SCH (07:51)
[2020-03-28] MEDS: TAMSULOSIN HCL 0.4 MG CAP PO SCH (07:51)
[2020-03-28] MEDS: INSULIN ASPART 100 UNITS/ML 3 ML PEN SC SCH ×4 (07:51→21:34)
[2020-03-28] MEDS: ACETAMINOPHEN 325 MG TAB PO PRN ×2 (09:07→19:29)
--- NOTE | 2020-03-28 11:17 | Cardiology Progress Note ---
Date of Service March 28, 2020 Assessment & Plan (1) Atrial fibrillation with rapid ventricular response: (2) Acute systolic (congestive) heart failure: (3) Elevated troponin I level: (4) Morbidly obese: (5) Dilated cardiomyopathy: (6) Abdominal pain: The patient is asymptomatic in regard to her atrial fibrillation. Rates are better controlled after the start of amiodarone in combination with metoprolol. At present I would continue a loading dose of amiodarone. Admission and Anticipated Discharge Date Admission Date: March 26, 2020 Subjective The patient is comfortable and has no new complaints. Review of Systems Review of Systems: All systems reviewed & are unremarkable except as noted in HPI & below Nothing additional to add Physical Exam Physical Exam: General: no acute distress and stated age Head: normocephalic, no masses, lesions, tenderness or abnormalities Eyes: conjunctiva are pink and non-injected, sclera clear Neck: supple, no adenopathy, no bruits, normal jugular venous pulse, no hepatojugular reflux Chest: normal shape and normal respiratory effort Lungs: clear to auscultation and percussion Cardiac Exam: - irregular rate & rhythm, no murmurs gallops or rubs - normal S1, normal S2 Pulses: 2(+) throughout Abdomen: abdomen soft, non-tender, no abnormal masses and no hepatosplenomegaly Musculoskeletal: no gait disturbance, no joint inflammation, no deforming arthritis Extremities: no edema and no cyanosis Neuro: grossly normal exam Results & Data ([facility]) Vital Signs (Past 12 Hours) Vital Signs Temp Pulse Pulse Resp BP Pulse Ox 03/28/20 08:00 36.7 C 92 H 18 130/83 96 03/28/20 07:00 84 03/28/20 03:52 36.5 C 93 H 20 132/78 96 03/27/20 23:53 36.3 C L 92 H 19 143/73 H 96 Laboratory Results Laboratory Results - last 24 hr 03/27/20 03/27/20 03/27/20 11:38 16:29 20:10 WBC RBC Hgb Hct MCV MCH MCHC RDW Std Deviation RDW Coeff of Moises Plt Count MPV Sodium Potassium Chloride Carbon Dioxide Anion Gap BUN Creatinine Est Cr Clr Drug Dosing Est GFR ( Amer) Est GFR (Non-Af Amer) BUN/Creatinine Ratio Glucose POC Glucose 144 H 160 H 180 H Calcium Magnesium 03/28/20 03/28/20 03/28/20 06:28 06:28 07:21 WBC 4.66 L RBC 4.26 Hgb 12.8 Hct 39.5 MCV 92.7 MCH 30.0 MCHC 32.4 RDW Std Deviation 49.0 H RDW Coeff of Moises 14.6 H Plt Count 234 MPV 11.4 H Sodium 140 Potassium 3.8 Chloride 105 Carbon Dioxide 28 Anion Gap 7.0 BUN 22 H Creatinine 1.17 Est Cr Clr Drug Dosing 52.2 Est GFR ( Amer) 53.2 Est GFR (Non-Af Amer) 45.9 BUN/Creatinine Ratio 19.1 Glucose 144 H POC Glucose 153 H Calcium 8.6 Magnesium 2.4 Medications Administered Current Inpatient Medications Acetaminophen (Acetaminophen 325 Mg Tab) 650 mg PO Q4H PRN PRN Reason: Pain or Fever Stop: 04/25/20 20:54 Last Admin: 03/28/20 09:07 Dose: 650 mg Documented by: Amiodarone HCl (Amiodarone 200 Mg Tab) 200 mg PO TIDM [facility] Stop: 04/26/20 11:59 Last Admin: 03/28/20 07:51 Dose: 200 mg Documented by: Apixaban (Apixaban 5 Mg Tablet) 5 mg PO BID17 [facility] Stop: 04/26/20 08:59 Last Admin: 03/28/20 07:50 Dose: 5 mg Documented by: Atorvastatin Calcium (Atorvastatin 20 Mg Tab) 20 mg PO DAILY [facility] Stop: 04/26/20 08:59 Last Admin: 03/28/20 07:50 Dose: 20 mg Documented by: Dextrose (Dextrose 50% 50 Ml Syringe) 25 - 50 ml IV UD PRN; Protocol PRN Reason: Hypoglycemia Protocol Stop: 04/25/20 20:54 Diphenhydramine HCl (Diphenhydramine Hcl 25 Mg Cap) 25 mg PO Q6H PRN PRN Reason: Itching Stop: 04/26/20 16:14 Last Admin: 03/27/20 17:28 Dose: 25 mg Documented by: Furosemide (Furosemide 20 Mg Tab) 20 mg PO QAM [facility] Stop: 04/26/20 08:59 Last Admin: 03/28/20 07:51 Dose: 20 mg Documented by: Glucagon (Glucagon For Inj 1 Mg Vial) 1 mg SQ UD PRN; Protocol PRN Reason: Hypoglycemia Protocol Stop: 04/25/20 20:54 Glucose (Glucose 10 Tabs/Tube) 4 - 8 tabs PO UD PRN; Protocol PRN Reason: Hypoglycemia Protocol Stop: 04/25/20 20:54 Glucose (Glucose 40% Gel 15 Gm Tube) 15 - 30 gm PO UD PRN; Protocol PRN Reason: Hypoglycemia Protocol Stop: 04/25/20 20:54 Insulin Aspart (Insulin Aspart 100 Units/Ml 3 Ml Pen) 0 units SC ACHS [facility] Stop: 04/25/20 20:59 Last Admin: 03/28/20 07:51 Dose: 3 units Documented by: Lisinopril (Lisinopril 2.5 Mg Tab) 2.5 mg PO BID [facility] Stop: 04/25/20 20:59 Last Admin: 03/28/20 07:51 Dose: 2.5 mg Documented by: Metoprolol Succinate (Metoprolol Succ 50mg Ext Rel Tab) 100 mg PO BID [facility] Stop: 04/25/20 20:59 Last Admin: 03/28/20 07:50 Dose: 100 mg Documented by: Miscellaneous (Carbohydrates For Hypoglycemia ) 15 - 30 gm PO UD PRN PRN Reason: Hypoglycemia Protocol Stop: 04/25/20 20:54 Tamsulosin HCl (Tamsulosin Hcl 0.4 Mg Cap) 0.4 mg PO DAILY [facility] Stop: 04/26/20 08:59 Last Admin: 03/28/20 07:51 Dose: 0.4 mg Documented by: Temazepam (Temazepam 7.5 Mg Capsule) 7.5 mg PO HS PRN PRN Reason: Sleep Stop: 04/25/20 20:54 Last Admin: 03/26/20 23:56 Dose: 7.5 mg Documented by: (1) Abdominal pain Abdominal location: unspecified location Qualified Code(s): R10.9 - Unspecified abdominal pain
--- NOTE | 2020-03-28 11:36 | Hospitalist Progress Note ---
Date of Service March 28, 2020 Assessment & Plan (1) Atrial fibrillation with rapid ventricular response: Failed DCCV last week. Remains in afib overnight. Amio per Cardiology. Cont to monitor on telemetry. Cont Eliquis and Toprol XL 100mg BID. Currently HR is in the 60s. Has a h/o CVA in the past. (2) Dilated cardiomyopathy: EF 25%. Cont Toprol and lisinopril per home regimen. cont Lasix 20mg QD. Currently appears euvolemic. (3) Hypertension: At goal, cont home regimen. (4) Morbidly obese: Encourage to lose weight. Patient is unable to walk and uses a wheelchair to get around. She will need to focus on changing her diet. (5) Abdominal pain: resolved, no UTI (6) Elevated troponin I level: chronically elevated. Pt denies chest pain and per Cardiology, she is not experiencing ACS. No further workup. (7) Hypomagnesemia: repleted (8) Rash: nonspecific back and chest rash is in a pattern of the Cardioversion pads that were placed on her last week for the DCCV. They look better after the Benadryl given causing her scratching to improve. (9) DMII (diabetes mellitus, type 2): ISS while hospitalized. At goal. A1C also at goal last month. (10) CKD (chronic kidney disease), stage III: At baseline (11) DVT prophylaxis: Eliquis Full Code Dispo-to home when medically stable. May benefit from home health for PT and OT once home. Jaylin Fraga DO [facility] Hospitalist Admission and Anticipated Discharge Date Admission Date: March 26, 2020 Physical Exam Physical Exam: CONSTITUTIONAL: Obese, vitals as above, generally well- appearing EYES: pupils are round and equal bilaterally, normal conjunctivae, no scleral icterus ENT: MMM RESPIRATORY: clear to auscultation bilaterally, no crackles, rales or wheezes, normal respiratory effort CARDIOVASCULAR: irregular rate and rhythm, S1 and 2 heard without murmurs, gallops or rubs, no JVD, no peripheral edema GASTROINTESTINAL: soft, nontender, nondistended. MUSCULOSKELETAL: general physical weak, cannot sit up in bed on her own. head is normocephalic and atraumatic SKIN: warm and dry, +erythematous rashes that are pruritic with scratch singleton both on anterior central chest area and all across her lower back. NEUROLOGIC: No facial palsy, no dysarthria. CN 2-12 grossly intact, no sensory deficit, normal cognition, normal speech, no tremor. No gross focal deficits. PSYCHIATRIC: alert cooperative and oriented to person, place and time. Results & Data Results & Data ([facility]) Vital Signs (Past 12 Hours) Vital Signs Temp Pulse Pulse Resp BP Pulse Ox 03/28/20 08:00 36.7 C 92 H 18 130/83 96 03/28/20 07:00 84 03/28/20 03:52 36.5 C 93 H 20 132/78 96 03/27/20 23:53 36.3 C L 92 H 19 143/73 H 96 Laboratory Results Short CBC 03/28/20 Range/Units 06:28 WBC 4.66 L (4.8-10.8) K/uL Hgb 12.8 (12.0-16.0) g/dL Hct 39.5 (37-47) % Plt Count 234 (130-400) K/uL BMP 03/28/20 06:28 Sodium 140 Potassium 3.8 Chloride 105 Carbon Dioxide 28 BUN 22 H Creatinine 1.17 Glucose 144 H Calcium 8.6 Medications Administered Current Inpatient Medications Acetaminophen (Acetaminophen 325 Mg Tab) 650 mg PO Q4H PRN PRN Reason: Pain or Fever Stop: 04/25/20 20:54 Last Admin: 03/28/20 09:07 Dose: 650 mg Documented by: Amiodarone HCl (Amiodarone 200 Mg Tab) 200 mg PO TIDM BERNARD Stop: 04/26/20 11:59 Last Admin: 03/28/20 07:51 Dose: 200 mg Documented by: Apixaban (Apixaban 5 Mg Tablet) 5 mg PO BID17 BERNARD Stop: 04/26/20 08:59 Last Admin: 03/28/20 07:50 Dose: 5 mg Documented by: Atorvastatin Calcium (Atorvastatin 20 Mg Tab) 20 mg PO DAILY BERNARD Stop: 04/26/20 08:59 Last Admin: 03/28/20 07:50 Dose: 20 mg Documented by: Dextrose (Dextrose 50% 50 Ml Syringe) 25 - 50 ml IV UD PRN; Protocol PRN Reason: Hypoglycemia Protocol Stop: 04/25/20 20:54 Diphenhydramine HCl (Diphenhydramine Hcl 25 Mg Cap) 25 mg PO Q6H PRN PRN Reason: Itching Stop: 04/26/20 16:14 Last Admin: 03/27/20 17:28 Dose: 25 mg Documented by: Furosemide (Furosemide 20 Mg Tab) 20 mg PO QAM BERNARD Stop: 04/26/20 08:59 Last Admin: 03/28/20 07:51 Dose: 20 mg Documented by: Glucagon (Glucagon For Inj 1 Mg Vial) 1 mg SQ UD PRN; Protocol PRN Reason: Hypoglycemia Protocol Stop: 04/25/20 20:54 Glucose (Glucose 10 Tabs/Tube) 4 - 8 tabs PO UD PRN; Protocol PRN Reason: Hypoglycemia Protocol Stop: 04/25/20 20:54 Glucose (Glucose 40% Gel 15 Gm Tube) 15 - 30 gm PO UD PRN; Protocol PRN Reason: Hypoglycemia Protocol Stop: 04/25/20 20:54 Insulin Aspart (Insulin Aspart 100 Units/Ml 3 Ml Pen) 0 units SC ACHS BERNARD Stop: 04/25/20 20:59 Last Admin: 03/28/20 07:51 Dose: 3 units Documented by: Lisinopril (Lisinopril 2.5 Mg Tab) 2.5 mg PO BID BERNARD Stop: 04/25/20 20:59 Last Admin: 03/28/20 07:51 Dose: 2.5 mg Documented by: Metoprolol Succinate (Metoprolol Succ 50mg Ext Rel Tab) 100 mg PO BID BERNARD Stop: 04/25/20 20:59 Last Admin: 03/28/20 07:50 Dose: 100 mg Documented by: Miscellaneous (Carbohydrates For Hypoglycemia ) 15 - 30 gm PO UD PRN PRN Reason: Hypoglycemia Protocol Stop: 04/25/20 20:54 Tamsulosin HCl (Tamsulosin Hcl 0.4 Mg Cap) 0.4 mg PO DAILY BERNARD Stop: 04/26/20 08:59 Last Admin: 03/28/20 07:51 Dose: 0.4 mg Documented by: Temazepam (Temazepam 7.5 Mg Capsule) 7.5 mg PO HS PRN PRN Reason: Sleep Stop: 04/25/20 20:54 Last Admin: 03/26/20 23:56 Dose: 7.5 mg Documented by: (1) Abdominal pain Abdominal location: unspecified location Qualified Code(s): R10.9 - Unspecified abdominal pain
[2020-03-29 07:42] LABS: BUN Creatinine Ratio 21.7 (10-20); Calcium 8.5 mg/dl (8.5-10.1); Creatinine Clr Calc Pharmacy 51.5 ml/min; Est GFR (African American) 52.1; Est GFR (Non-African American) 44.9
[2020-03-29] MEDS: METOPROLOL SUCC 50MG EXT REL TAB PO SCH ×2 (07:51→21:14)
[2020-03-29] MEDS: FUROSEMIDE 20 MG TAB PO SCH (07:52)
[2020-03-29] MEDS: APIXABAN 5 MG TABLET PO SCH ×2 (07:52→17:00)
[2020-03-29] MEDS: AMIODARONE 200 MG TAB PO SCH ×3 (07:52→17:00)
[2020-03-29] MEDS: TAMSULOSIN HCL 0.4 MG CAP PO SCH (07:52)
[2020-03-29] MEDS: ATORVASTATIN 20 MG TAB PO SCH (07:52)
[2020-03-29] MEDS: INSULIN ASPART 100 UNITS/ML 3 ML PEN SC SCH ×4 (07:56→21:12)
--- NOTE | 2020-03-29 10:10 | Cardiology Progress Note ---
Date of Service March 29, 2020 Assessment & Plan (1) Atrial fibrillation with rapid ventricular response: (2) Acute systolic (congestive) heart failure: (3) Elevated troponin I level: (4) Morbidly obese: (5) Dilated cardiomyopathy: (6) Abdominal pain: The patient was cardioverted last week successfully but reverted back to atrial fibrillation. She is now being loaded with amiodarone. I discussed the option of repeating the cardioversion with the patient. She has been continuou sly on Eliquis. She is willing to proceed. She understands the risk, benefit and intent of the cardioversion. The plan will be to continue to load her with the amiodarone through today and perform the cardioversion in the morning. Admission and Anticipated Discharge Date Admission Date: March 26, 2020 Subjective The patient had an uneventful night. She has no ongoing complaints. Review of Systems Review of Systems: All systems reviewed & are unremarkable except as noted in HPI & below Nothing additional to add. Physical Exam Physical Exam: General: no acute distress and stated age Head: normocephalic, no masses, lesions, tenderness or abnormalities Eyes: conjunctiva are pink and non-injected, sclera clear Neck: supple, no adenopathy, no bruits, normal jugular venous pulse, no hepatojugular reflux Chest: normal shape and normal respiratory effort Lungs: clear to auscultation and percussion Cardiac Exam: - irregular rate & rhythm, no murmurs gallops or rubs - normal S1, normal S2 Pulses: 2(+) throughout Abdomen: abdomen soft, non-tender, no abnormal masses and no hepatosplenomegaly Musculoskeletal: no gait disturbance, no joint inflammation, no deforming arthritis Extremities: no edema and no cyanosis Neuro: grossly normal exam Results & Data ([facility]) Vital Signs (Past 12 Hours) Vital Signs Temp Pulse Pulse Resp BP Pulse Ox 03/29/20 08:00 36.4 C L 81 20 122/76 99 03/29/20 07:30 85 03/29/20 03:46 36.3 C L 86 16 116/76 95 03/28/20 23:28 36.4 C L 92 H 20 112/65 96 03/28/20 23:00 90 Laboratory Results Laboratory Results - last 24 hr 03/28/20 03/28/20 03/28/20 11:22 16:02 20:10 Sodium Potassium Chloride Carbon Dioxide Anion Gap BUN Creatinine Est Cr Clr Drug Dosing Est GFR ( Amer) Est GFR (Non-Af Amer) BUN/Creatinine Ratio Glucose POC Glucose 188 H 118 H 179 H Calcium 03/29/20 03/29/20 06:35 07:37 Sodium 140 Potassium 4.0 Chloride 105 Carbon Dioxide 27 Anion Gap 8.0 BUN 26 H Creatinine 1.19 Est Cr Clr Drug Dosing 51.5 Est GFR ( Amer) 52.1 Est GFR (Non-Af Amer) 44.9 BUN/Creatinine Ratio 21.7 H Glucose 139 H POC Glucose 138 H Calcium 8.5 Medications Administered Current Inpatient Medications Acetaminophen (Acetaminophen 325 Mg Tab) 650 mg PO Q4H PRN PRN Reason: Pain or Fever Stop: 04/25/20 20:54 Last Admin: 03/28/20 19:29 Dose: 650 mg Documented by: Amiodarone HCl (Amiodarone 200 Mg Tab) 200 mg PO TIDM [facility] Stop: 04/26/20 11:59 Last Admin: 03/29/20 07:52 Dose: 200 mg Documented by: Apixaban (Apixaban 5 Mg Tablet) 5 mg PO BID17 [facility] Stop: 04/26/20 08:59 Last Admin: 03/29/20 07:52 Dose: 5 mg Documented by: Atorvastatin Calcium (Atorvastatin 20 Mg Tab) 20 mg PO DAILY [facility] Stop: 04/26/20 08:59 Last Admin: 03/29/20 07:52 Dose: 20 mg Documented by: Dextrose (Dextrose 50% 50 Ml Syringe) 25 - 50 ml IV UD PRN; Protocol PRN Reason: Hypoglycemia Protocol Stop: 04/25/20 20:54 Diphenhydramine HCl (Diphenhydramine Hcl 25 Mg Cap) 25 mg PO Q6H PRN PRN Reason: Itching Stop: 04/26/20 16:14 Last Admin: 03/27/20 17:28 Dose: 25 mg Documented by: Furosemide (Furosemide 20 Mg Tab) 20 mg PO QAM [facility] Stop: 04/26/20 08:59 Last Admin: 03/29/20 07:52 Dose: 20 mg Documented by: Glucagon (Glucagon For Inj 1 Mg Vial) 1 mg SQ UD PRN; Protocol PRN Reason: Hypoglycemia Protocol Stop: 04/25/20 20:54 Glucose (Glucose 10 Tabs/Tube) 4 - 8 tabs PO UD PRN; Protocol PRN Reason: Hypoglycemia Protocol Stop: 04/25/20 20:54 Glucose (Glucose 40% Gel 15 Gm Tube) 15 - 30 gm PO UD PRN; Protocol PRN Reason: Hypoglycemia Protocol Stop: 04/25/20 20:54 Sodium Chloride (Nss) 500 mls @ 80 mls/hr IV .Q6H15M BERNARD Stop: 04/28/20 23:29 Insulin Aspart (Insulin Aspart 100 Units/Ml 3 Ml Pen) 0 units SC ACHS BERNARD Stop: 04/25/20 20:59 Last Admin: 03/29/20 07:56 Dose: 2 units Documented by: Lisinopril (Lisinopril 2.5 Mg Tab) 2.5 mg PO BID [facility] Stop: 04/25/20 20:59 Last Admin: 03/29/20 07:51 Dose: 2.5 mg Documented by: Metoprolol Succinate (Metoprolol Succ 50mg Ext Rel Tab) 100 mg PO BID [facility]ARD Stop: 04/25/20 20:59 Last Admin: 03/29/20 07:51 Dose: 100 mg Documented by: Miscellaneous (Carbohydrates For Hypoglycemia ) 15 - 30 gm PO UD PRN PRN Reason: Hypoglycemia Protocol Stop: 04/25/20 20:54 Tamsulosin HCl (Tamsulosin Hcl 0.4 Mg Cap) 0.4 mg PO DAILY BERNARD Stop: 04/26/20 08:59 Last Admin: 03/29/20 07:52 Dose: 0.4 mg Documented by: Temazepam (Temazepam 7.5 Mg Capsule) 7.5 mg PO HS PRN PRN Reason: Sleep Stop: 04/25/20 20:54 Last Admin: 03/26/20 23:56 Dose: 7.5 mg Documented by: (1) Abdominal pain Abdominal location: unspecified location Qualified Code(s): R10.9 - Unspecified abdominal pain
--- NOTE | 2020-03-29 10:11 | Hospitalist Progress Note ---
Date of Service March 29, 2020 Assessment & Plan (1) Atrial fibrillation with rapid ventricular response: Failed DCCV last week. Remains in afib overnight on telemetry Was started on amio loading per Cardiology Planned for cardioversion tomorrow Cont Eliquis and Toprol XL 100mg BID. Has a h/o CVA in the past. (2) Dilated cardiomyopathy: EF 25%. Currently euvolemic Cont Toprol and lisinopril per home regimen. Cont Lasix 20mg QD. (3) Hypertension: Controlled Cont home regimen (4) Morbidly obese: Provided counselling for lifestyle modification including weight loss, exercise and diet (5) Abdominal pain: Resolved, no UTI (6) Elevated troponin I level: Chronically elevated. Pt denies chest pain and per Cardiology, she is not experiencing ACS. No further workup. (7) Hypomagnesemia: Repleted (8) Rash: Nonspecific back and chest rash is in a pattern of the Cardioversion pads that were placed on her last week for the DCCV. They look better after the Benadryl given causing her scratching to improve. (9) DMII (diabetes mellitus, type 2): ISS while hospitalized. A1C also at goal last month. (10) CKD (chronic kidney disease), stage III: At baseline (11) DVT prophylaxis: Eliquis Full Code Dispo-to home when medically stable. May benefit from home health for PT and OT once home. Admission and Anticipated Discharge Date Admission Date: March 26, 2020 Subjective Patient seen and examined. Reports feeling better Denied any palpitation, chest pain Denied any cough, chest pain, SOB Denied any abd pain, constipation, diarrhea Denied any dysuria, frequency, urgency Physical Exam Constitutional: + obese; no acute distress Eyes: PERRL, conjunctivae normal, anicteric sclerae ENMT: external ear and nose normal, oropharynx normal Respiratory: normal respiratory effort, lungs clear to auscultation Cardiovascular: Irregularly irregular, normal rate, S1 S2, no pedal edema Gastrointestinal (Abdomen): normal bowel sounds, soft, nontender, no hepatosplenomegaly Musculoskeletal: no cyanosis or clubbing, extremities motor strength 5/5 Neurologic: PERRL, EOMI, accommodation nl, no face palsy, no dysarthria Psychiatric: A+Ox3, euthymic affect Results & Data Results & Data ([facility]) Vital Signs (Past 12 Hours) Vital Signs Temp Pulse Pulse Resp BP Pulse Ox 03/29/20 08:00 36.4 C L 81 20 122/76 99 03/29/20 07:30 85 03/29/20 03:46 36.3 C L 86 16 116/76 95 03/28/20 23:28 36.4 C L 92 H 20 112/65 96 03/28/20 23:00 90 Laboratory Results Laboratory Results - last 24 hr 03/28/20 03/28/20 03/28/20 11:22 16:02 20:10 Sodium Potassium Chloride Carbon Dioxide Anion Gap BUN Creatinine Est Cr Clr Drug Dosing Est GFR ( Amer) Est GFR (Non-Af Amer) BUN/Creatinine Ratio Glucose POC Glucose 188 H 118 H 179 H Calcium 03/29/20 03/29/20 06:35 07:37 Sodium 140 Potassium 4.0 Chloride 105 Carbon Dioxide 27 Anion Gap 8.0 BUN 26 H Creatinine 1.19 Est Cr Clr Drug Dosing 51.5 Est GFR ( Amer) 52.1 Est GFR (Non-Af Amer) 44.9 BUN/Creatinine Ratio 21.7 H Glucose 139 H POC Glucose 138 H Calcium 8.5 (1) Abdominal pain Abdominal location: unspecified location Qualified Code(s): R10.9 - Unspecified abdominal pain
[2020-03-29] MEDS: ACETAMINOPHEN 325 MG TAB PO PRN ×2 (12:28→16:59)
[2020-03-29] MEDS ORDERED: SODIUM CHLORIDE 0.9% 1000ML 1,000 ML IV SCH (23:30)
[2020-03-30 06:14] LABS: Hematocrit (blood only) 37.9 % (37-47); Hemoglobin 12.1 g/dL (12.0-16.0); Mean Corpuscular Hemoglobin 30.1 pg (25-34); Mean Corpuscular Hgb Conc 31.9 g/dL (32-36); Mean Corpuscular Volume 94.3 fL (80-100); Mean Platelet Volume 11.1 fL (7.4-10.4); Platelet Count 240 K/uL (130-400); RDW Coefficient of Variation 14.7 % (11.5-14.5); RDW Standard Deviation 50.5 fL (36.4-46.3); Red Blood Count 4.02 M/uL (4.2-5.4); White Blood Count 4.73 K/uL (4.8-10.8)
[2020-03-30 06:48] LABS: BUN Creatinine Ratio 21.5 (10-20); Calcium 8.7 mg/dl (8.5-10.1); Creatinine Clr Calc Pharmacy 50.3 ml/min; Est GFR (Non-African American) 43.2; Potassium 4.5 mmol/L (3.5-5.1)
--- NOTE | 2020-03-30 06:48 | Anesthesiology Consultation ---
Date of Service March 30, 2020 Assessment & Plan Chart Review Chart Review: Acceptable Risk for Surgery Consults Requested none ASA ASA4 Proposed Anesthesia Anesthesia Type: MAC Risk / Benefits Reviewed With: PT / POA / Parent / Guardian, Accepts Plan and Informed Consent Obtained History Surgery Operation Date: 03/30/20 07:30 Proposed Procedures p Cardioversion Director Of Mobile [employer] w/Anesthesia - Barron Eaton, DO Height/Weight Height: 5 ft 7 in Weight: 106 kg Allergies Allergy/AdvReac Type Severity Reaction Status Date / Time No Known Allergies Allergy Verified 03/22/20 08:31 Medications Home Medications Medication Instructions Recorded Confirmed Last Taken metformin 1,000 mg PO BID 02/04/20 03/26/20 Unknown polyethylene glycol 3350 [Miralax] 17 g PO DAILY PRN 02/04/20 03/26/20 Unknown tamsulosin 0.4 mg PO DAILY 02/04/20 03/26/20 Unknown temazepam 7.5 mg PO HS PRN 02/04/20 03/26/20 Unknown Eliquis 5 mg PO BID17 #60 tab 02/09/20 03/26/20 Unknown furosemide 20 mg PO QAM #30 tab 02/09/20 03/26/20 Unknown lisinopril 2.5 mg PO BID #0 tab 02/09/20 03/26/20 Unknown metoprolol succinate 100 mg PO BID #60 tab 02/09/20 03/26/20 Unknown atorvastatin 20 mg PO DAILY 03/22/20 03/26/20 Unknown digoxin 125 mcg PO UD 03/26/20 03/26/20 Unknown Active Medications Generic Name Dose Route Start Last Admin Trade Name Freq PRN Reason Stop Dose Admin Acetaminophen 650 mg 03/26/20 20:55 03/29/20 16:59 Acetaminophen 325 Mg Tab PO 04/25/20 20:54 650 mg Q4H PRN Administration Pain or Fever Amiodarone HCl 200 mg 03/27/20 12:00 03/29/20 17:00 Amiodarone 200 Mg Tab PO 04/26/20 11:59 200 mg TIDM BERNARD Administration Apixaban 5 mg 03/27/20 09:00 03/29/20 17:00 Apixaban 5 Mg Tablet PO 04/26/20 08:59 5 mg BID17 BERNARD Administration Atorvastatin Calcium 20 mg 03/27/20 09:00 03/29/20 07:52 Atorvastatin 20 Mg Tab PO 04/26/20 08:59 20 mg DAILY BERNARD Administration Diphenhydramine HCl 25 mg 03/27/20 16:15 03/27/20 17:28 Diphenhydramine Hcl 25 Mg Cap PO 04/26/20 16:14 25 mg Q6H PRN Administration Itching Furosemide 20 mg 03/27/20 09:00 03/29/20 07:52 Furosemide 20 Mg Tab PO 04/26/20 08:59 20 mg QAM BERNARD Administration Sodium Chloride 1,000 mls @ 80 mls/hr 03/29/20 23:30 03/29/20 23:56 Nss 1000ml IV 04/28/20 23:29 80 mls/hr .[id number] BERNARD Administration Insulin Aspart 0 units 03/26/20 21:00 03/29/20 21:12 Insulin Aspart 100 Units/Ml 3 Ml Pen SC 04/25/20 20:59 Not Given ACHS BERNARD Lisinopril 2.5 mg 03/26/20 21:00 03/29/20 21:14 Lisinopril 2.5 Mg Tab PO 04/25/20 20:59 2.5 mg BID BERNARD Administration Metoprolol Succinate 100 mg 03/26/20 21:00 03/29/20 21:14 Metoprolol Succ 50mg Ext Rel Tab PO 04/25/20 20:59 100 mg BID BERNARD Administration Tamsulosin HCl 0.4 mg 03/27/20 09:00 03/29/20 07:52 Tamsulosin Hcl 0.4 Mg Cap PO 04/26/20 08:59 0.4 mg DAILY BERNARD Administration Temazepam 7.5 mg 03/26/20 20:55 03/26/20 23:56 Temazepam 7.5 Mg Capsule PO 04/25/20 20:54 7.5 mg HS PRN Administration Sleep NPO Date Last Intake of Fluids: 03/30/20 Time Last Intake of Fluids: 00:00 Date Last Intake of Solids: 03/30/20 Time Last Intake of Solids: 00:00 Past Medical History Medical History (Updated 03/30/20 @ 07:31 by Antonio Rai DO) Acute systolic (congestive) heart failure Atrial fibrillation with rapid ventricular response CKD (chronic kidney disease), stage III CVA (cerebral vascular accident) Dilated cardiomyopathy DMII (diabetes mellitus, type 2) Elevated troponin I level Hypertension Morbidly obese Exercise / Class Metabolic Activity III < 4 Walking/Shop/Light housework Past Anesthesia History No Hx of Anesthesia Complications and No Family Hx of Anesthesia Complications History of PONV No Hx of PONV and No Hx of Motion Sickness Social History Smoking Status: Never smoker Do You Dip or Chew Tobacco: No Hx Alcohol Use: No Hx Substance Use: No substance use type: does not use Physical Exam Vital Signs Last Vital Signs Temp 97.5 F L 03/30/20 05:00 Pulse 76 03/30/20 05:00 Resp 18 03/30/20 05:00 BP 123/76 03/30/20 05:00 Pulse Ox 96 03/30/20 05:00 ENMT Mouth: no dentition abnormality Thyromental Distance: > or= 3.5 Finger Breadths Mallampati Class: II Neck normal visual inspection Respiratory normal respiratory effort Auscultation: lungs clear to auscultation bilaterally Cardiovascular Rate/Rhythm: + abnormal rate and + abnormal rhythm Testing Laboratory Results 03/30/20 05:52 03/30/20 05:52 Urine Color Yellow 03/26/20 15:45 Urine Appearance Clear (Clear) 03/26/20 15:45 Urine pH 5.0 (4.5-7.5) 03/26/20 15:45 Ur Specific [place] 1.013 (1.000-1.030) 03/26/20 15:45 Urine Protein Negative (Negative) 03/26/20 15:45 Urine Glucose (UA) Negative (Negative) 03/26/20 15:45 Urine Ketones Negative (Negative) 03/26/20 15:45 Urine Nitrite Negative (Negative) 03/26/20 15:45 Ur Leukocyte Esterase Negative (Negative) 03/26/20 15:45 03/29/20 20:33 POC Glucose 153 H Electrocardiogram Date: 03/26/20 Atrial fibrillation with rapid ventricular response, rate [address] & T wave abnormality, consider inferolateral ischemia Abnormal ECG When compared with ECG of 22-MAR-2020 09:34, Atrial fibrillation has replaced Possible wandering atrial pacemaker Confirmed by Kenneth Delcid ([id number]) on 03/28/2020 6:26:34 AM Chest X-Ray Date: 03/26/20 Findings: + NAD Echocardiogram Date: 02/04/20 The LV is mildly dilated LV systolic function is severely reduced EF 25-30% Severe global hypokinesis of the LV RV is normal size RV systolic function is reduced LA is moderately dilated Mild MR Trace TR Estimated PA pressure is 39 mmHg Dilated inferior vena cava with reduced collapsability with sniff indicated an elevated RA pressure of 15 mmHg Cardiac Catheterization Date: 02/07/20 Summary of Findings Normal right dominant coronary anatomy without obstruction Left main: Long of modest caliber, bifurcating without disease Left anterior descending: Type II vessel with tortuous anatomy giving rise to a large septal branch and 2 diagonal branches in its midportion. There is no disease in the left and descending Left circumflex: Moderately large vessel giving rise to a trivial high marginal branch and a large bifurcating obtuse marginal there is no disease in left circumflex Right coronary artery: Moderate caliber but very large in distribution giving rise to a conus branch and 2 large right ventricular branches in its proximal and mid third. It then courses to give rise to a small posterior descending artery and a large long terminal posterior ventricular branch reaching well to the apex. There is no disease in the right coronary artery LV angiography: Not performed, left ventricle dilated on fluoroscopy LVEDP 23
[2020-03-30] MEDS ORDERED: PROPOFOL IV EMULSION 10 MG/ML 20 ML VIAL IV ONE (07:25)
--- NOTE | 2020-03-30 08:02 | Anesthesiology Progress Note ---
Date of Service March 30, 2020 Anesthesia Post Procedure Vital Signs Vital Signs: Temp Pulse Pulse Resp BP BP Pulse Ox 03/30/20 07:57 48 L 16 125/76 95 03/30/20 07:44 52 L 18 119/60 95 03/30/20 05:00 97.5 F L 76 18 123/76 96 03/30/20 01:06 98 H 03/29/20 23:31 97.9 F 105 H 20 129/76 95 03/29/20 16:06 98.1 F 83 18 120/67 94 03/29/20 15:00 105 H 03/29/20 11:54 98.1 F 86 20 135/87 97 Pain Intensity Right Knee: Pain Intensity: 4 Right Face: Pain Intensity: 8 Transfer of Care Handoff Completed per policy Notes Mental Status: alert / awake / arousable and participated in evaluation Patient Amnestic to Procedure: Yes Nausea / Vomiting: adequately controlled Pain: adequately controlled Airway Patency, RR, SpO2: stable & adequate BP & HR: stable & adequate Hydration State: stable & adequate Anesthetic Complications: no major complications apparent and Pt Satisfied with anesthetic care
--- NOTE | 2020-03-30 08:09 | Cardioversion ---
Date of Service March 30, 2020 Electrical Cardioversion Rpt Electrical Cardioversion Report The patient was brought to the holding area the [employer]. After informed consent was obtained the patient received sedation given by anesthesia. She then received 300 J of synchronized energy which converted her to normal sinus rhythm. She tolerated the procedure well and was returned to her room in stable condition.
[2020-03-30] MEDS: FUROSEMIDE 20 MG TAB PO SCH (08:16)
[2020-03-30] MEDS: TAMSULOSIN HCL 0.4 MG CAP PO SCH (08:16)
[2020-03-30] MEDS: METOPROLOL SUCC 50MG EXT REL TAB PO SCH ×2 (08:16→21:04)
[2020-03-30] MEDS: AMIODARONE 200 MG TAB PO SCH ×3 (08:17→18:04)
[2020-03-30] MEDS: APIXABAN 5 MG TABLET PO SCH ×2 (08:17→18:03)
[2020-03-30] MEDS: ATORVASTATIN 20 MG TAB PO SCH (08:17)
[2020-03-30] MEDS: INSULIN ASPART 100 UNITS/ML 3 ML PEN SC SCH ×4 (09:02→21:04)
[2020-03-30] MEDS: ACETAMINOPHEN 325 MG TAB PO PRN (09:04)
--- NOTE | 2020-03-30 09:18 | Cardiology Progress Note ---
Date of Service March 30, 2020 Assessment & Plan (1) Atrial fibrillation with rapid ventricular response: (2) Acute systolic (congestive) heart failure: (3) Elevated troponin I level: (4) Morbidly obese: (5) Dilated cardiomyopathy: (6) Abdominal pain: The patient had a successful cardioversion today. I would continue the amiodarone load through today and maintain her on telemetry. From a cardiac standpoint she is a potential discharge for tomorrow. She indicates to me that she may need some sort of transportation arrangement after discharge. Admission and Anticipated Discharge Date Admission Date: March 26, 2020 Subjective The patient had a successful cardioversion today. No new complaints. Review of Systems Review of Systems: All systems reviewed & are unremarkable except as noted in HPI & below Nothing additional to add. Physical Exam Physical Exam: General: no acute distress and stated age Head: normocephalic, no masses, lesions, tenderness or abnormalities Eyes: conjunctiva are pink and non-injected, sclera clear Neck: supple, no adenopathy, no bruits, normal jugular venous pulse, no hepatojugular reflux Chest: normal shape and normal respiratory effort Lungs: clear to auscultation and percussion Cardiac Exam: - regular rate & rhythm, no murmurs gallops or rubs - normal S1, normal S2 Pulses: 2(+) throughout Abdomen: abdomen soft, non-tender, no abnormal masses and no hepatosplenomegaly Musculoskeletal: no gait disturbance, no joint inflammation, no deforming arthritis Extremities: no edema and no cyanosis Neuro: grossly normal exam Results & Data ([facility]) Vital Signs (Past 12 Hours) Vital Signs Temp Pulse Pulse Resp BP BP Pulse Ox 03/30/20 08:07 36.3 C L 47 L 19 122/76 97 03/30/20 07:57 48 L 16 125/76 95 03/30/20 07:44 52 L 18 119/60 95 03/30/20 05:00 36.4 C L 76 18 123/76 96 03/30/20 01:06 98 H 03/29/20 23:31 36.6 C 105 H 20 129/76 95 Laboratory Results Laboratory Results - last 24 hr 03/29/20 03/29/20 03/29/20 11:14 16:26 20:33 WBC RBC Hgb Hct MCV MCH MCHC RDW Std Deviation RDW Coeff of Moises Plt Count MPV Sodium Potassium Chloride Carbon Dioxide Anion Gap BUN Creatinine Est Cr Clr Drug Dosing Est GFR ( Amer) Est GFR (Non-Af Amer) BUN/Creatinine Ratio Glucose POC Glucose 172 H 133 H 153 H Calcium 03/30/20 03/30/20 03/30/20 05:52 05:52 07:50 WBC 4.73 L RBC 4.02 L Hgb 12.1 Hct 37.9 MCV 94.3 MCH 30.1 MCHC 31.9 L RDW Std Deviation 50.5 H RDW Coeff of Moises 14.7 H Plt Count 240 MPV 11.1 H Sodium 140 Potassium 4.5 Chloride 106 Carbon Dioxide 30 Anion Gap 4.0 BUN 26 H Creatinine 1.23 H Est Cr Clr Drug Dosing 50.3 Est GFR ( Amer) 50.0 Est GFR (Non-Af Amer) 43.2 BUN/Creatinine Ratio 21.5 H Glucose 141 H POC Glucose 148 H Calcium 8.7 Medications Administered Current Inpatient Medications Acetaminophen (Acetaminophen 325 Mg Tab) 650 mg PO Q4H PRN PRN Reason: Pain or Fever Stop: 04/25/20 20:54 Last Admin: 03/30/20 09:04 Dose: 650 mg Documented by: Amiodarone HCl (Amiodarone 200 Mg Tab) 200 mg PO TIDM [facility] Stop: 04/26/20 11:59 Last Admin: 03/30/20 08:17 Dose: 200 mg Documented by: Apixaban (Apixaban 5 Mg Tablet) 5 mg PO BID17 [facility] Stop: 04/26/20 08:59 Last Admin: 03/30/20 08:17 Dose: 5 mg Documented by: Atorvastatin Calcium (Atorvastatin 20 Mg Tab) 20 mg PO DAILY [facility] Stop: 04/26/20 08:59 Last Admin: 03/30/20 08:17 Dose: 20 mg Documented by: Dextrose (Dextrose 50% 50 Ml Syringe) 25 - 50 ml IV UD PRN; Protocol PRN Reason: Hypoglycemia Protocol Stop: 04/25/20 20:54 Diphenhydramine HCl (Diphenhydramine Hcl 25 Mg Cap) 25 mg PO Q6H PRN PRN Reason: Itching Stop: 04/26/20 16:14 Last Admin: 03/27/20 17:28 Dose: 25 mg Documented by: Furosemide (Furosemide 20 Mg Tab) 20 mg PO QAM BERNARD Stop: 04/26/20 08:59 Last Admin: 03/30/20 08:16 Dose: 20 mg Documented by: Glucagon (Glucagon For Inj 1 Mg Vial) 1 mg SQ UD PRN; Protocol PRN Reason: Hypoglycemia Protocol Stop: 04/25/20 20:54 Glucose (Glucose 10 Tabs/Tube) 4 - 8 tabs PO UD PRN; Protocol PRN Reason: Hypoglycemia Protocol Stop: 04/25/20 20:54 Glucose (Glucose 40% Gel 15 Gm Tube) 15 - 30 gm PO UD PRN; Protocol PRN Reason: Hypoglycemia Protocol Stop: 04/25/20 20:54 Sodium Chloride (Nss 1000ml) 1,000 mls @ 80 mls/hr IV .[id number] BERNARD Stop: 04/28/20 23:29 Last Admin: 03/29/20 23:56 Dose: 80 mls/hr Documented by: Insulin Aspart (Insulin Aspart 100 Units/Ml 3 Ml Pen) 0 units SC ACHS BERNARD Stop: 04/25/20 20:59 Last Admin: 03/30/20 09:02 Dose: Not Given Documented by: Lisinopril (Lisinopril 2.5 Mg Tab) 2.5 mg PO BID [facility] Stop: 04/25/20 20:59 Last Admin: 03/30/20 08:18 Dose: 2.5 mg Documented by: Metoprolol Succinate (Metoprolol Succ 50mg Ext Rel Tab) 100 mg PO BID BERNARD Stop: 04/25/20 20:59 Last Admin: 03/30/20 08:16 Dose: 100 mg Documented by: Miscellaneous (Carbohydrates For Hypoglycemia ) 15 - 30 gm PO UD PRN PRN Reason: Hypoglycemia Protocol Stop: 04/25/20 20:54 Tamsulosin HCl (Tamsulosin Hcl 0.4 Mg Cap) 0.4 mg PO DAILY BERNARD Stop: 04/26/20 08:59 Last Admin: 03/30/20 08:16 Dose: 0.4 mg Documented by: Temazepam (Temazepam 7.5 Mg Capsule) 7.5 mg PO HS PRN PRN Reason: Sleep Stop: 04/25/20 20:54 Last Admin: 03/26/20 23:56 Dose: 7.5 mg Documented by: (1) Abdominal pain Abdominal location: unspecified location Qualified Code(s): R10.9 - Unspe cified abdominal pain
[2020-03-30] MEDS ORDERED: Nursing to Pharmacy Communication SCH (09:30)
--- NOTE | 2020-03-30 13:12 | Hospitalist Progress Note ---
Date of Service March 30, 2020 Assessment & Plan (1) Atrial fibrillation with rapid ventricular response: Failed DCCV last week. Successfully cardioverted this AM HR currently running 50s-60s Continue amiodarone loading Cont Eliquis and Toprol XL 100mg BID. Has a h/o CVA in the past. (2) Dilated cardiomyopathy: EF 25%. Currently euvolemic Cont Toprol and lisinopril per home regimen. Cont Lasix 20mg QD. (3) Hypertension: Controlled Cont home regimen (4) Morbidly obese: Provided counselling for lifestyle modification including weight loss, e xercise and diet (5) Abdominal pain: Resolved, no UTI (6) Elevated troponin I level: Chronically elevated. Pt denies chest pain and per Cardiology, she is not experiencing ACS. No further workup. (7) Hypomagnesemia: Repleted (8) Rash: Nonspecific back and chest rash is in a pattern of the Cardioversion pads that were placed on her last week for the DCCV. (9) DMII (diabetes mellitus, type 2): ISS while hospitalized. A1C also at goal last month. (10) CKD (chronic kidney disease), stage III: GRF at baseline Cr 1.23 today Avoid nephrotoxins (11) DVT prophylaxis: Manuel Full Code Dispo-Plan to dc tomorrow. May benefit from home health for PT and OT once home. Admission and Anticipated Discharge Date Admission Date: March 26, 2020 Subjective Patient seen and examined Patient had cardioversion this AM Denied any palpitation, chest pain Denied any cough, chest pain, SOB Denied any abd pain, constipation, diarrhea Denied any dysuria, frequency, urgency Physical Exam Constitutional: + obese; no acute distress Eyes: PERRL, conjunctivae normal, anicteric sclerae ENMT: external ear and nose normal, oropharynx normal Respiratory: normal respiratory effort, lungs clear to auscultation Cardiovascular: Rate/Rhythm: regular rhythm and + bradycardic (55) S1 S2 no pedal edema Gastrointestinal (Abdomen): normal bowel sounds, soft, nontender, no hepatosplenomegaly Musculoskeletal: no cyanosis or clubbing, extremities motor strength 5/5 Neurologic: PERRL, EOMI, accommodation nl, no face palsy, no dysarthria Psychiatric: A+Ox3, euthymic affect Results & Data Results & Data ([place]) Vital Signs (Past 12 Hours) Vital Signs Temp Pulse Resp BP BP Pulse Ox 03/30/20 11:00 36.3 C L 52 L 20 106/72 97 03/30/20 08:07 36.3 C L 47 L 19 122/76 97 03/30/20 07:57 48 L 16 125/76 95 03/30/20 07:44 52 L 18 119/60 95 03/30/20 05:00 36.4 C L 76 18 123/76 96 Laboratory Results Laboratory Results - last 24 hr 03/29/20 03/29/20 03/30/20 16:26 20:33 05:52 WBC RBC Hgb Hct MCV MCH MCHC RDW Std Deviation RDW Coeff of Moises Plt Count MPV Sodium 140 Potassium 4.5 Chloride 106 Carbon Dioxide 30 Anion Gap 4.0 BUN 26 H Creatinine 1.23 H Est Cr Clr Drug Dosing 50.3 Est GFR ( Amer) 50.0 Est GFR (Non-Af Amer) 43.2 BUN/Creatinine Ratio 21.5 H Glucose 141 H POC Glucose 133 H 153 H Calcium 8.7 03/30/20 03/30/20 03/30/20 05:52 07:50 11:28 WBC 4.73 L RBC 4.02 L Hgb 12.1 Hct 37.9 MCV 94.3 MCH 30.1 MCHC 31.9 L RDW Std Deviation 50.5 H RDW Coeff of Moises 14.7 H Plt Count 240 MPV 11.1 H Sodium Potassium Chloride Carbon Dioxide Anion Gap BUN Creatinine Est Cr Clr Drug Dosing Est GFR ( Amer) Est GFR (Non-Af Amer) BUN/Creatinine Ratio Glucose POC Glucose 148 H 213 H Calcium (1) Abdominal pain Abdominal location: unspecified location Qualified Code(s): R10.9 - Unspec ified abdominal pain
--- NOTE | 2020-03-31 06:41 | Electrocardiogram Report ---
Test Reason : Blood Pressure : / mmHG Vent. Rate : 060 BPM Atrial Rate : 050 BPM P-R Int : 172 ms QRS Dur : 108 ms QT Int : 412 ms P-R-T Axes : 065 005 193 degrees QTc Int : 412 ms Sinus bradycardia with marked sinus arrhythmia with occasional Premature ventricular complexes and Pr emature atrial complexes Abnormal ECG When compared with ECG of 26-MAR-2020 15:17, Sinus rhythm has replaced Atrial fibrillation Vent. rate has decreased BY 46 BPM Confirmed by Kenneth Delcid ([id number]) on 03/31/2020 6:41:23 AM Referred By: REFERRED SELF Confirmed By:Kenneth Delcid
[2020-03-31 07:50] LABS: Hematocrit (blood only) 36.3 % (37-47); Hemoglobin 11.7 g/dL (12.0-16.0); Mean Corpuscular Hemoglobin 30.4 pg (25-34); Mean Corpuscular Hgb Conc 32.2 g/dL (32-36); Mean Corpuscular Volume 94.3 fL (80-100); Mean Platelet Volume 11.3 fL (7.4-10.4); Platelet Count 225 K/uL (130-400); RDW Coefficient of Variation 14.7 % (11.5-14.5); RDW Standard Deviation 50.3 fL (36.4-46.3); Red Blood Count 3.85 M/uL (4.2-5.4)
[2020-03-31 08:23] LABS: BUN Creatinine Ratio 22.2 (10-20); Creatinine Clr Calc Pharmacy 47.3 ml/min; Est GFR (African American) 46.8; Est GFR (Non-African American) 40.4; Potassium 4.4 mmol/L (3.5-5.1)
[2020-03-31] MEDS: FUROSEMIDE 20 MG TAB PO SCH (08:39)
[2020-03-31] MEDS: APIXABAN 5 MG TABLET PO SCH (08:39)
[2020-03-31] MEDS: TAMSULOSIN HCL 0.4 MG CAP PO SCH (08:39)
[2020-03-31] MEDS: ATORVASTATIN 20 MG TAB PO SCH (08:40)
[2020-03-31] MEDS: METOPROLOL SUCC 50MG EXT REL TAB PO SCH (08:40)
[2020-03-31] MEDS: INSULIN ASPART 100 UNITS/ML 3 ML PEN SC SCH ×2 (08:41→13:03)
[2020-03-31] MEDS: AMIODARONE 200 MG TAB PO SCH (08:41)
--- NOTE | 2020-03-31 09:56 | Cardiology Progress Note ---
Date of Service March 31, 2020 Assessment & Plan (1) Atrial fibrillation with rapid ventricular response: (2) Acute systolic (congestive) heart failure: (3) Elevated troponin I level: (4) Morbidly obese: (5) Dilated cardiomyopathy: (6) Abdominal pain: The patient is maintaining sinus rhythm. I will reduce her dose of amiodarone to 200 mg twice daily. At this point I feel comfortable that she can be discharged with outpatient follow-up. I will arrange follow-up through our clinic. Admission and Anticipated Discharge Date Admission Date: March 26, 2020 Subjective The patient has no new cardiac complaints today. She had an uneventful night. Review of Systems Review of Systems: All systems reviewed & are unremarkable except as noted in HPI & below Nothing additional to add. Physical Exam Physical Exam: General: no acute distress and stated age Head: normocephalic, no masses, lesions, tenderness or abnormalities Eyes: conjunctiva are pink and non-injected, sclera clear Neck: supple, no adenopathy, no bruits, normal jugular venous pulse, no hepatojugular reflux Chest: normal shape and normal respiratory effort Lungs: clear to auscultation and percussion Cardiac Exam: - regular rate & rhythm, no murmurs gallops or rubs - normal S1, normal S2 Pulses: 2(+) throughout Abdomen: abdomen soft, non-tender, no abnormal masses and no hepatosplenomegaly Musculoskeletal: no gait disturbance, no joint inflammation, no deforming arthritis Extremities: no edema and no cyanosis Neuro: grossly normal exam Results & Data ([facility]) Vital Signs (Past 12 Hours) Vital Signs Temp Pulse Pulse Resp BP BP Pulse Ox 03/31/20 04:58 36.4 C L 56 L 20 157/68 H 98 03/30/20 23:28 36.6 C 62 18 132/69 97 03/30/20 23:00 58 L Laboratory Results Laboratory Results - last 24 hr 03/30/20 03/30/20 03/30/20 11:28 16:32 20:54 WBC RBC Hgb Hct MCV MCH MCHC RDW Std Deviation RDW Coeff of Moises Plt Count MPV Sodium Potassium Chloride Carbon Dioxide Anion Gap BUN Creatinine Est Cr Clr Drug Dosing Est GFR ( Amer) Est GFR (Non-Af Amer) BUN/Creatinine Ratio Glucose POC Glucose 213 H 131 H 163 H Calcium 09/11/1403/31/20 03/31/20 07:28 07:28 07:41 WBC 4.90 RBC 3.85 L Hgb 11.7 L Hct 36.3 L MCV 94.3 MCH 30.4 MCHC 32.2 RDW Std Deviation 50.3 H RDW Coeff of Moises 14.7 H Plt Count 225 MPV 11.3 H Sodium 140 Potassium 4.4 Chloride 106 Carbon Dioxide 28 Anion Gap 6.0 BUN 29 H Creatinine 1.30 H Est Cr Clr Drug Dosing 47.3 Est GFR ( Amer) 46.8 Est GFR (Non-Af Amer) 40.4 BUN/Creatinine Ratio 22.2 H Glucose 137 H POC Glucose 138 H Calcium 9.0 Medications Administered Current Inpatient Medications Acetaminophen (Acetaminophen 325 Mg Tab) 650 mg PO Q4H PRN PRN Reason: Pain or Fever Stop: 04/25/20 20:54 Last Admin: 03/30/20 09:04 Dose: 650 mg Documented by: Amiodarone HCl (Amiodarone 200 Mg Tab) 200 mg PO BIDM [facility] Stop: 04/30/20 16:59 Apixaban (Apixaban 5 Mg Tablet) 5 mg PO BID17 [facility] Stop: 04/26/20 08:59 Last Admin: 03/31/20 08:39 Dose: 5 mg Documented by: Atorvastatin Calcium (Atorvastatin 20 Mg Tab) 20 mg PO DAILY [facility] Stop: 04/26/20 08:59 Last Admin: 03/31/20 08:40 Dose: 20 mg Documented by: Dextrose (Dextrose 50% 50 Ml Syringe) 25 - 50 ml IV UD PRN; Protocol PRN Reason: Hypoglycemia Protocol Stop: 04/25/20 20:54 Diphenhydramine HCl (Diphenhydramine Hcl 25 Mg Cap) 25 mg PO Q6H PRN PRN Reason: Itching Stop: 04/26/20 16:14 Last Admin: 03/27/20 17:28 Dose: 25 mg Documented by: Furosemide (Furosemide 20 Mg Tab) 20 mg PO QAM BERNARD Stop: 04/26/20 08:59 Last Admin: 03/31/20 08:39 Dose: 20 mg Documented by: Glucagon (Glucagon For Inj 1 Mg Vial) 1 mg SQ UD PRN; Protocol PRN Reason: Hypoglycemia Protocol Stop: 04/25/20 20:54 Glucose (Glucose 10 Tabs/Tube) 4 - 8 tabs PO UD PRN; Protocol PRN Reason: Hypoglycemia Protocol Stop: 04/25/20 20:54 Glucose (Glucose 40% Gel 15 Gm Tube) 15 - 30 gm PO UD PRN; Protocol PRN Reason: Hypoglycemia Protocol Stop: 04/25/20 20:54 Insulin Aspart (Insulin Aspart 100 Units/Ml 3 Ml Pen) 0 units SC ACHS BERNARD Stop: 04/25/20 20:59 Last Admin: 03/31/20 08:41 Dose: 3 units Documented by: Lisinopril (Lisinopril 2.5 Mg Tab) 2.5 mg PO BID [facility]ARD Stop: 04/25/20 20:59 Last Admin: 03/31/20 08:39 Dose: 2.5 mg Documented by: Metoprolol Succinate (Metoprolol Succ 50mg Ext Rel Tab) 100 mg PO BID [facility] Stop: 04/25/20 20:59 Last Admin: 03/31/20 08:40 Dose: Not Given Documented by: Miscellaneous (Carbohydrates For Hypoglycemia ) 15 - 30 gm PO UD PRN PRN Reason: Hypoglycemia Protocol Stop: 04/25/20 20:54 Tamsulosin HCl (Tamsulosin Hcl 0.4 Mg Cap) 0.4 mg PO DAILY [facility] Stop: 04/26/20 08:59 Last Admin: 03/31/20 08:39 Dose: 0.4 mg Documented by: Temazepam (Temazepam 7.5 Mg Capsule) 7.5 mg PO HS PRN PRN Reason: Sleep Stop: 04/25/20 20:54 Last Admin: 03/26/20 23:56 Dose: 7.5 mg Documented by: (1) Abdominal pain Abdominal location: unspecified location Qualified Code(s): R10.9 - Unspec ified abdominal pain
--- NOTE | 2020-03-31 11:19 | Discharge Summary ---
Date of Service March 31, 2020 Admission HPI Per Admitting Provider 74-year-old female with history of atrial fibrillation status post cardioversion 03/22/2020 with conversion to sinus rhythm, On Eliquis, nonischemic cardiomyopathy ejection fraction 20 to 30%, CVA, diabetes, hypertension, stenting with abdominal discomfort and palpitations at 1 PM today. Patient underwent cardioversion last 03/22/[address] Tamez with successful conversion to sinus rhythm. She reports that she has been feeling well since that procedure until around 1:30 PM today while watching TV, patient felt very warm, flushed, lightheaded and had abdominal discomfort. Symptoms persisted prompting patient's to call the EMS. Patient was found to be in A. fib in RVR, heart rate up to 180s, diltiazem 10 mg IV given. At the ER, patient was started on diltiazem drip, heart rate improved to low 100 s. On exam, the patient was seen resting in bed, comfortable, oriented x3, not in distress. States that she feels better overall. Denies active chest pain, palpitations, dizziness, nausea, abdominal pain. No other symptoms Admission Exam Per Admitting Provider General- oriented x 3, not in distress, speaks in sentences with no effort or accessory muscle use Head- atraumatic Eyes- PERRL, EOMI, anicteric ENT- oropharynx clear Neck- supple, no JVD, no adenopathy, no thyromegaly; carotids +2/2, no bruits appreciated Lungs- clear to auscultation bilaterally, no rales/wheezes Heart-heart rate 108, irregularly irregular rhythm; no murmur, no gallop, no rub appreciated Abdomen- normal bowel sounds, nondistended, soft, nontender, no masses or hepatosplenomegaly Extremities- no pretibial edema, no calf tenderness; peripheral pulses intact Neuro- alert, oriented x 3; CN 2-12 grossly intact; motor 5/5 bilaterally;sensation 100% on all extremities; no other gross focal neurologic deficits Skin- warm & dry Principal Diagnosis Atrial fibrillation with RVR S/P cardioversion Discharge Exam Constitutional + obese; no acute distress Eyes PERRL, conjunctivae normal, anicteric sclerae ENMT external ear and nose normal, oropharynx normal Respiratory normal respiratory effort, lungs clear to auscultation Cardiovascular Rate/Rhythm: regular rate and regular rhythm s1 S2 Gastrointestinal (Abdomen) normal bowel sounds, soft, nontender, no hepatosplenomegaly Musculoskeletal no cyanosis or clubbing, extremities motor strength 5/5 Neurologic PERRL, EOMI, accommodation nl, no face palsy, no dysarthria Psychiatric A+Ox3, euthymic affect Discharge Data Allergies Allergy/AdvReac Type Severity Reaction Status Date / Time No Known Allergies Allergy Verified 03/22/20 08:31 Consultations 03/26/20 17:38 ED Decision to Admit Stat 03/26/20 20:55 Consult Cardiology Routine 03/29/20 09:59 Consult Anesthesiology Routine Procedures Performed Operation Date: 03/30/20 07:30 Actual Procedures p Cardioversion - Barron Eaton DO Ordered Studies 03/26/20 15:29 CT abd pelvis IV con only Stat Hospital Course (1) Atrial fibrillation with rapid ventricular response: Failed DCCV last week. Successfully cardioverted on 03/30/20 Was started on amiodarone loading Cont Eliquis and Toprol XL 100mg BID. Discharged on amiodarone 200mg bid until follow up with Cardiology office Digoxin discontinued (2) Dilated cardiomyopathy: EF 25%. Currently euvolemic Cont Toprol and lisinopril per home regimen. Cont Lasix 20mg QD. (3) Hypertension: Controlled Cont home regimen (4) Morbidly obese: Provided counselling for lifestyle modification including weight loss, exercise and diet (5) Abdominal pain: Resolved, no UTI (6) Elevated troponin I level: Chronically elevated. No ACS Likely from RVR (7) Hypomagnesemia: Repleted (8) Rash: Nonspecific back and chest rash is in a pattern of the Cardioversion pads that were placed on her last week for the DCCV. (9) DMII (diabetes mellitus, type 2): Continue home metformin (10) CKD (chronic kidney disease), stage III: Avoid nephrotoxins Total Time Total Time Spent Total Time Spent (In Minutes): 35 Total Time Includes: Examination of the Patient, Discharge Planning, Medication Reconciliation and Communication With Other Providers Discharge Plan Discharge Items Patient Disposition: Home - Home Health Services Reason For Visit: ATRIAL FIBRILLATION IN RVR Discharge Diagnosis: Atrial fibrillation with Rapid ventricular rate S/P cardioversion Condition on Discharge: Good Activity: Resume your previous activity Non-emergency contact: Primary Care Provider and Tractor Drill Operator Call non-emergency contact if: you have any medication questions and your symptoms worsen Follow-up/Referrals: Marianne Zamora MD [Primary Care Provider] - 04/04/20 1:00 pm (Date & Time 04/04/2020 1:00 PM Provider Marianne Moreno MD Department Internal Medicine [facility] ) Diet: Carb Consistent or DM2 and Heart Healthy Addtl Attending Provider Instructions: Ms Lucas. You came to the hospital complaining of abdominal discomfort, palpitation and feeling unwell. You were evaluated and found to have Atrial fibrillation, a type of abnormal heart rhythm. You were evaluated by the Tractor Drill Operator and started on new medication, amiodarone. It is very important that you continue to take this medication twice a day as prescribed until you follow up with the Cardiology office. You had cardioversion and your heart rhythm is back to normal sinus rhythm. PLEASE STOP TAKING DIGOXIN Please continue to take your eliquis and your other home medications. It was a pleasure taking care of you. Pending Studies at Discharge: No Stand-Alone Forms: My [facility] [place], Smoking Cessation Medications and DC Order Prescriptions: New amiodarone 200 mg Tablet 200 mg PO BIDM 30 Days Qty: 60 RF: 0 Continued polyethylene glycol 3350 [Miralax] 17 gram/dose Powder 17 g PO DAILY PRN (Reason: Constipation) RF: 0 metformin 1,000 mg Tablet 1,000 mg PO BID RF: 0 temazepam 7.5 mg Capsule 7.5 mg PO HS PRN (Reason: Sleep) RF: 0 tamsulosin 0.4 mg Capsule 0.4 mg PO DAILY RF: 0 Eliquis 5 mg Tablet 5 mg PO BID17 Qty: 60 RF: 2 metoprolol succinate 100 mg tablet extended release 24 hr 100 mg PO BID Qty: 60 RF: 2 furosemide 20 mg Tablet 20 mg PO QAM Qty: 30 RF: 2 lisinopril 2.5 mg Tablet 2.5 mg PO BID Qty: 0 RF: 0 atorvastatin 20 mg tablet 20 mg PO DAILY RF: 0 Discontinued digoxin 125 mcg (0.125 mg) tablet 125 mcg PO UD RF: 0 Discharge Orders: Discharge Order (Routine); Ordered 03/31/20 Ordered By: Linnette Green Admission Data Admit Date/Time: 03/26/20 18:52 Attending Provider: Linnette Green I. Admit Provider: Ashu Joseph Primary Care Provider: Marianne Zamora Other Providers: Ashu Joseph ; Barron Eaton ; Jaylin Fraga ; Neville Hernandez Other Interventions: Discharge Summary Assessment (RN) Last Done: 03/31/20 13:42
[2020-03-31] MEDS ORDERED: AMIODARONE 200 MG TAB PO SCH (17:00)
--- NOTE | 2020-04-06 15:28 | Coding Query ---
To promote full compliance with coding requirements relating to patient care, provider participation is requested in all cases of dry cell sealer uncertainty. Please assist us with the question(s) below: Coding Question(s): The diagnosis below was documented in the Cardiology Consultation on 03/27/20 and in all Cardiology Progress Notes from 03/28/20 through 03/31/20, however there is no documentation by attending or on Discharge Summary. Please indicate if it is still a possible diagnosis or ruled out. Physician's Response(s): ACUTE SYSTOLIC (CONGESTIVE) HEART FAILURE ( ) Diagnosed and POA ( ) Diagnosed and not POA ( ) Ruled out ( x ) Other (please specify) Patient did not have acute systolic heart failure. Was euvolemic on admission per H/P and when I evaluated as well. Has systolic heart failure from echo in 01/2020 MTDD
== END 2020-03-31 15:00 | disposition home health service (06) | DRG 310 ==
LOC: ED 15:05 → SUATTDRO 18:52 → 2S 18:52